=== PATIENT | female | born 1960 | race Caucasian/White ===

== ENCOUNTER 2017-11-11 07:07 | Day surgery (SDC) | payer BC, SELFPAY ==
[2017-11-08 14:10] VITALS: BMI 31.1
[2017-11-11] VITALS (15 sets, daily range): BP systolic 113–170; BP diastolic 63–88; PULSE 77–99; RESP 14–29; TEMP 36.3–36.5; O2SAT 93–99
--- NOTE | 2017-11-11 08:25 | P.PCN_ITS ---
- Procedure: Date: 11/11/17 Procedure Performed:: Colonoscopy with polypectomy Indications:: This is a 56-year-old female in need of screening colonoscopy. Performing Provider:: Surya Cobian MD Referring Provider:: Ro Hines APRN Sedation:: IV sedation with 13 milligrams of Versed and 200 mcg of fentanyl Procedure:: After informed consent was obtained, the patient was taken to the endoscopy suite. IV sedation ensued after she was transferred to the left lateral decubitus position. Digital rectal exam revealed no significant abnormality. The colonoscope was placed in position. The entire colon evaluated. Bowel preparation was poor with large volume irrigation and suctioning used to somewhat improve visualization. She also had fairly severe spasticity and tortuosity. Multiple polyps were excised (please see specimens below). The colonoscope was carefully removed and the patient was transferred to recovery. Findings:: Poor preparation Multiple polyps (see specimens) Fairly significant spasticity and lack of relaxation Moderate tortuosity Specimens:: Adjacent polyps at 75 cm 1.5 cm lobulated complex polyp at 70 cm (snared) 7 mm sessile polyp at 35 cm (snared) Polyp at 25 cm Lobulated polyp at 15 cm and 2 adjacent polyps (snare and biopsy) Recommendations:: Repeat colonoscopy with extended bowel patient in 6-12 months secondary to size/ nature/number of polyps and limited visualization. Complications:: No immediate with the exception of poor bowel preparation Estimated blood obtained (mL): 1
== END 2017-11-11 09:10 | disposition home or self-care (01) ==
LOC: OUTP 07:10
PROVIDERS: PCP Nurse Practitioner Family; Visit Provider Surgery
PROC: 0DJD8ZZ Inspection of Lower Intestinal Tract, Via Natural or Artificial Opening Endoscopic (ICD-10-PCS; CPT 45385; principal; 2017-11-11 07:30)
DX: Z12.11 Encounter for screening for malignant neoplasm of colon (principal); K63.5 Polyp of colon; D37.4 Neoplasm of uncertain behavior of colon
CPT/HCPCS: 45385; 45380; 99152; 99153

== ENCOUNTER → 2017-12-21 08:42 | Outpatient (POV) | payer BC, SELFPAY ==
[2017-12-21 11:07] LABS: Thyroid Stimulating Hormone 3.48 uIU/ml (0.358-3.740)
== END ==
PROVIDERS: PCP Nurse Practitioner Family; Visit Provider Internal Medicine
DX: Z12.2 Encounter for screening for malignant neoplasm of respiratory organs (principal); Z87.891 Personal history of nicotine dependence; R63.5 Abnormal weight gain
CPT/HCPCS: 36415; 84443

== ENCOUNTER → 2018-01-21 12:41 | Outpatient (CLI) | payer BC, SELFPAY ==
[2018-01-21 14:15] VITALS: BP 148/91; PULSE 98; RESP 16; O2SAT 95
[2018-01-21 14:30] VITALS: BP 133/92; PULSE 89; RESP 22; O2SAT 95
--- NOTE | 2018-01-21 14:31 | CT_ITS ---
CT lung screening Ordering Physician: Marlon Wilks MD Patient Age: 57 years: Female HISTORY: ITS.REASON: PERSONAL HX OF TOBACCO USE EXAM: CT LUNG LOW DOSE WO CONTRAST COMPARISON: None HISTORY: 30 pack-year history . One pack per day 30 years. Quit smoking 3 years ago FINDINGS: FINDINGS: No suspicious lung nodules or masses . The previously noted 2 noncalcified questionable areas of density/nodularity in the RUL centrally are less evident on today and appeared to be merely areas of minimal scarring. There is also some linear scarring anteriorly at the right upper lobe adjacent to mediastinum Prominent 8 mm Calcified granuloma lingula with associated fibrotic change. 8 mm Left apical dense calcified granuloma also noted and stable. It is a benign features Again No suspicious pulmonary nodules . LUNG PARENCHYMA Emphysema: Mild centrilobular emphysematous changes Airways disease: Subtle Minor bronchial thickening Fibrosis: Scattered mild pulmonary fibrotic change OTHER ANATOMIC REGIONS Lymph Nodes: Scattered calcified lymph nodes hilar regions bilaterally reflecting old granulomatous disease. Calcified nodes also seen towards left aspect mediastinum. No significant adenopathy Pleura: A few scattered areas of parenchymal scarring. Unimpressive. No pleural effusion or significant pleural findings. Cardiac: Coronary artery calcifications are present OTHER FINDINGS: Stable Mildly enlarged left adrenal gland likely due to modest benign adenoma. This is nicely seen on March 2017 CT abdomen as well . IMPRESSION:====== 1. No areas of significant concern. .. Follow-up in one year recommended. 2. Lung RADS Category: Category 1 Benign calcified granulomatous nodules.. (The previously small questioned RUL nodules last years study less evident today appear to be merely due to scarring on today's exam) 3..: Mild emphysematous change with old granulomatous disease and scattered minor areas of fibrosis. Stable appearing probable benign left adrenal nodule.. . RECOMMENDATIONS:: One year LDCT follow-up. TECHNIQUE: The exam was performed on a GE Light Speed [address] scanner using 3.0 mGy CTDI. A low dose helical CT CHEST was performed on a multi-detector scanner. All CT scans at this facility use one or more dose reduction techniques, viz.: automated exposure control; ma/kV adjustment per patient size (including targeted exams where dose is matched to indication; i.e. head) or iterative reconstruction technique. The LDCT was performed in a facility that meets the criteria for the screening program. Data regarding this exam was submitted to ACR which is an approved registry. The order for this exam indicates that it came as a result of a lung cancer screening counseling shard decision-making visit that included all the elements required of such a visit including smoking cessation. The radiologist interpreting this exam meets the CMS criteria for the LDCT lung cancer screening program. The exam is reported using the Lung-RADS classification scale and reported to the ACR registry. NOTE: This study was performed for the specific purposes of lung cancer screening and is not an alternative to diagnostic chest CT. RADIATION DOSE: CTDI vol(CT dose Index-volume) = 2.9mGy DLP (Dose Length Product) = 100.7 mGy-cm
== END ==
PROVIDERS: PCP Nurse Practitioner Family; Visit Provider Internal Medicine
DX: Z87.891 Personal history of nicotine dependence (principal); Z12.2 Encounter for screening for malignant neoplasm of respiratory organs; R06.02 Shortness of breath; J44.9 Chronic obstructive pulmonary disease, unspecified; R63.5 Abnormal weight gain
CPT/HCPCS: 94060; 94618; 94640; 94726; 94729

== ENCOUNTER → 2018-07-05 08:46 | Outpatient (POV) | payer BC, SELFPAY ==
--- NOTE | 2018-07-05 10:24 | XR_ITS ---
XR chest 2V HISTORY: ITS.REASON: Asthma-COPD OVERLAP SYMDROME, PAROXYSMAL NOCTURNAL DYSPNEA ORDERING PHYSICIAN: Tish Gracia PATIENT AGE: 57 years COMPARISON: None FINDINGS: Prominent pericardial fat pad noted on the right. Calcified granuloma is present in the left apex and lingula. No lobar consolidation or collapse. There is hyperinflation with attenuation of the peripheral pulmonary vessels consistent with COPD There is minimal blunting of the right CP angle suggesting trace effusion. No acute bony anomalies. IMPRESSION: Trace right-sided effusion. Mild hyperinflation consistent with COPD. Old granulomatous disease
[2018-07-05 11:09] LABS: Alanine Aminotransferase 58 U/L (12-78); Albumin Level 3.7 gm/dL (3.4-5.0); Albumin/Globulin Ratio 1.2 (1.1-1.8); Alkaline Phosphatase 111 U/L (46-116); Anion Gap 15.4 mEq/L (5-15); Aspartate Amino Transferase 28 U/L (15-37); Bilirubin,Total 0.4 mg/dL (0.2-1.0); Blood Urea Nitrogen 8 mg/dL (7-18); Calcium 8.9 mg/dL (8.5-10.1); Carbon Dioxide 26 mmol/L (21.0-32.0); Chloride 103 mmol/L (98-107); Creatine Kinase 43 U/L (26-192); Creatinine,Serum 0.54 mg/dL (0.55-1.02); Estimated Glomerular Filt Rate 116 ml/min (>60); GFR (African American) 140 ML/MIN (>60); Globulin 3.2 gm/dl (1.3-3.2); Glucose 129 mg/dL (74-106); Potassium 4.4 mmoL/L (3.5-5.1); Sodium 140 mmol/L (136-145); Total Protein,Serum 6.9 gm/dL (6.4-8.2)
[2018-07-05 11:15] LABS: Basophils % 0.4 % (0.1-2.0); Eosinophils # 0.2 K/mm3 (0.0-0.4); Eosinophils % 2.7 % (0.1-12.0); Hematocrit 44.2 % (37.0-47.0); Hemoglobin 14.7 g/dL (12.2-16.2); Lymphocytes # 1.8 K/mm3 (0.7-4.5); Lymphocytes % 23.3 K/mm3 (10-50); Mean Corpuscular HGB Conc 33.3 g/dL (31.8-35.4); Mean Corpuscular Hemoglobin 32.1 pg (27.0-31.2); Mean Corpuscular Volume 96.4 fl (81-99); Mean Platelet Volume 6.9 fl (7.4-10.4); Monocytes # 0.3 K/mm3 (0.1-1.0); Monocytes % 4.3 % (1.7-9.3); Neutrophils # 5.4 K/mm3 (1.8-7.8); Neutrophils % 69.2 % (37.0-80.0); Platelet Count 420 K/mm3 (142-424); Red Blood Count 4.58 M/mm3 (4.20-5.40); White Blood Count 7.8 K/mm3 (4.8-10.8)
[2018-07-05 11:56] LABS: D-Dimer < 100 ng/mL (0-400)
== END ==
LOC: SC 08:48 → RAD 10:04
PROVIDERS: PCP Nurse Practitioner Family; Visit Provider Nurse Practitioner Family
DX: R06.00 Dyspnea, unspecified (principal); J44.9 Chronic obstructive pulmonary disease, unspecified; M79.10 Myalgia, unspecified site
CPT/HCPCS: 36415; 71046; 80053; 82550; 85025; 85378; 93005

== ENCOUNTER → 2018-08-23 09:34 | Outpatient (POV) | payer BC, SELFPAY | PROVIDERS: Visit Provider Internal Medicine | DX: Z00.00 Encounter for general adult medical examination without abnormal findings (principal) ==

== ENCOUNTER → 2018-08-31 12:08 | Outpatient (CLI) | payer MEDICARE, SELFPAY ==
[2018-08-31 14:21] LABS: Alanine Aminotransferase 55 U/L (12-78); Albumin Level 3.8 gm/dL (3.4-5.0); Albumin/Globulin Ratio 1.1 (1.1-1.8); Alkaline Phosphatase 122 U/L (46-116); Anion Gap 18.4 mEq/L (5-15); Aspartate Amino Transferase 30 U/L (15-37); Bilirubin,Total 0.4 mg/dL (0.2-1.0); Blood Urea Nitrogen 8 mg/dL (7-18); Calcium 9.4 mg/dL (8.5-10.1); Carbon Dioxide 26 mmol/L (21.0-32.0); Chloride 100 mmol/L (98-107); Chol/HDL Ratio 2.2 (1-3.5); Cholesterol 249 mg/dL (140-200); Creatinine,Serum 0.52 mg/dL (0.55-1.02); Estimated Glomerular Filt Rate 121 ml/min (>60); GFR (African American) 147 ML/MIN (>60); Globulin 3.5 gm/dl (1.3-3.2); Glucose 117 mg/dL (74-106); HDL Cholesterol 113 mg/dL (29-89); LDL Cholesterol 114 mg/dL (0-130); Potassium 4.4 mmoL/L (3.5-5.1); Sodium 140 mmol/L (136-145); Total Protein,Serum 7.3 gm/dL (6.4-8.2); Triglycerides 108 mg/dL (30-200); VLDL Cholesterol 22 mg/dL (0-40)
== END ==
PROVIDERS: Visit Provider Nurse Practitioner Family
DX: Z00.00 Encounter for general adult medical examination without abnormal findings (principal); J44.9 Chronic obstructive pulmonary disease, unspecified; I10 Essential (primary) hypertension
CPT/HCPCS: 36415; 80053; 80061

== ENCOUNTER → 2018-09-13 10:52 | Outpatient (CLI) | payer MEDICARE, SELFPAY ==
--- NOTE | 2018-09-13 10:53 | MM_ITS ---
MM Dig screening mamm BI w/CAD ORDERING PHYSICIAN : Ro Hines PATIENT AGE: 57 years GENDER: Female COMPARISON: Previous mammogram from [facility] September 01, 2017. We previous called other prior [place] mammogram studies in but they have never arrived. INDICATION: ITS.REASON: SCREENING no hormones. No new complaints. Previous lumpectomy and radiation for breast malignancy right breast 2001 Family history. Maternal grandmother with breast cancer. TECHNIQUE: Standard CC and MLO images were obtained. R2 CAD reviewed. FINDINGS: With mild to moderate scattered fibroglandular elements bilaterally. Overall lower density breast. No dominant or suspicious mass ; nor suspicious calcifications either breast. RIGHT BREAST: No new findings.. Surprisingly minimal architectural changes from the previous lumpectomy right breast. Only noted with some mild architectural distortion towards upper-outer quadrant Architecture and appearance is shows no change on either the right breast. Stable Scattered benign calcifications again noted Only history sheet the technologist noted clinical scar at 9:00 right breast as well as towards right axilla LEFT BREAST: Large axillary lymph node left breast again observed. On . Stable benign calcifications upper-outer quadrant left breast. Scattered. Can be followed. IMPRESSION: ... Stable bilateral mammogram 2017. No significant new findings. Modest stable Postsurgical changes evident at right breast. No new areas of concern either breast. Bilateral follow-up one year recommended BI-RADS Category: 2 Benign Finding(s) RECOMMENDED FOLLOW-UP: 1YR 1 YEAR FOLLOW-UP (A letter has been sent to the patient regarding results of the study.)
== END ==
PROVIDERS: PCP Nurse Practitioner Family; Visit Provider Nurse Practitioner Family
DX: Z12.31 Encounter for screening mammogram for malignant neoplasm of breast (principal); Z85.3 Personal history of malignant neoplasm of breast
CPT/HCPCS: 77067

== ENCOUNTER → 2018-09-29 11:12 | Outpatient (CLI) | payer MEDICARE, SELFPAY ==
[2018-09-29 12:53] LABS: Anion Gap 16.8 mEq/L (5-15); Blood Urea Nitrogen 12 mg/dL (7-18); Calcium 9.4 mg/dL (8.5-10.1); Carbon Dioxide 26 mmol/L (21.0-32.0); Chloride 100 mmol/L (98-107); Creatinine,Serum 0.74 mg/dL (0.55-1.02); Estimated Glomerular Filt Rate 81 ml/min (>60); GFR (African American) 98 ML/MIN (>60); Glucose 106 mg/dL (74-106); Potassium 4.8 mmoL/L (3.5-5.1); Sodium 138 mmol/L (136-145)
== END ==
PROVIDERS: Visit Provider Nurse Practitioner Family
DX: I10 Essential (primary) hypertension (principal)
CPT/HCPCS: 36415; 80048

== ENCOUNTER → 2018-12-28 12:09 | Outpatient (CLI) | payer MEDICARE, SELFPAY ==
[2018-12-28 13:22] LABS: Basophils % 0.5 % (0.1-2.0); Eosinophils # 0.2 K/mm3 (0.0-0.4); Eosinophils % 2.5 % (0.1-12.0); Hematocrit 42.1 % (37.0-47.0); Hemoglobin 14.1 g/dL (12.2-16.2); Lymphocytes # 1.6 K/mm3 (0.7-4.5); Lymphocytes % 21.9 % (10-50); Mean Corpuscular HGB Conc 33.6 g/dL (31.8-35.4); Mean Corpuscular Hemoglobin 31.8 pg (27.0-31.2); Mean Corpuscular Volume 94.5 fl (81-99); Mean Platelet Volume 6.6 fl (7.4-10.4); Monocytes # 0.4 K/mm3 (0.1-1.0); Neutrophils # 5.2 K/mm3 (1.8-7.8); Neutrophils % 70.2 % (37.0-80.0); Platelet Count 428 K/mm3 (142-424); Red Blood Count 4.45 M/mm3 (4.20-5.40); White Blood Count 7.3 K/mm3 (4.8-10.8)
[2018-12-28 14:17] LABS: Alanine Aminotransferase 47 U/L (12-78); Blood Urea Nitrogen 7 mg/dL (7-18)
[2018-12-28 14:22] LABS: Albumin Level 3.6 gm/dL (3.4-5.0); Albumin/Globulin Ratio 0.9 (1.1-1.8); Alkaline Phosphatase 104 U/L (46-116); Anion Gap 16.8 mEq/L (5-15); Aspartate Amino Transferase 29 U/L (15-37); Bilirubin,Total 0.4 mg/dL (0.2-1.0); Carbon Dioxide 24 mmol/L (21.0-32.0); Chloride 103 mmol/L (98-107); Creatinine,Serum 0.61 mg/dL (0.55-1.02); Estimated Glomerular Filt Rate 100 ml/min (>60); GFR (African American) 121 ML/MIN (>60); Globulin 3.8 gm/dl (1.3-3.2); Glucose 107 mg/dL (74-106); Potassium 3.8 mmoL/L (3.5-5.1); Sodium 140 mmol/L (136-145); Thyroid Stimulating Hormone 2.79 uIU/ml (0.358-3.740); Total Protein,Serum 7.4 gm/dL (6.4-8.2)
== END ==
PROVIDERS: PCP Internal Medicine Adolescent Medicine; Visit Provider Nurse Practitioner Family
DX: R00.2 Palpitations (principal); R42 Dizziness and giddiness; R06.02 Shortness of breath
CPT/HCPCS: 36415; 80053; 84443; 85025; 93225; 93226

== ENCOUNTER → 2019-01-03 14:10 | Outpatient (CLI) | payer MEDICARE, SELFPAY ==
--- NOTE | 2019-01-03 | CA_ITS ---
PROCEDURE: 2-D M-mode and color Doppler study INDICATIONS FOR THE TEST: Chest pain COPD Heart Murmur Tobacco Smoking PalpitationsX Fatigue Syncope Edema Hypertension Diabetes Mellitus Rheumatic Fever SOB DOEXObesity Hyperlipidemia Family History HD Additional History DIZZINESS BUBBLE STUDY APPEARS NEGATIVE PATIENT INFORMATION HEIGHT: 62 WEIGHT:175 GENDER: Female B/P:110/70 2-D/M-MODE INTERPRETATION: 2-D MEASUREMENTS OBSERVED VALUES IN CMS Right Ventricular Dimension (RVDd) 2.0 Interventricular Septum (Thickness)(IVsd) 1.0 Left Ventricular Internal Dimensions(LVIDd) 4.9 Left Ventricular Posterior Wall (Thickness)(LVPWd) 1.0 Aortic Root 3.3 Aortic Cusp Separation 1.7 Left Atrial Dimensions (LAD) 3.0 2D 1. Left atrium is normal size, left ventricle is normal size, there is no concentric left ventricular hypertrophy, visually estimated ejection fraction 55% with no regional wall motion abnormality. 2. The right atrium and right ventricle are normal size and contractility. 3. The aortic valve is minimally thickened and fibrosed. 4. The mitral and tricuspid valvular grossly normal. 5. The pulmonic valve is poorly visualized. 6. No significant pericardial effusion noted. DOPPLER INTERROGATION: Doppler interrogation of the aortic, mitral and tricuspid valvular presence of mild mitral and tricuspid regurgitation, tricuspid regurgitation jet velocity is inadequate for calculation of the right ventricular systolic pressure, grade 1 diastolic dysfunction seen without tissue Doppler evidence of raised left atrial pressure, agitated saline contrast study fails to identify intracardiac shunt. CONCLUSION: 1. Normal left ventricular size, preserved left ventricular systolic function, visually estimated ejection fraction 55% with no regional wall motion abnormality, grade 1 diastolic dysfunction seen without tissue Doppler evidence of raised left atrial pressure. 2. Mild mitral and tricuspid regurgitation 3. Agitated saying contrast study fails to identify intracardiac shunt.
== END ==
PROVIDERS: PCP Nurse Practitioner Family; Visit Provider Nurse Practitioner Family
DX: R00.2 Palpitations (principal); R42 Dizziness and giddiness; R06.02 Shortness of breath
CPT/HCPCS: 93306

== ENCOUNTER → 2019-01-31 06:47 | Outpatient (CLI) | payer MEDICARE, SELFPAY ==
--- NOTE | 2019-01-31 06:52 | NM_ITS ---
SPECT MYOCARDIAL PERFUSION SCAN, REST AND STRESS: EXERCISE STRESS: [facility] REVIEW QGS EF AND WALL MOTION EVALUATION: QPS - PERFUSION EVALUATION: HISTORY: SOB, Palpitations, Syncope, HTN, Family history PROCEDURE: Rest imaging performed after administration of10.60 millicuries Tc MIBI. Dose administered at7:00 a.m., with imaging thereafter. Stress imaging was then performed following5 minutes 30 seconds of exercise stress. The patient achieved a heart [id number] with projected heart rate of137 . Resting BP126/82 with stress 158/85. At maximum exercise stress,30.7 millicuries Tc MIBI administered at8:20 a.m. with [id number] minutes thereafter. FINDINGS: Perfusion Evaluation: The single slice spect images as well as the [facility] bull's-eye data summary were reviewed. Wall Motion and Ejection Fraction Evaluation: Gated SPECT review and analysis used to evaluate these features. There is a 65 % left ventricular ejection fraction. There seems to be good wall motion Uniform myocardial activity at both stress and rest IMPRESSION: No scintigraphic evidence of stenosis is myocardial ischemia with normal ejection fraction normal wall motion
--- NOTE | 2019-01-31 07:34 | HMH.ITSHM ---
Current Home Medications as stated by this patient Kaykay Wakefield or personnel representative. []PROAIR CLARITAN RINITADINE MELATONIN BYSTOLIC LISINOPRIL MONTELUKAST NASAL SPRAY TRELEGY ELIPTA ALBUTEROL
== END ==
PROVIDERS: PCP Nurse Practitioner Family; Visit Provider Nurse Practitioner Family
DX: R06.09 Other forms of dyspnea (principal); R00.2 Palpitations; I49.3 Ventricular premature depolarization
CPT/HCPCS: 78452; 93017

== ENCOUNTER → 2019-02-09 12:40 | Outpatient (CLI) | payer MEDICARE, SELFPAY ==
--- NOTE | 2019-02-09 13:00 | CT_ITS ---
CT lung screening EXAM: CT LUNG LOW DOSE WO CONTRAST HISTORY: Greater than 35 pack year smoking history, asymptomatic for lung cancer ITS.REASON: HX TOBACCO USE ORDERING PHYSICIAN: Marlon Wilks MD PATIENT AGE: 58 years COMPARISON: 01/21/2018 TECHNIQUE: The exam was performed on a GE Light Speed [address] scanner using 2.90 mGy CTDI. A low dose helical CT CHEST was performed on a multi-detector scanner. All CT scans at the facility use one or more dose reduction, viz: automated exposure control, ma/kV adjustment per patient size (including targeted exams where dose is matched to indication, i.e. head), or iterative reconstruction technique. The LDCT was performed in a facility that meets the criteria for the screening program. Data regarding this exam was submitted to ACR which is an approved registry. The order for this exam indicates that it came as a result of a lung cancer screening counseling shard decision-making visit that included all the elements required of such a visit including smoking cessation. The radiologist interpreting this exam meets the CMS criteria for the LDCT lung cancer screening program. The exam is reported using the Lung-RADS classification scale and reported to the ACR registry. NOTE: This study was performed for the specific purposes of lung cancer screening and is not an alternative to diagnostic chest CT. RADIATION DOSE: CTDI vol(CT dose Index-volume) = 2.90mG DLP (Dose Length Product) = 96.38 mGcm FINDINGS: Centrilobular emphysema/COPD. Old granulomatous disease with scattered calcified granulomas and scattered areas of scarring. No suspicious pulmonary nodules identified. There are coronary artery calcifications. Overall no significant change IMPRESSION: 1. Lung RADS Category: 2, benign 2. Other findings: COPD/edema, or granulomatous disease, coronary artery disease RECOMMENDATIONS: 12 month LDCT follow-up
== END ==
PROVIDERS: PCP Nurse Practitioner Family; Visit Provider Internal Medicine
DX: Z12.2 Encounter for screening for malignant neoplasm of respiratory organs (principal); Z87.891 Personal history of nicotine dependence

== ENCOUNTER → 2019-02-28 10:05 | Outpatient (POV) | payer MEDICARE, SELFPAY | PROVIDERS: Visit Provider Internal Medicine | DX: Z00.00 Encounter for general adult medical examination without abnormal findings (principal) ==

== ENCOUNTER → 2019-07-25 11:13 | Outpatient (POV) | payer MEDICARE, SELFPAY | PROVIDERS: Visit Provider Internal Medicine | DX: Z00.00 Encounter for general adult medical examination without abnormal findings (principal) ==

== ENCOUNTER → 2019-08-18 12:59 | Outpatient (CLI) | payer MEDICARE, SELFPAY ==
[2019-08-18 13:31] LABS: Basophils % 0.6 % (0.1-2.0); Eosinophils # 0.1 K/mm3 (0.0-0.4); Eosinophils % 1.8 % (0.1-12.0); Hematocrit 43.6 % (37.0-47.0); Hemoglobin 14.2 g/dL (12.2-16.2); Lymphocytes # 1.6 K/mm3 (0.7-4.5); Lymphocytes % 21.1 % (10-50); Mean Corpuscular HGB Conc 32.5 g/dL (31.8-35.4); Mean Corpuscular Hemoglobin 30.7 pg (27.0-31.2); Mean Corpuscular Volume 94.4 fl (81-99); Mean Platelet Volume 7.5 fl (7.4-10.4); Monocytes # 0.4 K/mm3 (0.1-1.0); Monocytes % 5.4 % (1.7-9.3); Neutrophils # 5.4 K/mm3 (1.8-7.8); Neutrophils % 71.1 % (37.0-80.0); Platelet Count 422 K/mm3 (142-424); Red Blood Count 4.62 M/mm3 (4.20-5.40); White Blood Count 7.5 K/mm3 (4.8-10.8)
[2019-08-18 14:33] LABS: Alanine Aminotransferase 34 U/L (12-78); Albumin Level 3.7 gm/dL (3.4-5.0); Albumin/Globulin Ratio 1.2 (1.1-1.8); Alkaline Phosphatase 112 U/L (46-116); Anion Gap 13.1 mEq/L (5-15); Aspartate Amino Transferase 25 U/L (15-37); Bilirubin,Total 0.5 mg/dL (0.2-1.0); Blood Urea Nitrogen 10 mg/dL (7-18); Calcium 9.2 mg/dL (8.5-10.1); Carbon Dioxide 26 mmol/L (21.0-32.0); Chloride 100 mmol/L (98-107); Chol/HDL Ratio 2.7 (1-3.5); Cholesterol 225 mg/dL (140-200); Creatinine,Serum 0.53 mg/dL (0.55-1.02); Estimated Glomerular Filt Rate 118 ml/min (>60); GFR (African American) 143 ML/MIN (>60); Globulin 3.2 gm/dl (1.3-3.2); Glucose 105 mg/dL (74-106); HDL Cholesterol 84 mg/dL (29-89); LDL Cholesterol 120 mg/dL (0-130); Potassium 4.1 mmoL/L (3.5-5.1); Sodium 135 mmol/L (136-145); Total Protein,Serum 6.9 gm/dL (6.4-8.2); Triglycerides 104 mg/dL (30-200); VLDL Cholesterol 21 mg/dL (0-40)
== END ==
PROVIDERS: Visit Provider Nurse Practitioner Family
DX: I49.3 Ventricular premature depolarization (principal); I10 Essential (primary) hypertension; R59.1 Generalized enlarged lymph nodes
CPT/HCPCS: 36415; 80053; 80061; 85025

== ENCOUNTER → 2019-08-25 09:56 | Outpatient (CLI) | payer MEDICARE, SELFPAY ==
--- NOTE | 2019-08-25 10:11 | US_ITS ---
PROCEDURE: US EXTREMITY LT LIMITED CLINICAL INDICATION: LYMPHADENOPATHY,LT LUMP DISTAL TO antecubital fossa COMPARISON: No exams were available for comparison FINDINGS: There is normal appearing echogenicity of the subcutaneous tissue at the site of the palpable lump. More homogeneous echogenicity is seen secondary to normal appearing muscles of the proximal forearm. There is no abnormal cystic or solid mass identified. IMPRESSION: Unremarkable targeted ultrasound at the site of the patient's complaint Dictated by: Dr. Aj Barrios MD 08/25/2019 10:[address] Aj Barrios MD in [place] 08/25/2019 10:59
== END ==
PROVIDERS: Visit Provider Nurse Practitioner Family
DX: R59.1 Generalized enlarged lymph nodes (principal)
CPT/HCPCS: 76882

== ENCOUNTER 2019-11-30 08:00 | Outpatient (RCR) | payer MEDICARE, SELFPAY | END 2019-12-27 10:07 | disposition home or self-care (01) | LOC: PT.CARL 08:00 | PROVIDERS: Visit Provider Nurse Practitioner Family | DX: M75.102 Unspecified rotator cuff tear or rupture of left shoulder, not specified as traumatic (principal); M75.101 Unspecified rotator cuff tear or rupture of right shoulder, not specified as traumatic | CPT/HCPCS: 97014; 97033; 97035; 97110; 97140; 97163; G0283 ==

== ENCOUNTER → 2020-10-04 12:42 | Outpatient (CLI) | payer MEDICARE, SELFPAY ==
[2020-10-04 15:08] LABS: Anion Gap 14.5 mEq/L (5-15); Blood Urea Nitrogen 11 mg/dl (7-17); Calcium 10.1 mg/dl (8.4-10.2); Carbon Dioxide 28 mmol/L (22.0-30.0); Chloride 99 mmol/L (98-107); Estimated Glomerular Filt Rate 163 ml/min (>60); GFR (African American) 197 ML/MIN (>60); Glucose 111 mg/dl (74-100); Potassium 4.5 mmoL/L (3.5-5.1); Sodium 137 mmol/L (136-145)
== END ==
PROVIDERS: Visit Provider Nurse Practitioner Family
DX: E87.1 Hypo-osmolality and hyponatremia (principal)
CPT/HCPCS: 36415; 80048

== ENCOUNTER → 2021-01-08 09:31 | Outpatient (CLI) | payer MEDICARE, SELFPAY ==
[2021-01-08 14:00] LABS: Chloride 102 mmol/L (98-107)
[2021-01-08 14:01] LABS: Potassium 4.4 mmoL/L (3.5-5.1); Sodium 139 mmol/L (136-145)
[2021-01-08 14:03] LABS: Alanine Aminotransferase 24 U/L (12-78); Alkaline Phosphatase 110 U/L (38-126); Aspartate Amino Transferase 34 U/L (14-36); Bilirubin,Total 0.5 mg/dl (0.2-1.3); Blood Urea Nitrogen 10 mg/dl (7-17); Estimated Glomerular Filt Rate 162 ml/min (>60); GFR (African American) 196 ML/MIN (>60)
[2021-01-08 14:04] LABS: Albumin Level 4.2 g/dl (3.5-5.0); Albumin/Globulin Ratio 1.8 (1.1-1.8); Anion Gap 10.4 mEq/L (5-15); Calcium 9.5 mg/dl (8.4-10.2); Carbon Dioxide 31 mmol/L (22.0-30.0); Chol/HDL Ratio 2.3 (1-3.5); Cholesterol 189 mg/dl (140-200); Globulin 2.3 g/dL (1.3-3.2); Glucose 118 mg/dl (74-100); HDL Cholesterol 83 mg/dl (40-60); Total Protein,Serum 6.5 g/dl (6.3-8.2); Triglycerides 158 mg/dl (30-150); VLDL Cholesterol 32 mg/dL (0-40)
[2021-01-08 14:15] LABS: Direct LDL Cholesterol 77.83 mg/dL (100-129)
[2021-01-08 14:34] LABS: Hemoglobin A1C 5.9 % (4.0-6.0)
== END ==
PROVIDERS: Visit Provider Nurse Practitioner Family
DX: I49.3 Ventricular premature depolarization (principal); I10 Essential (primary) hypertension; R73.03 Prediabetes
CPT/HCPCS: 36415; 80053; 80061; 83036

== ENCOUNTER → 2021-02-12 10:18 | Outpatient (CLI) | payer MEDICARE, SELFPAY ==
--- NOTE | 2021-02-12 10:20 | MM_ITS ---
PROCEDURE INFORMATION: Exam: MG Screening 3D Mammography Exam date and time: 02/12/2021 10:20 AM Age: 60 years old Clinical indication: Encounter for screening mammogram for malignant neoplasm of breast TECHNIQUE: Imaging protocol: Screening tomosynthesis and 2D mammography including computer-aided detection (CAD) when performed. COMPARISON: 1. MG SCBI MM Dig screening mamm BI w/CAD 09/13/2018 11:00 AM 2. MG DMSB DIG MAMM-SCREEN CHRISTIE W/CAD 09/01/2017 8:28 AM FINDINGS: MAMMOGRAPHY: Breast composition: The breast tissue is composed of scattered areas of fibroglandular density. Mass: None. Architectural distortion: Stable post operative architectural distortion in the right upper outer quadrant due to prior lumpectomy for carcinoma. Calcifications: No suspicious calcifications. Asymmetric density: None. Skin thickening: None. Axillary adenopathy: None. IMPRESSION: No mammographic evidence of malignancy. Annual screening is recommended unless otherwise clinically indicated. ASSESSMENT: BI-RADS Category 2: Benign
== END ==
PROVIDERS: PCP Nurse Practitioner Family; Visit Provider Nurse Practitioner Family
DX: Z12.31 Encounter for screening mammogram for malignant neoplasm of breast (principal)
CPT/HCPCS: 77063; 77067

== ENCOUNTER → 2021-05-10 10:18 | Outpatient (CLI) | payer MEDICARE, SELFPAY ==
[2021-05-10 10:54] LABS: Basophils # 0.1 K/mm3 (0-0.2); Basophils % 0.8 % (0.1-2.0); Eosinophils # 0.2 K/mm3 (0.0-0.4); Eosinophils % 2.3 % (0.1-12.0); Hematocrit 45.2 % (37.0-47.0); Hemoglobin 14.6 g/dL (12.2-16.2); Lymphocytes # 1.9 K/mm3 (0.7-4.5); Lymphocytes % 24.6 % (10-50); Mean Corpuscular HGB Conc 32.4 g/dL (31.8-35.4); Mean Corpuscular Hemoglobin 30.7 pg (27.0-31.2); Mean Corpuscular Volume 94.7 fl (81-99); Monocytes # 0.5 K/mm3 (0.1-1.0); Monocytes % 6.3 % (1.7-9.3); Platelet Count 351 K/mm3 (142-424); Red Blood Count 4.77 M/mm3 (4.20-5.40); Red Cell Distribution Width 13.9 % (11.5-17.5); White Blood Count 7.6 K/mm3 (4.8-10.8)
[2021-05-10 11:36] LABS: Hemoglobin A1C 5.3 % (4.0-6.0)
[2021-05-10 11:39] LABS: Alanine Aminotransferase 26 U/L (12-78); Albumin Level 4.5 g/dl (3.5-5.0); Albumin/Globulin Ratio 1.9 (1.1-1.8); Alkaline Phosphatase 104 U/L (38-126); Anion Gap 15.7 mEq/L (5-15); Aspartate Amino Transferase 31 U/L (14-36); Bilirubin,Total 0.5 mg/dl (0.2-1.3); Blood Urea Nitrogen 13 mg/dl (7-17); Calcium 9.3 mg/dl (8.4-10.2); Carbon Dioxide 25 mmol/L (22.0-30.0); Chloride 103 mmol/L (98-107); Chol/HDL Ratio 2.9 (1-3.5); Cholesterol 189 mg/dl (140-200); Estimated Glomerular Filt Rate 162 ml/min (>60); GFR (African American) 196 ML/MIN (>60); Globulin 2.4 g/dL (1.3-3.2); Glucose 115 mg/dl (74-100); HDL Cholesterol 66 mg/dl (40-60); Potassium 4.7 mmoL/L (3.5-5.1); Sodium 139 mmol/L (136-145); Total Protein,Serum 6.9 g/dl (6.3-8.2); Triglycerides 174 mg/dl (30-150); VLDL Cholesterol 35 mg/dL (0-40)
[2021-05-10 11:51] LABS: Direct LDL Cholesterol 95.36 mg/dL (100-129)
== END ==
PROVIDERS: Visit Provider Nurse Practitioner Family
DX: Z00.00 Encounter for general adult medical examination without abnormal findings (principal); I10 Essential (primary) hypertension; E78.2 Mixed hyperlipidemia; R73.09 Other abnormal glucose; Z85.3 Personal history of malignant neoplasm of breast
CPT/HCPCS: 80053; 80061; 83036; 85025

== ENCOUNTER → 2021-07-04 18:15 | Outpatient (CLI) | payer MEDICARE, SELFPAY ==
[2021-07-04 19:19] LABS: 25-OH Vitamin D, Total 20.4 ng/mL (30-100)
[2021-07-04 21:01] LABS: Thyroid Stimulating Hormone 1.73 uIU/mL (0.465-4.68)
[2021-07-04 21:19] LABS: Vitamin B12 755 pg/mL (239-931)
== END ==
PROVIDERS: Visit Provider Nurse Practitioner Family
DX: R20.2 Paresthesia of skin (principal); E55.9 Vitamin D deficiency, unspecified
CPT/HCPCS: 82306; 82607; 84443

== ENCOUNTER → 2021-07-14 10:26 | Outpatient (POV) | payer MEDICARE, SELFPAY ==
[2021-07-14 10:55] VITALS: BP 134/95; PULSE 73; RESP 18; O2SAT 95; BMI 32.0
--- NOTE | 2021-07-14 11:52 | HMH.PMCON ---
Assessment and Plan (1) Degenerative disc disease, lumbar Status: Chronic Category: Medical Code(s): M51.36 - Other intervertebral disc degeneration, lumbar region (2) Lumbar radiculopathy Status: Chronic Category: Medical Code(s): M54.16 - Radiculopathy, lumbar region - Assessment and plan all Dx Assessment and Plan for all problems:: Patient is a 60-year-old white female for consultation for low back pain with radiation into bilateral hips, groin, and legs. The pain does stop around the knee area though she does report to have paresthesia into her bilateral feet and hands. The patient is having new onset incontinence fecal. She does have a history of urinary incontinence. She does have an MRI from June 21, 2021 from [facility] that does show the patient to have foraminal encroachment bilateral at the L3-L4 area with small disc bulge. We will schedule the patient for a lumbar epidural steroid injection at L3-L4 area. The patient is not on anticoagulation therapy. She will continue with anti-inflammatories. Patient was unable to afford physical therapy and was not able to go due to financial issues. She is not diabetic. Due to fecal incontinence new onset we will also refer the patient to neurosurgery. We will plan to see the patient back in the clinic after her injection and following her neurosurgical evaluation to discuss a further plan of care. Possible side effects of corticosteroids have been discussed with the patient. Risks and benefits of the procedure have been explained to the patient. Patient would like to proceed with the procedure. Patient has been instructed to contact the clinic with any concerns before the next appointment. Dr. Holguin has reviewed this note and agrees with this plan of care. This note was dictated using voice recognition software and make contain errors or omissions. HPI - Data of Consult Patient: new to practice Consult date: 07/14/21 Requesting Physician: Iraida Ruby APRN - Consult Narrative Reason for consult: Low back pain History of present illness: Ms. Wakefield is a 60 year old female who presents today for consultation for chronic low back pain. Patient says that she has low back pain with radiation into bilateral hips and groin as well as radiation into bilateral legs stopping at the knee. She says she has had this pain for approximately 3 to 4 years which is progressively worsened. 2 years ago, the patient says that she did have a fall down stairs on her front porch. She says that she was having back pain prior to the fall, however, she feels the pain is worsened. The pain is a deep type pain for which she is unable to describe any further. She says that standing and walking worsen the pain she is having pins and needle type sensation in her bilateral feet and hands. She reports to have recently had a rash on her bilateral palms with numbness and tingling. The patient's primary care provider did start her on vitamin D. Patient says that she is also having incontinence new onset of a bowel. She does have urinary incontinence which is not new. She says over the last few weeks fecal incontinence has worsened. Patient does have imaging from [facility] from June 21, 2021. Patient is unable to undergo physical therapy due to inability to pay for the service. Patient reports that she and her have been unemployed since before [facility]. She has tried anti-inflammatories with no relief. She has also used ice and heat therapies with no relief. Patient rates her pain a 7 or an 8 out of 10. CC: Iraida Ruby APRN [facility] History I have reviewed the patient's past medical history: Yes Medical History: Reports:: Asthma, Cancer, Chronic Obstructive Pulmonary Disease (COPD), Gastroesophageal Reflux Disease(GERD), Hypertension, Lung Disease Denies:: Diabetes Mellitus Type 1, Diabetes Mellitus Type 2, Internal Pacemaker, Seizures
== END ==
PROVIDERS: Visit Provider Clinical Nurse Specialist Family Health
DX: M51.16 Intervertebral disc disorders with radiculopathy, lumbar region (principal)
CPT/HCPCS: 99202; G0463

== ENCOUNTER 2021-07-18 12:46 | Day surgery (SDC) | payer MEDICARE, SELFPAY ==
[2021-07-18 12:58] VITALS: BP 136/82; PULSE 62; RESP 18; TEMP 36.6; O2SAT 95; BMI 32.0
[2021-07-18 13:03] VITALS: BP 132/66; PULSE 70; RESP 20; O2SAT 96
[2021-07-18 13:05] VITALS: BP 140/75; PULSE 72; RESP 20; O2SAT 95
--- NOTE | 2021-07-18 13:06 | HMH.PMPROC ---
- Procedure Date: 07/18/21 Time: 13:06 Anesthesiologist:: Sanford Holguin MD Complications:: None Pre-procedure Diagnosis:: Degenerative disc disease of lumbar spine with lumbar radiculopathy symptoms Post-procedure Diagnosis:: Degenerative disc disease of lumbar spine with lumbar radiculopathy symptoms Indications for Procedure:: This patient is a pleasant 60-year-old white female who we are treating for low back pain with lumbar radiculopathy symptoms. She has some increasing pain in her back rating down her legs. We will plan on lumbar epidural steroid injection under fluoroscopy today. Procedure Details:: Informed consent was obtained and the risk and benefits of the procedure was explained to the patient. The patient was taken to the procedure room. The patient was placed prone on the procedure table. The patient was prepped and draped in sterile fashion. C-arm fluoroscopy was used to view the lumbar spine. Skin and subcutaneous tissues were anesthetized using lidocaine. I placed an 18-gauge epidural needle and advanced into the L4-L5 interspace using fluoroscopic guidance and [id number] to air. After confirmation of needle placement in the epidural space with dye I injected 2 mL of lidocaine 1.5% with Depo-Medrol 80 mg. Patient tolerated the procedure well with no complications. Plan and Disposition:: We will follow-up with her in 2 weeks. Will reevaluate symptoms at that time.
[2021-07-18 13:20] VITALS: BP 147/87; PULSE 65; RESP 20; O2SAT 92
== END 2021-07-18 13:20 | disposition home or self-care (01) ==
LOC: SC.PAINP 12:47
PROVIDERS: PCP Nurse Practitioner Family; Visit Provider Anesthesiology
DX: M51.16 Intervertebral disc disorders with radiculopathy, lumbar region (principal); I10 Essential (primary) hypertension; J44.9 Chronic obstructive pulmonary disease, unspecified; K21.9 Gastro-esophageal reflux disease without esophagitis
CPT/HCPCS: 62323; Q9966

== ENCOUNTER → 2021-08-07 10:56 | Outpatient (POV) | payer MEDICARE, SELFPAY ==
[2021-08-07 11:03] VITALS: BP 149/80; PULSE 78; RESP 18; O2SAT 95; BMI 32.0
--- NOTE | 2021-08-07 11:18 | HMH.PAINSOAP ---
[facility] Pain Management SOAP Note Subjective:: Patient is a 60-year-old white female who presents today for follow-up after a lumbar epidural steroid injection at L4-L5 area. Patient is rating her pain a 7 out of 10 today. She says that she did get some relief following the injection. She feels she got up to 30% relief with the injection, but she is now having pain that is in bilateral low back area, bilateral buttock, and bilateral groin area. She says that she feels as though she has muscles pulling into the groin area with standing and walking. She does report walking upstairs makes her pain severe. She also says that sitting improves the pain. Patient is complaining of worsening diarrhea. At last visit there was concern that incontinence could be possibly related to nerve root impingement lumbar spine. As result the patient was referred to neurosurgery. Patient says that she has been worked up in the past for IBS with her primary care provider with minimal relief of symptoms. She does report recent weight loss without dieting. She did see gastroenterology in the past and does say that she was worked up for colonoscopy and was told that she did have polyps at that time. That was approximately 2 years ago. The patient says that the frequent incontinence did not subside following the injection. She does continue with home stretching. She also continues with oral medications [id number] as needed for pain. At last visit, the patient was given tramadol 50 mg as needed pain. This did give her some relief of pain. At about 20%. Review of Systems General: No recent weight changes, no fever, no sleep disturbances Respiratory: No cough, no shortness of air, no recurring pulmonary infections Cardiovascular/peripheral vascular: No chest pain, no palpitations, no edema, no shortness of breath Gastrointestinal: No new onset incontinence, normal bowel movements reported Genitourinary: No new onset incontinence Musculoskeletal: Low back pain bilaterally, bilateral buttock pain, bilateral groin pain made worse with standing walking and climbing stairs Psychiatric: [Normal mood/affect] Neurological: [Denies weakness in extremities], [denies balance issues] Objective:: Physical exam General: Alert and oriented x3, no acute distress, pleasant and cooperative Lungs: Respirations even and unlabored, symmetrical chest expansion Eyes: PERRL Musculoskeletal: Flexion and extension of lumbar [spine] somewhat guarded secondary to pain, [antalgic gait noted], positive Sharon's test bilaterally, positive compression test bilaterally, positive distraction test bilaterally, positive Tanner's test bilaterally Neurological: Speech clear, no gross sensory deficit Assessment:: Bilateral low back pain, bilateral buttock pain, bilateral sacroiliitis Plan:: We will schedule the patient for bilateral SI joint injections. She has been advised to contact her primary care provider regarding continued diarrhea. She may need a GI work-up. She reports she has not seen GI in approximately 2 years. Patient does have a positive Sharon's, compression, distraction test along with a positive Tanner's test bilaterally. We will plan for bilateral SI joint injections and see the patient back in the clinic after the injections for reevaluation of symptoms. Patient is not diabetic. She does report that she got approximately 30 to 40% relief with her lumbar epidural steroid injection. Possible side effects of corticosteroids have been discussed with the patient. Risks and benefits of the procedure have been explained to the patient. Patient would like to proceed with the procedure. Patient has been instructed to contact the clinic with any concerns before the next appointment. Dr. Holugin has reviewed this note and agrees with this plan of care. This note was dictated using voice recognition software and make contain errors or omissions. [facility] History I
== END ==
PROVIDERS: Visit Provider Clinical Nurse Specialist Family Health
DX: M54.59 Other low back pain (principal); M46.1 Sacroiliitis, not elsewhere classified; M79.659 Pain in unspecified thigh
CPT/HCPCS: 99212; G0463

== ENCOUNTER → 2021-08-18 13:50 | Outpatient (CLI) | payer MEDICARE, SELFPAY ==
[2021-08-18 14:11] LABS: Adenovirus F 40/41, stool Not Detected (NotDetected); Astrovirus Not Detected (NotDetected); Campylobacter Not Detected (NotDetected); Clostridium Difficile A/B, PCR Not Detected (NotDetected); Cryptosporidium Not Detected (NotDetected); Cyclospora Cayetanesis Not Detected (NotDetected); Entamoeba histolytica Not Detected (NotDetected); Enteroaggregative E coli Not Detected (NotDetected); Enteropathogenic E coli Not Detected (NotDetected); Enterotoxigenic E coli Not Detected (NotDetected); Giardia lamblia Not Detected (NotDetected); Norovirus Not Detected (NotDetected); Plesimonas Shigalloides, PCR Not Detected (NotDetected); Rotavirus A Not Detected (NotDetected); Salmonella, PCR Not Detected (NotDetected); Sapovirus Not Detected (NotDetected); Shiga-like toxin E coli Not Detected (NotDetected); Shigella Enterovasive E coli Not Detected (NotDetected); Vibrio Cholerae Not Detected (NotDetected); Vibrio, PCR Not Detected (NotDetected); Yersinia Entercolitica, PCR Not Detected (NotDetected)
== END ==
PROVIDERS: PCP Nurse Practitioner Family; Visit Provider Nurse Practitioner Family
DX: K52.9 Noninfective gastroenteritis and colitis, unspecified (principal)
CPT/HCPCS: 87506

== ENCOUNTER 2021-08-29 09:42 | Day surgery (SDC) | payer MEDICARE, SELFPAY ==
[2021-08-29 10:03] VITALS: BP 128/78; PULSE 77; RESP 18; TEMP 36.2; O2SAT 90; BMI 31.1
[2021-08-29 10:16] VITALS: BP 135/83; PULSE 77; RESP 18; O2SAT 95
[2021-08-29 10:25] VITALS: BP 138/89; PULSE 72; RESP 18; O2SAT 97
[2021-08-29 10:38] VITALS: BP 130/85; PULSE 70; RESP 20; O2SAT 97
--- NOTE | 2021-08-29 10:40 | HMH.PMPROC ---
- Procedure Date: 08/29/21 Time: 10:40 Anesthesiologist:: Sanford Holguin MD Complications:: None Pre-procedure Diagnosis:: Sacroiliitis Post-procedure Diagnosis:: Same Indications for Procedure:: Patient is a pleasant 60-year-old white female who we are treating for bilateral hip pain. She is tender over both SI joints. She does have a positive Sharon's test bilaterally. She is positive Carlene test bilaterally. She is positive SI joint compression test bilaterally. We will plan on bilateral SI joint injections under fluoroscopy today to help with her pain symptoms. She did get a lumbar epidural steroid injection which did help some however she still has some bilateral hip pain residual. Procedure Details:: B/L SI joint injection under fluoroscopy Informed consent was obtained and the risks and benefits of the procedure was explained to the patient. The patient was taken to the procedure room and placed prone on the procedure table. The patient was prepped using ChloraPrep. The skin and subcutaneous tissues overlying the SI joints were anesthetized using lidocaine. I placed a 22-gauge needle first in the left SI joint and second in the right SI joint. Needle placement was confirmed with dye. After this we injected 5 mL bupivacaine 0.25% and Depo-Medrol 40 mg into each SI joint. Patient tolerated the procedure well with no complication. Plan and Disposition:: We will follow-up with her in 2 weeks. Will reevaluate symptoms at that time.
== END 2021-08-29 10:38 | disposition home or self-care (01) ==
LOC: SC.PAINP 09:43
PROVIDERS: PCP Nurse Practitioner Family; Visit Provider Anesthesiology
DX: M46.1 Sacroiliitis, not elsewhere classified (principal); E78.5 Hyperlipidemia, unspecified; I10 Essential (primary) hypertension; J44.9 Chronic obstructive pulmonary disease, unspecified; K21.9 Gastro-esophageal reflux disease without esophagitis; Z85.3 Personal history of malignant neoplasm of breast; Z88.8 Allergy status to other drugs, medicaments and biological substances; Z79.899 Other long term (current) drug therapy
CPT/HCPCS: 27096; G0260; J1040; Q9966

== ENCOUNTER → 2021-09-08 14:23 | Outpatient (CLI) | payer MEDICARE, SELFPAY ==
[2021-09-10 14:16] LABS: Deamidated Gliadin Abs, IgA 3 units (0-19); Deamidated Gliadin Abs, IgG 2 units (0-19); Tissue Transglutaminase IgA Ab <2 U/mL (0-3); Tissue Transglutaminase IgG Ab <2 U/mL (0-5)
[2021-09-10 16:14] LABS: Endomysial IgA Antibody Negative (Negative)
[2021-09-11 07:15] LABS: Reticulin IgA Antibody Negative titer (Neg:<1:2.5)
[2021-09-11 12:18] LABS: Saccharomyces cerevisiae, IgA <20.0 Units (0.0-24.9); Saccharomyces cerevisiae, IgG <20.0 Units (0.0-24.9)
== END ==
PROVIDERS: Visit Provider Nurse Practitioner Family
DX: R19.7 Diarrhea, unspecified (principal); R14.0 Abdominal distension (gaseous); R15.2 Fecal urgency; R15.9 Full incontinence of feces
CPT/HCPCS: 36415; 83516; 86255; 86256; 86671

== ENCOUNTER → 2021-09-18 10:11 | Outpatient (POV) | payer MEDICARE, SELFPAY ==
[2021-09-18 10:26] VITALS: BP 133/91; PULSE 86; RESP 18; O2SAT 97; BMI 32.0
--- NOTE | 2021-09-18 10:43 | P.CONS_ITS ---
[facility] Pain Management SOAP Note Subjective:: Patient is a 60-year-old white female who presents today for follow-up after bilateral SI joint injections. The patient got significant relief rating her pain a 2 out of 10. We did refer the patient to neurosurgery in [facility]. She was informed that her spine is pristine . The physician did advise the patient to seek an orthopedic referral for possible hip pain. X-rays were obtained by that provider. She does not have results of these x-rays. Patient is with a fixed income and is concerned about going to the orthopedic appointment due to pain improvement. She would like to review her x-rays, however. Today, she rates her pain a 2 out of 10. She does continue with home stretching. Review of Systems General: No recent weight changes, no fever, no sleep disturbances Respiratory: No cough, no shortness of air, no recurring pulmonary infections Cardiovascular/peripheral vascular: No chest pain, no palpitations, no edema, no shortness of breath Gastrointestinal: No new onset incontinence, normal bowel movements reported Genitourinary: No new onset incontinence Musculoskeletal: Intermittent low back pain Psychiatric: [Normal mood/affect] Neurological: [Denies weakness in extremities], [denies balance issues] Objective:: Physical exam General: Alert and oriented x3, no acute distress, pleasant and cooperative Lungs: Respirations even and unlabored, symmetrical chest expansion Eyes: PERRL Musculoskeletal: Flexion and extension of lumbar [spine] somewhat guarded secondary to pain, [antalgic gait noted] Neurological: Speech clear, no gross sensory deficit Assessment:: Bilateral sacroiliitis Plan:: We will obtain the x-rays from [facility] of bilateral hips. We will review these x-rays and contact the clinic if there are or any concerns. The patient would like to contact us in the future if she does continue to have pain. At this time, her pain is well controlled at 10. The injections worked very well for her. Patient has been instructed to contact the clinic with any concerns before the next appointment. Dr. Holguin has reviewed this note and agrees with this plan of care. This note was dictated using voice recognition software and make contain errors or omissions. [facility] History I have reviewed the patient's past medical history: Yes Medical History: Reports:: Arrhythmia, Asthma, Cancer (BREAST), Chronic Obstructive Pulmonary Disease (COPD), Gastroesophageal Reflux Disease(GERD), Hyperlipidemia, Hypertension, Lung Disease Denies:: Diabetes Mellitus Type 1, Diabetes Mellitus Type 2, Internal Pacemaker, MRSA, Seizures *Have you ever received a pneumonia vaccine?: Yes *Have you received a flu vaccine this season?: Yes Other Medical History: Reports: Chemotherapy, Radiation Therapy. Denies: Blood Transfusion Reaction Laterality Cases: Right: Lumpectomy, Mastectomy Other Surgeries: Yes: Cancer Surgery, Cholecystectomy, Colonoscopy, , Other. No: Pacemaker Amputation: No Fractures: No - *Social History Smoking Status: Former smoker Alcohol Intake: never Alcohol Intake Frequency:: holidays/special occasions only Substance Use Type: denies use *Occupational Status:: unemployed Housing: house Household Members: spouse *Travel in the last 8 weeks: None Family Hx:: Hypertension, Heart Attack, Diabetes, Stroke
== END ==
PROVIDERS: Visit Provider Clinical Nurse Specialist Family Health
DX: M46.1 Sacroiliitis, not elsewhere classified (principal)
CPT/HCPCS: 99212; G0463

== ENCOUNTER → 2022-06-22 09:30 | Outpatient (POV) | payer MEDICARE, SELFPAY ==
--- NOTE | 2022-06-22 09:50 | EXP.PAIN.SOA ---
[facility] Pain Management SOAP Note Subjective:: Patient is a pleasant 61-year-old female who presents today for follow-up. We are currently treating the patient for bilateral sacroiliitis. Today the patient rates her pain a 10 out of 10. She states the pain is in her low back that radiates into her bilateral lower extremities. Patient describes this as a Rall, gnawing sensation that also has heaviness in her legs. She states this pain is worse with increased activity. Patient has had injections in the past for the same issues that provided significant improvement of her symptoms. Patient states her last injection gave upwards of 80% improvement and she has not had to have injections since. Patient states she has had the same issues going on for roughly 4 years. Patient denies any new trauma or injury. Patient states the pain she is experiencing today has been slowly worsening over the last several months. Patient does use [id number] Tylenol and ibuprofen with minimal improvement of her symptoms as well as heat/ice and topical creams that do not seem to really help at all. Patient is not currently on any scheduled medications. Patient states she does do home exercises including squats and strengthening techniques for her SI joints specifically. She states that she has had some improvement with doing these injections however her pain has been worse and she has not been able to tolerate them as well here lately. She is interested in a repeat injection at today's visit. Her Clarence is [phone]. It has been reviewed and appropriate. Review of Systems: General: No recent weight changes, no fever, no sleep disturbances Respiratory: No cough, no shortness of air, no recurring pulmonary infections Cardiovascular/peripheral vascular: No chest pain, no palpitations, no edema, no shortness of breath Gastrointestinal: No new onset incontinence, normal bowel movements reported Genitourinary: No new onset incontinence Musculoskeletal: Low back pain, bilateral leg pain Psychiatric: [Normal mood/affect] Neurological: [Denies weakness in extremities], [denies balance issues] Objective:: Physical Exam: General: Alert and oriented x3, no acute distress, pleasant and cooperative Lungs: Respirations even and unlabored, symmetrical chest expansion Eyes: PERRL Musculoskeletal: Flexion and extension of lumbar [spine] somewhat guarded secondary to pain, [antalgic gait noted] extreme point tenderness along bilateral SI and bilateral greater trochanteric bursa's and positive bilateral Sharon's, Tanner's, Gaenslen's, compression and distraction exam Neurological: Speech clear, no gross sensory deficit Assessment:: Bilateral sacroiliitis Plan:: Patient is experiencing significant pain in her low back along her bilateral SI's that radiates into bilateral legs. In the past the patient has gotten significant improvement of her symptoms following bilateral SI injections. I have discussed with the patient about repeating these injections. Risk and benefits were discussed with the patient. She would like to proceed forward with these injections. I have also discussed with her that in the future we may look at doing bilateral greater trochanteric bursa injections due to her tenderness with palpation at today's visit. We will schedule the patient for bilateral SI injections. Patient has been instructed to contact the clinic with any concerns before the next appointment. Dr. Holguin has reviewed this note and agrees with this plan of care. This note was dictated using voice recognition software and make contain errors or omissions. PFSH PFSH Social History Smoking Status: Former smoker alcohol intake: never counseling provided: provider counseling substance use type: denies use current occupational status: retired Travel in the last 8 weeks: None household members: spouse housing: house current occupational exposures/hazards: No caffeine: Yes
[2022-06-22 09:51] VITALS: BP 150/97; PULSE 76; RESP 18; TEMP 35.9; O2SAT 92; BMI 32.0
== END ==
PROVIDERS: PCP Nurse Practitioner Family; Visit Provider Nurse Practitioner Family
DX: M46.1 Sacroiliitis, not elsewhere classified (principal)
CPT/HCPCS: 99212; G0463

== ENCOUNTER 2022-07-07 10:12 | Day surgery (SDC) | payer MEDICARE, SELFPAY ==
[2022-07-07 10:17] VITALS: BP 148/96; PULSE 70; RESP 16; TEMP 36.3; O2SAT 97; BMI 32.0
[2022-07-07 10:41] VITALS: BP 184/100; PULSE 78; RESP 18; O2SAT 97
[2022-07-07 10:42] VITALS: BP 184/100; PULSE 78; RESP 18; O2SAT 97
[2022-07-07 10:49] VITALS: BP 142/91; PULSE 70; RESP 20; O2SAT 95
--- NOTE | 2022-07-14 13:01 | EXP.PAIN.PRO ---
Procedure Date: 07/07/22 Time: 12:00 Anesthesiologist:: Tom Mann CRNA Complications:: None Pre-procedure Diagnosis:: Bilateral sacroiliitis Post-procedure Diagnosis:: Same. Indications for Procedure:: Patient is a pleasant 61-year-old female that comes to our injection clinic today for bilateral sacroiliac joint injections. She has extreme point tenderness over the bilateral SI joints on examination. She rates her pain 7/10. Patient describes difficulty transitioning from sitting to standing position. Procedure Details:: Procedure: Bilateral sacroiliac joint injections under fluoroscopy Informed consent was obtained and the risks and benefits of the procedure were explained to the patient.~ The patient was taken to the procedure room and noninvasive monitors were placed including a noninvasive blood pressure cuff and pulse oximeter.~ The patient was placed prone on the procedure table. Both hips were cleansed using Betadine as a cleansing solution. C-arm fluoroscopy was used to view the right sacroiliac joint.~ The skin and subcutaneous tissues were anesthetized using lidocaine 1.5% and a 25-gauge needle.~ After this, a 22-gauge spinal needle was inserted under fluoroscopic guidance into the inferior aspect of the right sacroiliac joint.~ Omnipaque dye was injected and good spread was seen throughout the joint.~ After this, approximately 5 mL of bupivacaine, 0.25% and Depo-Medrol, 40 mg was incrementally injected into the right sacroiliac joint. We then moved to the left sacroiliac joint.~ The skin and subcutaneous tissues were anesthetized using lidocaine 1.5% and a 25-gauge needle.~ After this, a 22-gauge spinal needle was inserted under fluoroscopic guidance into the inferior aspect of the left sacroiliac joint.~ Omnipaque dye was injected and good spread was seen throughout the joint. After this, approximately 5 mL of bupivacaine, 0.25% and Depo-Medrol, 40 mg was incrementally injected into the left sacroiliac joint.~ The patient tolerated the procedure well with no complications. The patient was observed in the Pain Clinic and then was discharged home neurologically intact. Plan and Disposition:: Patient was discharged without incident.
== END 2022-07-07 10:50 | disposition home or self-care (01) ==
LOC: SC.PAINP 10:13
PROVIDERS: PCP Nurse Practitioner Family; Visit Provider Nurse Anesthetist, Certified Registered
DX: M46.1 Sacroiliitis, not elsewhere classified (principal)
CPT/HCPCS: 27096; G0260; J1030

== ENCOUNTER → 2022-07-21 13:49 | Outpatient (POV) | payer MEDICARE, SELFPAY ==
[2022-07-21 14:27] VITALS: BP 125/80; PULSE 85; RESP 18; TEMP 36.6; O2SAT 99; BMI 32.0
--- NOTE | 2022-07-21 15:35 | EXP.PAIN.SOA ---
[facility] Pain Management SOAP Note Subjective:: Patient is a pleasant 61-year-old female who presents today for follow-up of bilateral SI injections on 07/07/2022. We are currently treating the patient for bilateral sacroiliitis. Today the patient states that she did had 60 to 70% improvement of her pain symptoms following this injection lasting 1 week. Today she rates her pain a 8 out of 10. Patient states the pain is all in her low back that radiates into her bilateral lower extremities. Patient describes this as a gnawing sensation with heaviness in her legs. Patient does state that the pain does seem to be worse at night and frequently has to get up and move around due to the pain. Patient has had multiple injections in the past that have provided upwards of 80% improvement. Patient did state that this has been going on for roughly 4 years. Patient denies any new trauma or injury. Patient does use [id number] Tylenol and ibuprofen as needed for her symptoms along with heat and ice and topicals with minimal improvement of her symptoms. Patient is not on any scheduled medications. Her Clarence is [phone]. It has been reviewed and appropriate. Review of Systems: General: No recent weight changes, no fever, no sleep disturbances Respiratory: No cough, no shortness of air, no recurring pulmonary infections Cardiovascular/peripheral vascular: No chest pain, no palpitations, no edema, no shortness of breath Gastrointestinal: No new onset incontinence, normal bowel movements reported Genitourinary: No new onset incontinence Musculoskeletal: Low back pain, bilateral leg pain Psychiatric: [Normal mood/affect] Neurological: [Denies weakness in extremities], [denies balance issues] Objective:: Physical Exam: General: Alert and oriented x3, no acute distress, pleasant and cooperative Lungs: Respirations even and unlabored, symmetrical chest expansion Eyes: PERRL Musculoskeletal: Flexion and extension of lumbar [spine] somewhat guarded secondary to pain, [antalgic gait noted]. Extreme point tenderness along bilateral SI's and positive bilateral Sharon's, Tanner's, Gaenslen's, compression and distraction exam Neurological: Speech clear, no gross sensory deficit Assessment:: Bilateral sacroiliitis Plan:: Patient continues to have significant pain in her low back that radiates into her bilateral lower extremities. Patient did have limited range of motion of her lumbar spine during today's visit as well as extreme point tenderness along bilateral SI's and positive bilateral Sharon's, Tanner's, Gaenslen's, compression and distraction exam. I have discussed with the patient regarding repeat bilateral SI injections. Risk and benefits were discussed with the patient. She would like to proceed forward with this plan of care. I will also add ropinirole 0.25 mg at night to her medication regimen and provide a 14-day supply. We will schedule the patient for bilateral SI's at today's visit. Patient has been instructed to contact the clinic with any concerns before the next appointment. Dr. Holguin has reviewed this note and agrees with this plan of care. This note was dictated using voice recognition software and make contain errors or omissions. PFSH [facility] Medical History (Updated 07/07/22 @ 10:27 by Tamar Ortiz RN) Anxiety Asthma delivery delivered COPD (chronic obstructive pulmonary disease) Depression IBS (irritable bowel syndrome) Surgical History (Updated 07/07/22 @ 10:27 by Tamra Ortiz RN) H/O partial mastectomy History of colonoscopy Hx of cholecystectomy Family History (Updated 07/07/22 @ 10:28 by Tamar Ortiz RN) Mother Brain tumor Other Blood disorder Social History (Updated 07/07/22 @ 10:28 by Tamar Ortiz RN) Smoking Status: Former smoker alcohol intake: never counseling provided: provider counseling substance use type: denies use current occupational status: disabled Travel in the last 8
== END | disposition home or self-care (01) ==
PROVIDERS: PCP Nurse Practitioner Family; Visit Provider Nurse Practitioner Family
DX: M46.1 Sacroiliitis, not elsewhere classified (principal)
CPT/HCPCS: 99212; G0463

== ENCOUNTER 2022-08-04 08:38 | Day surgery (SDC) | payer MEDICARE, SELFPAY ==
[2022-08-04 09:02] VITALS: BP 133/78; PULSE 68; RESP 18; TEMP 36.3; O2SAT 95; BMI 32.0
[2022-08-04 09:39] VITALS: BP 150/101; PULSE 74; RESP 18; O2SAT 97
[2022-08-04 09:41] VITALS: BP 152/101; PULSE 69; RESP 18; O2SAT 97
[2022-08-04 09:50] VITALS: BP 136/79; PULSE 63; RESP 18; O2SAT 95
--- NOTE | 2022-08-04 09:51 | P.PCN_ITS ---
Procedure Date: 08/04/22 Time: 09:35 Anesthesiologist:: Tom Mann CRNA Complications:: None Pre-procedure Diagnosis:: Bilateral sacroiliitis Post-procedure Diagnosis:: Same Indications for Procedure:: Very pleasant 61-year-old female comes our clinic today for bilateral sacroiliac joint injections. Patient has had these injections in the past with some degree of success. She rates her pain 7/10. Procedure Details:: Procedure: Bilateral sacroiliac joint injections under fluoroscopy Informed consent was obtained and the risks and benefits of the procedure were explained to the patient.~ The patient was taken to the procedure room and noninvasive monitors were placed including a noninvasive blood pressure cuff and pulse oximeter.~ The patient was placed prone on the procedure table. Both hips were cleansed using Betadine as a cleansing solution. C-arm fluoroscopy was used to view the right sacroiliac joint.~ The skin and subcutaneous tissues were anesthetized using lidocaine 1.5% and a 25-gauge needle.~ After this, a 22-gauge spinal needle was inserted under fluoroscopic guidance into the inferior aspect of the right sacroiliac joint.~ Omnipaque dye was injected and good spread was seen throughout the joint.~ After this, approximately 5 mL of bupivacaine, 0.25% and Depo-Medrol, 40 mg was incrementally injected into the right sacroiliac joint. We then moved to the left sacroiliac joint.~ The skin and subcutaneous tissues were anesthetized using lidocaine 1.5% and a 25-gauge needle.~ After this, a 22- gauge spinal needle was inserted under fluoroscopic guidance into the inferior aspect of the left sacroiliac joint.~ Omnipaque dye was injected and good spread was seen throughout the joint. After this, approximately 5 mL of bupivacaine, 0.25% and Depo-Medrol, 40 mg was incrementally injected into the left sacroiliac joint.~ The patient tolerated the procedure well with no complications. The patient was observed in the Pain Clinic and then was discharged home neurologically intact. Plan and Disposition:: Patient was discharged without incident.
== END 2022-08-04 09:50 | disposition home or self-care (01) ==
PROVIDERS: PCP Nurse Practitioner Family; Visit Provider Nurse Anesthetist, Certified Registered
DX: M46.1 Sacroiliitis, not elsewhere classified (principal)
CPT/HCPCS: 27096; G0260; J1030

== ENCOUNTER → 2022-08-17 13:53 | Outpatient (POV) | payer MEDICARE, SELFPAY ==
[2022-08-17 14:12] VITALS: BP 142/95; PULSE 81; RESP 18; O2SAT 97; BMI 32.0
--- NOTE | 2022-08-17 14:13 | EXP.PAIN.SOA ---
[facility] Pain Management SOAP Note Subjective:: Patient is a pleasant 61-year-old female who presents today for follow-up of bilateral SI injection on 08/04/2022. We are currently treating the patient for bilateral sacroiliitis. Today the patient rates her pain a 0 out of 10. Patient states she has had at least 90% improvement following this injection. She also states that she feels like the new prescription of ropinirole 0.25 mg at night has significantly improved her pain symptoms. Patient denies any side effects from this medication she is requesting a refill at today's visit. Previously patient stated that this is been going on for approximately 4 years and had had multiple injections in the past that did provide significant improvement of upwards of 80% however they did not provide long-term relief. Patient stated that her pain prevented her from being able to walk around or do activities of daily living such as doing the dishes or laundry. Patient states following this injection and prescription she has been able to increase her activity and states she continues to do at home exercising and stretching techniques that provide additional relief. Patient is not on any scheduled medications. Her Clarence is [phone]. It has been reviewed and appropriate. Review of Systems: General: No recent weight changes, no fever, no sleep disturbances Respiratory: No cough, no shortness of air, no recurring pulmonary infections Cardiovascular/peripheral vascular: No chest pain, no palpitations, no edema, no shortness of breath Gastrointestinal: No new onset incontinence, normal bowel movements reported Genitourinary: No new onset incontinence Musculoskeletal: Low back pain Psychiatric: [Normal mood/affect] Neurological: [Denies weakness in extremities], [denies balance issues] Objective:: Physical Exam: General: Alert and oriented x3, no acute distress, pleasant and cooperative Lungs: Respirations even and unlabored, symmetrical chest expansion Eyes: PERRL Musculoskeletal: Flexion and extension of lumbar [spine] somewhat guarded secondary to pain, [antalgic gait noted] Neurological: Speech clear, no gross sensory deficit Assessment:: Bilateral sacroiliitis Plan:: Patient has had significant improvement of her low back pain following her bilateral SI injections and prescription of ropinirole. At this time the patient does not require any additional injective therapy. I will refill her ropinirole 0.25 mg at bedtime and provide a 3-month supply of this medication. Patient will return to clinic in 1 month for follow-up and reevaluation of symptoms. Patient has been instructed to contact the clinic with any concerns before the next appointment. Dr. Holguin has reviewed this note and agrees with this plan of care. This note was dictated using voice recognition software and make contain errors or omissions. [facility] Medical History Anxiety Asthma delivery delivered COPD (chronic obstructive pulmonary disease) Depression IBS (irritable bowel syndrome) Surgical History H/O partial mastectomy History of colonoscopy Hx of cholecystectomy Family History Mother Brain tumor Other Blood disorder Social History Smoking Status: Former smoker alcohol intake: never counseling provided: provider counseling substance use type: denies use current occupational status: disabled Travel in the last 8 weeks: None household members: spouse housing: house current occupational exposures/hazards: No caffeine: Yes
== END | disposition home or self-care (01) ==
PROVIDERS: PCP Nurse Practitioner Family; Visit Provider Nurse Practitioner Family
DX: M46.1 Sacroiliitis, not elsewhere classified (principal)
CPT/HCPCS: 99212; G0463

== ENCOUNTER → 2022-10-08 13:00 | Outpatient (POV) | payer MEDICARE, SELFPAY ==
--- NOTE | 2022-10-08 13:14 | A.OFFVIS_ITS ---
[facility] Pain Management SOAP Note Subjective:: Patient is a pleasant 61-year-old female who presents today for follow-up and medication refill. We are currently treating the patient for bilateral sacroiliitis. Today the patient continues to states she has had significant improvement of her pain symptoms from her bilateral SI injection back in July. She rates her pain a 0 out of 10 today. Patient denies any new trauma or injury. Patient denies any change location or type of pain she experiences. Patient states she has been able to increase her activity and range of motion with decreased pain. She states everything is much easier to do now that she has less pain. Patient is currently being managed with ropinirole 0.25 mg at night. Patient states this medication has significantly improved her symptoms as well. She is requesting a refill at today's visit. Patient is not on any scheduled medications. Her Clarence is [phone]. Its been reviewed and appropriate. Review of Systems: General: No recent weight changes, no fever, no sleep disturbances Respiratory: No cough, no shortness of air, no recurring pulmonary infections Cardiovascular/peripheral vascular: No chest pain, no palpitations, no edema, no shortness of breath Gastrointestinal: No new onset incontinence, normal bowel movements reported Genitourinary: No new onset incontinence Musculoskeletal: Low back pain, bilateral leg pain Psychiatric: [Normal mood/affect] Neurological: [Denies weakness in extremities], [denies balance issues] Objective:: Physical Exam: General: Alert and oriented x3, no acute distress, pleasant and cooperative Lungs: Respirations even and unlabored, symmetrical chest expansion Eyes: PERRL Musculoskeletal: Flexion and extension of lumbar [spine] somewhat guarded secondary to pain, [antalgic gait noted] Neurological: Speech clear, no gross sensory deficit ORT score updated with minimal risk Assessment:: Low back pain, bilateral sacroiliitis Plan:: Patient continues to experience significant improvement in her pain symptoms following her bilateral SI injections in July. I will refill the patient's ropinirole 0.25 mg and provide a 3-month supply of this medication. Patient will return to clinic in 3 months for reevaluation of symptoms, medication refill and follow-up. Patient has been instructed to contact the clinic with any concerns before the next appointment. Dr. Holguin has reviewed this note and agrees with this plan of care. This note was dictated using voice recognition software and make contain errors or omissions. [facility] Disclaimer: The information contained in this section may have been updated after the patient was seen, as this information can be updated by other users. Medical History Anxiety Asthma delivery delivered COPD (chronic obstructive pulmonary disease) Depression IBS (irritable bowel syndrome) Surgical History H/O partial mastectomy History of colonoscopy Hx of cholecystectomy Family History Mother Brain tumor Other Blood disorder Social History Smoking Status: Former smoker alcohol intake: never counseling provided: provider counseling substance use type: denies use current occupational status: disabled Travel in the last 8 weeks: None household members: spouse housing: house current occupational exposures/hazards: No caffeine:
[2022-10-08 13:20] VITALS: BP 128/90; PULSE 75; RESP 20; BMI 32.0
== END | disposition home or self-care (01) ==
PROVIDERS: PCP Nurse Practitioner Family; Visit Provider Nurse Practitioner Family
DX: M46.1 Sacroiliitis, not elsewhere classified (principal); M54.50 Low back pain, unspecified
CPT/HCPCS: 99212; G0463

== ENCOUNTER → 2023-01-07 13:37 | Outpatient (POV) | payer MEDICARE, SELFPAY ==
[2023-01-07 13:47] VITALS: BP 136/81; PULSE 71; RESP 18; O2SAT 98
--- NOTE | 2023-01-07 13:47 | EXP.PAIN.SOA ---
[facility] Pain Management SOAP Note Subjective:: Patient is a pleasant 61-year-old female who presents today for follow-up and medication refill.? We are currently treating the patient for restless leg syndrome, and bilateral sacroiliitis.? She rates her pain a 1 out of 10 today.? Patient denies any new trauma or injury.? Patient denies any change location or type of pain she experiences.? She states she has been able to increase her activity and range of motion with decreased pain following the addition of the ropinirole. She does state that she has actually been able to get outside and work in the yard which is something she has not been able to do for years due to her pain. She is currently being managed with ropinirole 0.25 mg at night.? She denies any side effects from this medication. Patient is not on any scheduled medications.? Her Clarence is [phone].? Its been reviewed and appropriate. Review of Systems: General: No recent weight changes, no fever, no sleep disturbances Respiratory: No cough, no shortness of air, no recurring pulmonary infections Cardiovascular/peripheral vascular: No chest pain, no palpitations,? no edema, no shortness of breath Gastrointestinal: No new onset incontinence, normal bowel movements reported Genitourinary: No new onset incontinence Musculoskeletal: Low back pain, bilateral leg pain Psychiatric: [Normal mood/affect] Neurological: [Denies weakness in extremities], [denies balance issues] Objective:: Physical Exam: General: Alert and oriented x3, no acute distress, pleasant and cooperative Lungs: Respirations even and unlabored, symmetrical chest expansion Eyes: PERRL Musculoskeletal: Flexion and extension of lumbar [spine] somewhat guarded secondary to pain, [antalgic gait noted] Neurological: Speech clear, no gross sensory deficit Assessment:: Bilateral sacroiliitis, restless leg syndrome Plan:: Patient is doing well with her current medication regimen. I will refill her ropinirole 0.25 mg at bedtime and provide a 6-month supply of this medication. Patient will return to clinic in 6 months for reevaluation of symptoms, medication refill and follow-up. Patient has been instructed to contact the clinic with any concerns before the next appointment. Dr. Holguin has reviewed this note and agrees with this plan of care. This note was dictated using voice recognition software and make contain errors or omissions. [facility] Disclaimer: The information contained in this section may have been updated after the patient was seen, as this information can be updated by other users. Medical History Anxiety Asthma delivery delivered COPD (chronic obstructive pulmonary disease) Depression IBS (irritable bowel syndrome) Surgical History H/O partial mastectomy History of colonoscopy Hx of cholecystectomy Family History Mother Brain tumor Other Blood disorder Social History Smoking Status: Former smoker alcohol intake: never counseling provided: provider counseling substance use type: denies use current occupational status: retired Travel in the last 8 weeks: None household members: spouse housing: house current occupational exposures/hazards: No caffeine: Yes
== END | disposition home or self-care (01) ==
PROVIDERS: PCP Nurse Practitioner; Visit Provider Nurse Practitioner Family
DX: M46.1 Sacroiliitis, not elsewhere classified (principal); G25.81 Restless legs syndrome
CPT/HCPCS: 99212; G0463

== ENCOUNTER → 2023-07-29 12:42 | Outpatient (POV) | payer MEDICARE, SELFPAY ==
--- OUTSIDE RECORDS SUMMARY | 2023-07-29 12:45 | XMS_ITS | Patient Health Record ---
Author Name Unknown Organization [facility] Address [address] [place] [address] Care Team Providers Care Bookmobile Librarian Name Role Phone Paul Mclaughlin Primary Care Provider McRo Cueto Unavailable [phone] Paul Mclaughlin Unavailable Unavailable ALLERGIES Allergen (clinical drug ingredient) Drug/Non Drug Allergy documented on EMR Reaction Allergy Type Onset Date Status metoprolol metoprolol dizziness Drug Allergy Activ e REASON FOR REFERRAL No Information MEDICATIONS Medication SIG (Take, Route, Frequency, Duration) Notes Start Date End Date Status busPIRone 5 mg 1 tab(s) orally 2 ti mes a day for 90 days Active FiberCon 625 mg 2 tabs orally daily Active multivitamin Multiple Vitamins 1 tab(s) orally once a day for 30 day(s) Active ProAir HFA 90 mcg/inh 2 puff(s) inhaled 4 times a day prn for 90 days Active Ibu 600 mg 1 tab(s) orally thre e times a day prn for 30 day(s) 10/13/2019 Active Oxygen 2 Liters As directed Daily at night Active Bisoprolol Fumarate 5MG 1 tab(s) orally once a day for 90 days Active loratadine 10 mg 1 tab(s) orally once a da
[2023-07-29 13:29] VITALS: BP 138/70; PULSE 72; RESP 18; O2SAT 93; BMI 32.9
--- NOTE | 2023-07-29 13:33 | EXP.PAIN.SOA ---
[facility] Pain Management SOAP Note Subjective:: Patient is a pleasant 62-year-old female who presents today for medication refill and 6-month follow-up. We are currently treating the patient for restless leg syndrome and bilateral sacroiliitis. Today she rates her pain a 2 out of 10. Patient denies any new trauma or injury. She states since our last visit she continues to do well on the restless leg medication. She does state that she went on a trip and forgot her pills and immediately regretted it. She did state that she notices significant relief when taking this medication and denies any side effects. Patient states she will occasionally have pain in her low back and hips however that she has been going to the chiropractor the last 3 months and it really did make a difference with her low back. She states she does still have some leg pain and that it typically is worse with certain movements or increased ambulation. She states she continues to do at home exercising and stretching to increase her ability to lift her legs up and down and that stairs have become a little bit more manageable. She is currently on ropinirole 0.25 mg at bedtime. Her Clarence has been reviewed and is appropriate. Review of Systems: General: No recent weight changes, no fever, no sleep disturbances Respiratory: No cough, no shortness of air, no recurring pulmonary infections Cardiovascular/peripheral vascular: No chest pain, no palpitations, no edema, no shortness of breath Gastrointestinal: No new onset incontinence, normal bowel movements reported Genitourinary: No new onset incontinence Musculoskeletal: Leg pain Psychiatric: [Normal mood/affect] Neurological: [Denies weakness in extremities], [denies balance issues] Objective:: Physical Exam: General: Alert and oriented x3, no acute distress, pleasant and cooperative Lungs: Respirations even and unlabored, symmetrical chest expansion Eyes: PERRL Musculoskeletal: Flexion and extension of lumbar [spine] somewhat guarded secondary to pain, [antalgic gait noted] Neurological: Speech clear, no gross sensory deficit Assessment:: Restless leg syndrome, bilateral sacroiliitis Plan:: I will refill the patient's ropinirole 0.25 mg at bedtime and provide a 6-month supply of this medication. I will also order the patient a compounded cream. Patient will return to clinic in 6 months for reevaluation of symptoms and medication refill. Patient has been instructed to contact the clinic with any concerns before the next appointment. Dr. Holguin has reviewed this note and agrees with this plan of care. This note was dictated using voice recognition software and make contain errors or omissions. [facility] Disclaimer: The information contained in this section may have been updated after the patient was seen, as this information can be updated by other users. Medical History Anxiety Asthma delivery delivered COPD (chronic obstructive pulmonary disease) Depression IBS (irritable bowel syndrome) Surgical History H/O partial mastectomy History of colonoscopy Hx of cholecystectomy Family History Mother Brain tumor Other Blood disorder Social History Smoking Status: Former smoker alcohol intake: never counseling provided: provider counseling substance use type: denies use current occupational status: retired Travel in the last 8 weeks: None household members: spouse housing: house current occupational exposures/hazards: No caffeine: Yes
== END | disposition home or self-care (01) ==
PROVIDERS: PCP Nurse Practitioner; Visit Provider Nurse Practitioner Family
DX: G25.81 Restless legs syndrome (principal); M46.1 Sacroiliitis, not elsewhere classified
CPT/HCPCS: 99212; G0463

== ENCOUNTER 2024-01-27 12:57 | Outpatient (POV) | payer MEDICARE, SELFPAY ==
--- NOTE | 2024-01-27 13:14 | EXP.PAIN.SOA ---
[facility] Pain Management SOAP Note Subjective:: Patient is a pleasant 63-year-old female who presents today for 6-month follow-up and medication refill. Today she rates her pain a 2 out of 10 patient denies any new trauma or injury. She states that she did recently start a stretching flex class about 4 weeks ago and she has felt more sensations into her legs almost as if something is crawling on her. Patient states she ended up getting some [id number] medicine called restful legs and it is helping. Patient is still taking her ropinirole 0.25 mg at bedtime and states that it is still helping she denies any side effects from this medication. Her Clarence has been reviewed and is appropriate. Review of Systems: General: No recent weight changes, no fever, no sleep disturbances Respiratory: No cough, no shortness of air, no recurring pulmonary infections Cardiovascular/peripheral vascular: No chest pain, no palpitations, no edema, no shortness of breath Gastrointestinal: No new onset incontinence, normal bowel movements reported Genitourinary: No new onset incontinence Musculoskeletal: Low back pain Psychiatric: [Normal mood/affect] Neurological: [Denies weakness in extremities], [denies balance issues] Objective:: Physical Exam: General: Alert and oriented x3, no acute distress, pleasant and cooperative Lungs: Respirations even and unlabored, symmetrical chest expansion Eyes: PERRL Musculoskeletal: Flexion and extension of lumbar [spine] within normal limits Neurological: Speech clear, no gross sensory deficit Assessment:: Restless leg syndrome, bilateral sacroiliitis Plan:: Patient is doing well with her current medication regimen. I will refill her ropinirole 0.25 mg at bedtime and provide a 6-month supply of this medication. Patient is not currently using her compounded cream because she is doing ketamine infusions to help with her depression. Patient will return to clinic in 6 months for reevaluation of symptoms and plan of care. Patient has been instructed to contact the clinic with any concerns before the next appointment. Dr. Holguin has reviewed this note and agrees with this plan of care. This note was dictated using voice recognition software and make contain errors or omissions. [facility] Disclaimer: The information contained in this section may have been updated after the patient was seen, as this information can be updated by other users. Medical History Asthma COPD (chronic obstructive pulmonary disease) Anxiety Depression IBS (irritable bowel syndrome) delivery delivered Surgical History History of colonoscopy Hx of cholecystectomy H/O partial mastectomy Family History Mother Brain tumor Other Blood disorder Social History Smoking Status: Former smoker alcohol intake: never counseling provided: provider counseling substance use type: denies use current occupational status: retired Travel in the last 8 weeks: None household members: spouse housing: house current occupational exposures/hazards: No caffeine: Yes
[2024-01-27 13:15] VITALS: BP 159/95; PULSE 75; RESP 16; O2SAT 96; BMI 32.0
== END 2024-01-27 23:59 | disposition home or self-care (01) ==
PROVIDERS: PCP Nurse Practitioner; Visit Provider Nurse Practitioner Family
DX: G25.81 Restless legs syndrome (principal); M46.1 Sacroiliitis, not elsewhere classified
CPT/HCPCS: 99212; G0463

== ENCOUNTER 2024-04-18 11:45 | Outpatient (CLI) | payer MEDICARE, SELFPAY | END 2024-04-18 23:59 | disposition home or self-care (01) | LOC: RT 11:46 | PROVIDERS: PCP Family Medicine; Visit Provider Physician Assistant | DX: R00.2 Palpitations (principal) | CPT/HCPCS: 93225; 93227 ==

== ENCOUNTER 2024-04-20 11:39 | Outpatient (CLI) | payer MEDICARE, SELFPAY | END 2024-04-20 23:59 | disposition home or self-care (01) | LOC: RT 11:43 | PROVIDERS: PCP Family Medicine; Visit Provider Physician Assistant | DX: R00.2 Palpitations (principal) | CPT/HCPCS: 93270 ==

== ENCOUNTER 2024-04-25 14:57 | Outpatient (CLI) | payer MEDICARE, SELFPAY ==
--- NOTE | 2024-04-25 14:57 | CA_ITS ---
APPROVED REPORT EXAM: Comprehensive 2D, Doppler, and color-flow Echocardiogram Legal Support Assistant: Cydney Sandra CRT Ht: 5 ft 2 in Wt: 82lbs BSA: 1.31 BP: 166/122 mmHg Indications: COPD, Palpitations, Hypertension/HDD, home o2 at night, hx TIA, ex smoker 2D Dimensions Left Atrium 3.55 cm LVEF (Martinez's) 50.50 % LVOT 1.75 cm (M/F) 1.5-2.5 LV Volume 67.10 mL LA Volume 19.30 mL LA Volume Index 14.70 mL/m2 (M/F) 16-34 EF AP4 39.60 % EF AP2 60.0 % EF BP 50.5 % GL Strain -10.0 % M-Mode Dimensions RVDd 2.34 cm (0.9-2.6) LVDd 4.56 cm (3.5-5.7) Ao Diam 3.57 cm (2.0-3.7) LVDs 2.77 cm (3.5-5.7) IVSd 1.83 cm (0.6-1.1) PWd 0.68 cm (0.6-1.1) EF (Teich) 69.80% FS 39.30% EDV (Teich) 95.40 mL TAPSE 1.79 (<1.7) ESV (Teich) 28.80 mL LV Diastology MED E' 8.9 (>= 7 cm/sec) MED A' 10.60 cm/s LAT E' 5.9 (>= 10 cm/sec) LAT A' 11.00 cm/s Aortic Valve AoV Peak Jamie. 132.0 (50-130 cm/s) AO Peak GR. 6.90 mmHg Tricuspid Valve TR P. Velocity 217.00 cm/s RAP Estimate 10.00 mmHg RVSP 28.80 mmHg Left Ventricle The left ventricle is normal size. The left ventricular systolic function is normal. The left ventricular ejection fraction is within the normal range. There is increased LV wall thickness. There is normal LV segmental wall motion. Diastolic function is indeterminate. LVEF is 55%. Right Ventricle The right ventricle is normal size. The right ventricular systolic function is normal. Atria The left atrium size is normal. The right atrium size is normal. There is no Doppler evidence of interatrial shunt. Aortic Valve The aortic valve is mildly thickened. There is no aortic valvular stenosis. Trace aortic regurgitation. Mitral Valve The mitral valve leaflets are mildly thickened. No evidence of mitral valve stenosis. Mild mitral regurgitation. Tricuspid Valve The tricuspid valve leaflets are thin and pliable. Trace tricuspid regurgitation. There is insufficient TR jet to estimate RVSP. Pulmonic Valve The pulmonary valve is normal in structure. Trace pulmonic regurgitation. Great Vessels The aortic root is normal in size. The ascending aorta is not well-visualized. IVC is normal in size and collapses >50% with inspiration. Pericardium There is no pericardial effusion. Other Information Study Quality: Technically Difficult Conclusion Technically difficult study due to poor acoustic windows. Normal biventricular systolic function. Mild MR. Electronically signed by : Alesha Johnson MD 04/26/2024 00:28:39
== END 2024-04-25 23:59 | disposition home or self-care (01) ==
LOC: RT 14:57
PROVIDERS: PCP Family Medicine; Visit Provider Physician Assistant
DX: R00.2 Palpitations (principal); I34.0 Nonrheumatic mitral (valve) insufficiency
CPT/HCPCS: 93306

== ENCOUNTER 2024-05-19 15:22 | Outpatient (CLI) | payer MEDICARE, SELFPAY ==
--- NOTE | 2024-05-19 15:40 | MR_ITS ---
FINAL REPORT CLINICAL HISTORY: TIA, left sided weakness, aphasia. episode of slurring words and double vision. dizziness and nausea. hx breast cancer COMPARISON: None FINDINGS: Multiplanar MR imaging of the brain was performed without and with contrast. There is minimal abnormal signal in the deep white matter bilaterally, nonspecific but in this age group possibly secondary to ischemic microvascular change. There is no evidence of intracranial hemorrhage or mass. No abnormal extra-axial fluid collection is seen. The ventricular size is within normal limits. There is no evidence of shift of the midline structures. The posterior fossa and brainstem have an unremarkable appearance. No area of abnormal restricted diffusion is identified. Post contrast-enhancement, there is diffuse nodular enhancement along the inner surface of the calvarium, that may represent dural or calvarial enhancement, or both. Normal major vessel vascular flow voids are noted. IMPRESSION: Diffuse nodular enhancement along the inner surface of the calvarium, that may represent dural or calvarial enhancement, or both. In a patient with a clinical history of breast cancer this is worrisome for metastatic disease. Small foci of increased signal on T2 weighted images in the deep white matter bilaterally, nonspecific but in this age group likely secondary to ischemic/gliotic microvascular change. Reviewed, Interpreted and Dictated by Adi Rainey MD Transcribed by Chrissy Najera Authenticated and [facility]
[2024-05-19 16:23] LABS: Blood Urea Nitrogen 12 mg/dl (7-17); Estimated Glomerular Filt Rate 124 ml/min (>60); GFR (African American) 150 ML/MIN (>60)
[2024-05-19] MEDS: SODIUM CHLORIDE 0.9% 10ML SYR (RAD ONLY) 10 ML IV (16:32)
[2024-05-19] MEDS: GADOTERIDOL INJ 20ML SYRINGE 16 ML IV (16:32)
== END 2024-05-19 23:59 | disposition home or self-care (01) ==
LOC: RAD 15:23
PROVIDERS: PCP Family Medicine; Visit Provider Physician Assistant
DX: R47.01 Aphasia (principal); R53.1 Weakness; Z86.73 Personal history of transient ischemic attack (TIA), and cerebral infarction without residual deficits
CPT/HCPCS: 36415; 70553; 82565; 84520; A9576

== ENCOUNTER 2024-08-03 12:58 | Outpatient (POV) | payer MEDICARE, SELFPAY ==
--- NOTE | 2024-08-03 13:13 | A.OFFVIS_ITS ---
[facility] Disclaimer: The information contained in this section may have been updated after the patient was seen, as this information can be updated by other users. Medical History Brain lesion Hx of breast cancer Palpitations TIA (transient ischemic attack) Left-sided weakness Aphasia Asthma COPD (chronic obstructive pulmonary disease) Anxiety Depression IBS (irritable bowel syndrome) delivery delivered X2 Surgical History History of colonoscopy Hx of cholecystectomy H/O partial mastectomy RIGHT Family History Mother Brain tumor Other Blood disorder Social History Smoking Status: Former smoker alcohol intake: never counseling provided: provider counseling substance use type: denies use current occupational status: other Travel in the last 8 weeks: None household members: spouse housing: house current occupational exposures/hazards: No caffeine: Yes PM Subjective & Objective Subjective Subjective:: Patient is a pleasant 63-year-old female who presents today for 6-month follow- up. Today she rates her pain a 10 out of 10. She denies any new trauma or injury. She does state that she has been having increased low back hip and upper thigh pain. She states it was severe enough during the summer she ended up coming into the ER. She states they were trying to see whether or not if there was something specific going on to cause her worsening pain. Patient is still taking her ropinirole 0.25 mg at bedtime and states that it is still helping she denies any side effects from this medication. Her Clarence has been reviewed and is appropriate. Review of Systems: General: No recent weight changes, no fever, no sleep disturbances Respiratory: No cough, no shortness of air, no recurring pulmonary infections Cardiovascular/peripheral vascular: No chest pain, no palpitations, no edema, no shortness of breath Gastrointestinal: No new onset incontinence, normal bowel movements reported Genitourinary: No new onset incontinence Musculoskeletal: Low back pain, hip pain, upper thigh pain Psychiatric: [Normal mood/affect] Neurological: [Denies weakness in extremities], [denies balance issues] Pain at rest (0-10 scale): 10 Objective Objective:: Physical Exam: General: Alert and oriented x3, no acute distress, pleasant and cooperative Lungs: Respirations even and unlabored, symmetrical chest expansion Eyes: PERRL Musculoskeletal: Flexion and extension of lumbar [spine] somewhat guarded secondary to pain, [antalgic gait noted] point tenderness along bilateral SIs with positive bilateral Sharon's, Tnaner's, Gaenslen's, compression and distraction exam Neurological: Speech clear, no gross sensory deficit Has patient had previous pain injection?: No Conservative treatment options previously tried: Home exercise plan Length of treatment: Longer than 12 weeks Meds Home Medications and Allergies Home Medications ?Medication ?Instructions ?Recorded ?Confirmed ?Type fluticasone fur. 100 mcg-umeclid 1 inh inhalation DAILY allergies 04/05/19 05/31/24 History 62.5 mcg-vilant 25 mcg inhalat.powder (Trelegy Ellipta) ropinirole 0.25 mg tablet 0.25 mg PO HS RLS #30 tabs 01/27/24 05/31/24 Rx aspirin 81 mg tablet,delayed 81 mg PO DAILY 04/18/24 05/31/24 History release (Adult Aspirin Regimen) azelastine 205.5 mcg (0.15 %) 205.5 mcg intranasal BID PRN 04/18/24 05/31/24 History nasal spray allergies bisoprolol fumarate 5 mg tablet 5 mg PO DAILY 04/18/24 05/31/24 History simvastatin 20 mg tablet 20 mg PO DAILY 04/18/24 05/31/24 History New Prescriptions to Start Prescriptions: Allergies Allergy/AdvReac Type Severity Reaction Status Date / Time metoprolol AdvReac Intermediate Dizziness Verified 05/31/24 13:10 Assessment and Plan *Assessment and plan (1) Degenerative disc disease, lumbar: Status: Chronic Category: Medical Code(s): M51.36 - Other intervertebral disc degeneration, lumbar region (2) Bilateral sacroiliitis: Status: Acute Category: Medical Code(s): M46.1 - Sacroiliitis, not elsewhere classified Plan Patient is experiencing worsening pain in her low back and bilateral hips with point tenderness along her bilateral SIs and a positive bilateral Sharon's, Tanner's, Gaenslen's, compression and distraction exam. I did discuss with the patient that she may benefit from repeat SI injections. Patient did have these in the past around July 2022. At that time they did provide 90% relief and have overall lasted really well along with the ropinirole medication. Patient did discuss if we could go up on her current dosage. We will send in a 6-month supply of ropinirole 0.5 mg at bedtime. Patient was counseled that I will give her 1 month follow-up to see if she is still having worsening pain that we can see about getting her in for evaluation for possible injections but that if the pain does improve with the increased dosage that she can call and cancel this. Patient acknowledges understanding agrees with plan of care. Patient has been instructed to contact the clinic with any concerns before the next appointment. Dr. Holguin has reviewed this note and agrees with this plan of care. This note was dictated using voice recognition software and make contain errors or omissions. All injections are used with Lidocaine or Bupivacaine and Depo Medrol.
[2024-08-03 13:43] VITALS: BP 162/93; PULSE 58; RESP 16; O2SAT 97; BMI 32.0
== END 2024-08-03 23:59 | disposition home or self-care (01) ==
PROVIDERS: PCP Family Medicine; Visit Provider Nurse Practitioner Family
DX: M46.1 Sacroiliitis, not elsewhere classified; M51.360 Other intervertebral disc degeneration, lumbar region with discogenic back pain only
CPT/HCPCS: 99212; G0463

== ENCOUNTER 2024-08-23 09:45 | Outpatient (CLI) | payer MEDICARE, SELFPAY ==
[2024-08-23 10:36] LABS: Creatine Kinase 64 U/L (30-135)
[2024-08-23 11:04] LABS: Erythrocyte Sedimentation Rate 11 mm/hr (0-30)
[2024-08-25 10:10] LABS: Anti-Centromere B Antibodies <0.2 AI (0.0-0.9); Anti-DNA (DS) Ab Qn <1 IU/mL (0-9); Anti-Jo-1 <0.2 AI (0.0-0.9); Anti-Smith Antibody <0.2 AI (0.0-0.9); Antichromatin Antibodies <0.2 AI (0.0-0.9); Antiscleroderma-70 Antibodies <0.2 AI (0.0-0.9); RNP Antibodies 1.8 AI (0.0-0.9); Sjogren's Anti-SS-A <0.2 AI (0.0-0.9); Sjogren's Anti-SS-B <0.2 AI (0.0-0.9)
[2024-08-25 16:11] LABS: Aldolase 7.1 U/L (3.3-10.3)
[2024-09-05 16:02] LABS: 1,25 Dihydroxy Vitamin D 42 pg/mL (.); 1,25-Dihydroxy, Vitamin D-2 <10 pg/mL (.); 1,25-Dihydroxy, Vitamin D-3 42 pg/mL (.)
== END 2024-08-23 23:59 | disposition home or self-care (01) ==
LOC: LAB 09:47
PROVIDERS: PCP Family Medicine; Visit Provider Specialist
DX: R41.0 Disorientation, unspecified (principal); R55 Syncope and collapse; D64.9 Anemia, unspecified
CPT/HCPCS: 36415; 82085; 82550; 82652; 84443; 85651; 86225; 86235

== ENCOUNTER 2024-12-07 15:10 | Outpatient (CLI) | payer MEDICARE, SELFPAY ==
--- NOTE | 2024-12-07 15:27 | MR_ITS ---
FINAL REPORT CLINICAL HISTORY: encephalopathy BLURRY , DOUBLE VISION PRESSUE IN HEAD UNABLE TO CONTROL BODY MOVEMENTS HX OF BREAST CANCER 2002 16 ML PROHANCE COMPARISON: 05/19/2024 FINDINGS: Multiplanar MR imaging of the brain was performed without and with contrast. T2 and FLAIR images demonstrate a few tiny, scattered foci of abnormal signal in the deep white matter. There are no foci of cortical signal abnormality. There is no evidence of intracranial hemorrhage or mass. The ventricular size is within normal limits. There is no evidence of shift of the midline structures. The posterior fossa and brainstem have an unremarkable appearance. No area of abnormal restricted diffusion is identified. Normal major vessel vascular flow voids are noted. Postcontrast imaging again demonstrates extensive nodular enhancement along the undersurface of the calvarium which appears similar to the prior exam. IMPRESSION: Persistent nodular enhancement along the undersurface of the calvarium which appears unchanged from the prior exam. This may represent dural and/or calvarial enhancement. In a patient with a clinical history of breast cancer, this is worrisome for metastatic disease. Reviewed, Interpreted and Dictated by Adi Rainey MD Transcribed by Cindy Salinas Authenticated and [facility]
[2024-12-07 16:01] LABS: Blood Urea Nitrogen 9 mg/dl (7-17); Estimated Glomerular Filt Rate 124 ml/min (>60); GFR (African American) 150 ML/MIN (>60)
[2024-12-07] MEDS: GADOTERIDOL INJ 20ML SYRINGE 16 ML IV (16:16)
[2024-12-07] MEDS: SODIUM CHLORIDE 0.9% 10ML SYR (RAD ONLY) 10 ML IV (16:16)
== END 2024-12-07 23:59 | disposition home or self-care (01) ==
PROVIDERS: PCP Family Medicine; Visit Provider Specialist
DX: G93.40 Encephalopathy, unspecified (principal); R90.89 Other abnormal findings on diagnostic imaging of central nervous system; M62.89 Other specified disorders of muscle; Z85.3 Personal history of malignant neoplasm of breast
CPT/HCPCS: 36415; 70553; 82565; 84520; A9576

== ENCOUNTER 2025-01-29 13:06 | Outpatient (POV) | payer MEDICARE, SELFPAY ==
[2025-01-29 13:26] VITALS: BP 140/83; PULSE 84; RESP 16; O2SAT 95; BMI 32.0
--- NOTE | 2025-01-29 13:41 | EXP.PAIN.SOA ---
[facility] Disclaimer: The information contained in this section may have been updated after the patient was seen, as this information can be updated by other users. Medical History Fibromyalgia Pre-syncope Confusion History of emphysema History of vertigo Restless leg syndrome Brain lesion Hx of breast cancer Palpitations TIA (transient ischemic attack) Left-sided weakness Aphasia Asthma COPD (chronic obstructive pulmonary disease) Anxiety Depression IBS (irritable bowel syndrome) delivery delivered X2 Surgical History History of section History of colonoscopy Hx of cholecystectomy H/O partial mastectomy RIGHT Family History Mother Brain tumor Other Blood disorder Cancer Coronary artery disease Heart attack Hypertension Social History Smoking Status: Former smoker alcohol intake: never counseling provided: provider counseling substance use type: denies use current occupational status: other Travel in the last 8 weeks?: None household members: spouse housing: house current occupational exposures/hazards: No caffeine: Yes PM Subjective & Objective Subjective Subjective:: Patient is a pleasant 64-year-old female who presents today for worsening low back pain and hip pain. She rates her pain today an 8 out of 10. Patient denies any new falls or injuries. Patient does state that she is just having worsening pain that is interfering with her ability perform activities of daily living such as cooking and cleaning. Patient does state it is worse with prolonged positioning or going from a seated to standing movement. Patient does state that she is continue to trial oral medications, heat and ice, topicals, at home stretching exercise for longer than 12 weeks. Patient does believe that her previous injections have worn off. Patient is currently managed with ropinirole 0.5 mg at bedtime. She denies any side effects but is requesting it to be sent to [facility] pharmacy. Patient does also make mention today that she is interested in the possibility of the spinal cord stimulator trial. Patient does have questions regarding this device. Her Clarence has been reviewed and is appropriate. Review of Systems: General: No recent weight changes, no fever, no sleep disturbances Respiratory: No cough, no shortness of air, no recurring pulmonary infections Cardiovascular/peripheral vascular: No chest pain, no palpitations, no edema, no shortness of breath Gastrointestinal: No new onset incontinence, normal bowel movements reported Genitourinary: No new onset incontinence Musculoskeletal: Low back pain, bilateral hip pain Psychiatric: [Normal mood/affect] Neurological: [Denies weakness in extremities], [denies balance issues] Pain at rest (0-10 scale): 8 Objective Objective:: Physical Exam: General: Alert and oriented x3, no acute distress, pleasant and cooperative Lungs: Respirations even and unlabored, symmetrical chest expansion Eyes: PERRL Musculoskeletal: Flexion and extension of lumbar [spine] somewhat guarded secondary to pain, [antalgic gait noted] point tenderness along bilateral SIs with positive bilateral Sharon's, Tanner's, Gaenslen's, compression and distraction exam, point tenderness along bilateral greater trochanteric bursa's Neurological: Speech clear, no gross sensory deficit Has patient had previous pain injection?: No Conservative treatment options previously tried: Home exercise plan Length of treatment: Longer than 12 weeks Meds Home Medications and Allergies Home Medications ?Medication ?Instructions ?Recorded ?Confirmed ?Type fluticasone fur. 100 mcg-umeclid 1 inh inhalation DAILY allergies 04/05/19 01/29/25 History 62.5 mcg-vilant 25 mcg inhalat.powder (Trelegy Ellipta) azelastine 205.5 mcg (0.15 %) 205.5 mcg intranasal BID PRN 04/18/24 01/29/25 History nasal spray allergies bisoprolol fumarate 5 mg tablet 5 mg PO DAILY 04/18/24 01/29/25 History simvastatin 20 mg tablet 20 mg PO DAILY 04/18/24 01/29/25 History albuterol sulfate 90 mcg/actuation 1 mcg inhalation DIRECTED PRN 08/09/24 01/29/25 History aerosol inhaler Asthma rivaroxaban 20 mg tablet (Xarelto) 20 mg PO DAILY #30 tabs 10/11/24 01/29/25 Rx duloxetine 60 mg capsule,delayed 60 mg PO ONCE 11/28/24 01/29/25 History release lisinopril 20 mg tablet 20 mg PO DAILY 11/28/24 01/29/25 History ropinirole 0.5 mg tablet 0.5 mg PO HS #90 tabs 01/29/25 Rx New Prescriptions to Start Prescriptions: ropiniStephanie Jaramillo Allergies Allergy/AdvReac Type Severity Reaction Status Date / Time metoprolol AdvReac Intermediate Dizziness Verified 11/28/24 13:45 Assessment and Plan *Assessment and plan (1) Bilateral sacroiliitis: Status: Acute Category: Medical Code(s): M46.1 - Sacroiliitis, not elsewhere classified (2) Greater trochanteric bursitis of both hips: Status: Acute Category: Medical Code(s): M70.61 - Trochanteric bursitis, right hip; M70.62 - Trochanteric bursitis, left hip Plan Patient is experiencing worsening pain along the low back and bilateral hips. They did have limited range of motion of the lumbar spine along with point tenderness along bilateral SI joints and a positive bilateral Sharon's, Tanner's, Gaenslen's, compression and distraction exam. I did discuss with the patient that I do believe they would benefit from bilateral SI injections. Risk and benefits were discussed with the patient and they would like to proceed forward with this option. Patient has tried and failed conservative therapy including continued at home stretching exercise for longer than 12 weeks. Patient does have a longstanding history of chronic sacroiliitis with her last injections in July 2022 that did provide 80% relief. Patient has not had any additional injections in this joint space since. Patient does state that she felt like it did decrease down the pain for at least 3 months in the past. This will be a therapeutic injection with less than 1 mL solution to be injected. Patient will be scheduled for bilateral SI injections under fluoroscopy. I did also review over her questions regarding the spinal cord stimulator trial. Risk and benefits and educational handouts were given. Patient would like to proceed forward with this plan of care. I will send her for a psychological evaluation and if she is deemed an appropriate candidate we will proceed forward with the trial at a later date. We will also go ahead and proceed forward with x-ray imaging of her lumbar spine and bilateral SI joints with the plan to go ahead and order an MRI without contrast of her lumbar spine as it has been years since she has had any updated imaging we will plan on sending her to neurosurgery for consult in the future. We will continue to follow-up regarding this information. Patient will be sent in a 90-day supply of the ropinirole with 1 refill to [facility]. Patient has been instructed to contact the clinic with any concerns before the next appointment. Dr. Holguin has reviewed this note and agrees with this plan of care. This note was dictated using voice recognition software and make contain errors or omissions. All injections are used with Lidocaine or Bupivacaine and dexamethasone.
--- NOTE | 2025-01-29 13:45 | XR_ITS ---
FINAL REPORT CLINICAL HISTORY: Low back pain COMPARISON: None FINDINGS: AP and lateral views of the lumbar spine were obtained. There is no prior exam for comparison. There is no acute fracture. Mild levoscoliosis is noted. Vertebral body height is preserved. Degenerative disc disease is present, most pronounced at the L2-3 level. No acute paraspinal abnormality. IMPRESSION: Degenerative change as described, with no acute osseous abnormality of the lumbar spine. Reviewed, Interpreted and Dictated by Sonali Armenta MD Transcribed by Chrissy Najera Authenticated and [facility]
--- NOTE | 2025-01-29 13:45 | XR_ITS ---
FINAL REPORT TECHNIQUE: Bilateral oblique and a single AP view of the sacroiliac joints CLINICAL HISTORY: History sacroiliitis COMPARISON: None FINDINGS: SACROILIAC JOINTS: AP and bilateral oblique views of the sacroiliac joints were obtained. There is no prior exam for comparison. There is no acute fracture or other acute osseous abnormality. The SI joints are symmetric bilaterally. No evidence of bony ankylosis or erosions is seen. No acute soft tissue abnormality is present. IMPRESSION: Unremarkable images of the sacroiliac joints. Reviewed, Interpreted and Dictated by Sonali Armenta MD Transcribed by Chrissy Najera Authenticated and [facility]
== END 2025-01-29 23:59 | disposition home or self-care (01) ==
PROVIDERS: PCP Family Medicine; Visit Provider Nurse Practitioner Family
DX: M46.1 Sacroiliitis, not elsewhere classified (principal); M70.61 Trochanteric bursitis, right hip; M70.62 Trochanteric bursitis, left hip; Z87.891 Personal history of nicotine dependence; Z73.89 Other problems related to life management difficulty; Z79.01 Long term (current) use of anticoagulants
CPT/HCPCS: 72100; 72202; 99212; G0463

== ENCOUNTER 2025-02-13 14:16 | Outpatient (CLI) | payer MEDICARE, SELFPAY ==
--- NOTE | 2025-02-13 14:19 | MR_ITS ---
FINAL REPORT TECHNIQUE: Multiplanar MR without contrast CLINICAL HISTORY: LBP with bilateral hip and leg pain nki FINDINGS: Sagittal images show normal vertebral height. There is mild levoscoliosis without subluxation. Marrow signal pattern is unremarkable. T12-L1: Unremarkable. L1-2: Mild annular disc bulge. L2-3: Mild annular disc bulge. L3-4: Minimal annular disc bulge. Mild facet arthropathy. L4-5: Unremarkable L5-S1: Mild annular disc bulge without canal stenosis IMPRESSION: Mild degenerative changes without canal stenosis or nerve root compression. Reviewed, Interpreted and Dictated by Ele Caballero MD Transcribed by Aby Brownlee Authenticated and [facility][1]
== END 2025-02-13 23:59 | disposition home or self-care (01) ==
LOC: RAD 14:17
PROVIDERS: PCP Family Medicine; Visit Provider Nurse Practitioner Family
DX: M47.896 Other spondylosis, lumbar region; M47.897 Other spondylosis, lumbosacral region
CPT/HCPCS: 72148

== ENCOUNTER 2025-02-20 11:49 | Day surgery (SDC) | payer MEDICARE, SELFPAY ==
[2025-02-20 11:51] VITALS: BP 148/94; PULSE 92; RESP 16; TEMP 36.6; O2SAT 95; BMI 32.0
[2025-02-20] MEDS: BUPIVACAINE 0.25% 10ML INJ 25 MG IJ (11:59)
[2025-02-20] MEDS: DEXAMETHASONE 10MG/ML 1ML VIAL 10 MG (11:59)
[2025-02-20 12:00] VITALS: BP 146/91; PULSE 114; RESP 18; O2SAT 98
[2025-02-20] MEDS: LIDOCAINE 1% 5ML PF VIAL 5 ML (12:00)
[2025-02-20 12:01] VITALS: BP 146/91; PULSE 114; RESP 18; O2SAT 98
[2025-02-20 12:04] VITALS: BP 141/94; PULSE 98; RESP 16; O2SAT 98
--- NOTE | 2025-02-20 12:06 | P.PCN_ITS ---
Procedure Date: 02/20/25 Time: 11:40 Anesthesiologist:: Tom Mann CRNA Complications:: None Pre-procedure Diagnosis:: Bilateral sacroiliitis Post-procedure Diagnosis:: Same Indications for Procedure:: Patient is a very pleasant 64-year-old female who comes our clinic today for bilateral sacroiliac joint injection cortisone local anesthetic. Patient describes low lumbar back pain off the midline bilaterally. Bilateral posterior hip pain. Difficulty transitioning from sitting to standing. Difficulty with ambulation. She rates her pain 7/10. Procedure Details:: Procedure: Bilateral sacroiliac joint injections under fluoroscopy Informed consent was obtained and the risks and benefits of the procedure were explained to the patient.~ The patient was taken to the procedure room and noninvasive monitors were placed including a noninvasive blood pressure cuff and pulse oximeter.~ The patient was placed prone on the procedure table. Both hips were cleansed using Betadine as a cleansing solution. C-arm fluoroscopy was used to view the right sacroiliac joint.~ The skin and subcutaneous tissues were anesthetized using lidocaine 1.5% and a 25-gauge needle.~ After this, a 22-gauge spinal needle was inserted under fluoroscopic guidance into the inferior aspect of the right sacroiliac joint.~ Omnipaque dye was injected and good spread was seen throughout the joint.~ After this, approximately 5 mL of bupivacaine, 0.25% and Depo-Medrol, 40 mg was incrementally injected into the right sacroiliac joint. We then moved to the left sacroiliac joint.~ The skin and subcutaneous tissues were anesthetized using lidocaine 1.5% and a 25-gauge needle.~ After this, a 22- gauge spinal needle was inserted under fluoroscopic guidance into the inferior aspect of the left sacroiliac joint.~ Omnipaque dye was injected and good spread was seen throughout the joint. After this, approximately 5 mL of bupivacaine, 0.25% and Depo-Medrol, 40 mg was incrementally injected into the left sacroiliac joint.~ The patient tolerated the procedure well with no complications. The patient was observed in the Pain Clinic and then was discharged home neurologically intact. Plan and Disposition:: Patient was discharged out incident.
== END 2025-02-20 12:04 | disposition home or self-care (01) ==
PROVIDERS: PCP Family Medicine; Visit Provider Nurse Anesthetist, Certified Registered
DX: M46.1 Sacroiliitis, not elsewhere classified (principal)
CPT/HCPCS: G0260; J1100

== ENCOUNTER 2025-03-12 13:17 | Outpatient (POV) | payer MEDICARE, SELFPAY ==
--- OUTSIDE RECORDS SUMMARY | 2024-12-30 17:30 | XMS_ITS ---
Author Organization [facility] Address [address] [place] [address] Care Team Providers Care Shot Grinder Operator Name Role Phone Paul Mclaughlin Primary Care Provider [phone], [place] Unavailable [phone] Paul Mclaughlin Unavailable Unavailable Migration, Provider Unavailable Unavailable Allergies Allergen (clinical drug ingredient) Drug/Non Drug Allergy documented on EMR Reaction Allergy Type Onset Date Status metoprolol Metoprolol dizziness Drug Allergy Activ e [facility] Conversion Encounter Medications Medication SIG (Take, Route, Frequency, Duration) Notes Start Date End Date Status Bisoprolol Fumarate 5 MG 1 tab(s) orally once a day for 90 days Active Singulair 10 MG 1 tab(s) orally once a day for 90 days Active busPIRone HCl 5 MG 1 tab(s) orally 2 times a day for 90 days Active Omeprazole 20 MG 1 cap(s) orally once a day for 90 days Active PROAIR HFA 90 MCG/INH 2 PUFF(S) INHALED 4 TIMES A DAY PRN for 90 DAYS *Please review for potential replacement for e-prescription and drug interaction check* Active Escitalopram Oxalate 10 MG 1 tab(s) orally once a day for 30 day(s) Active ASTELIN 2 SPRAY TWICE A DAY PRN *Please review for potential replacement for e-prescription and drug interaction check* Active Loratadine 10 MG 1 tab(s) orally once a day Active OXYGEN 2 LITERS DIRECTED DAILY at night *Plea se review for potential replacement for e-prescription and drug interaction check* Active IBU 600 MG 1 tab(s) orally three times a day prn for 30 day(s) 10/13/2019 Active Colestipol HCl 1 GM 1 tab(s) every monring and 2 tabs at bedtime orally 2 times a day Active Albuterol Sulfate (2.5 MG/3ML) 0.083% 3 mL by nebulizer every 6 hours prn Active Align 4 MG 1 CAP(S) ORALLY ONCE A DAY for 28 DAY(S) *Please review and pick correct strength-formulatio n from [employer] options. If intended option is not shown, discontinue and re-order from Quick Search* Active Simvastatin 20 MG 1 tab(s) orally once a day (at bedtime) for 90 days Active Lisinopril 20 MG 1 tab(s) orally once a day for 90 days 06/20/2021 Active FiberCon 625 MG 2 tabs orally daily Active Trelegy Ellipta 100 MCG-62.5 MCG-25 MCG/INH 1 PUFF(S) INHALED ONCE A DAY for 90 DAYS *Please review and pick correct strength-formulatio n from [employer] options. If intended option is not shown, discontinue and re-order from Quick Search* Active Multivitamin - 1 tab(s) orally once a day for 30 day(s) Active Encounters Encounter Location Date Provider Diagnosis [facility] [place] [address] [facility] [address] [place], [place] [address] 12/30/2024 Provider Migration Chronic obstructive pulmonary disease, unspecified COPD type J44.9 Assessments Encounter Date Diagnosis (ICD Code) Assessment Notes Treatment Notes Treatment Clinical Notes Section Notes 12/30/2024 Chronic obstructive pulmonary disease, unspecified COPD type (ICD-10 - J44.9) Plan Of Treatment Medication Medication Name Sig Start Date Stop Date Notes busPIRone HCl 5 MG 1 tab(s) orally 2 times a day for 90 days Escitalopram Oxalate 10 MG 1 tab(s) orally once a day for 30 day(s) Simvastatin 20 MG 1 tab(s) orally once a day (at bedtime) for 90 days Lisinopril 20 MG 1 tab(s) orally once a day for 90 days 06/20/2021 Trelegy Ellipta 100 MCG-62.5 MCG-25 MCG/INH 1 PUFF(S) INHALED ONCE A DAY for 90 DAYS *Please review and pick correct strength-formulation from [employer] options. If intended option is not shown, discontinue and re-order from Quick Search* Progress Notes * Kaykay WALTER ADOB:01/1961 (64 yo F)Acc No.[id number]:12/30/2024 Patient: Kaykay MEDINA Provider: Eben valdivia Migration :1960 A ge:64 Y S ex:Female Date:12/30/2024 Address:[facility] [address], [place] [facility], [id number] Pcp:Paul Mclaughlin Subjective: * Chief Complaints: * [facility] . [facility] * Medical History: * Medications: T aking Multivitamin - Tablet 1 tab(s) orally once a day , Taking FiberCon 625 MG Tablet 2 tabs orally daily , Taking Align 4 MG CAPSULE 1 CAP(S) ORALLY ONCE A DAY , Notes to Pharmacist: *Please review and pick correct strength-formulation from [employer] options. If intended option is not shown, discontinue and re-order from Quick Search*, Taking Colestipol HCl 1 GM Tablet 1 tab(s) every monring and 2 tabs at bedtime orally 2 times a day , Taking Albuterol Sulfate (2.5 MG/3ML) 0.083% Nebulization Solution 3 mL by nebulizer every 6 hours prn , Taking ASTELIN 2 SPRAY TWICE A DAY PRN , Notes to Pharmacist: *Please review for potential replacement for e-prescription and drug interaction check*, Taking Loratadine 10 MG Tablet 1 tab(s) orally once a day , Taking OXYGEN 2 LITERS NASAL CANNULA DIRECTED DAILY , Notes to Pharmacist: at night *Please review for potential replacement for e-prescription and drug interaction check*, Taking IBU 600 MG Tablet 1 tab(s) orally three times a day prn , Taking PROAIR HFA 90 MCG/INH AEROSOL 2 PUFF(S) INHALED 4 TIMES A DAY PRN , Notes to Pharmacist: *Please review for potential replacement for e-prescription and drug interaction check*, Taking Singulair 10 MG Tablet 1 tab(s) orally once a day , Taking Omeprazole 20 MG Capsule Delayed Release 1 cap(s) orally once a day , Taking Bisoprolol Fumarate 5 MG Tablet 1 tab(s) orally once a day * Allergies: M etoprolol: dizziness. Objective: * Vitals: Assessment: * Assessment: 1. C hronic obstructive pulmonary disease, unspecified COPD type - J44.9 Plan: * Treatment: 2. O thers Refill Simvastatin Tablet, 20 MG, 1 tab(s), orally, once a day (at bedtime), 90 days, 90, Refills 2; R efill Lisinopril Tablet, 20 MG, 1 tab(s), orally, once a day, 90 days, 90 Tablet, Refills 2; Start Escitalopram Oxalate Tablet, 10 MG, 1 tab(s), orally, once a day, 30 day(s), 30, Refills 6; S tart busPIRone HCl Tablet, 5 MG, 1 tab(s), orally, 2 times a day, 90 days, 180 Tablet, Refills 4. * * Electronic signature of Prov ider Migration on 03/12/2025 at 01:24 PM EDT Sign off status: Pending * Provider: Eben valdivia Migration Date: 0 12/30/2024 Generated for Jerzy gresham/Mango/Raf on: 0 03/12/2025 01:24 PM EDT
--- OUTSIDE RECORDS SUMMARY | 2025-03-12 13:24 | XMS_ITS | Clinical Summary ---
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 Name Role Phone JordyRita Primary Care Provider [phone] Allergies Active Allergy Reactions Criticality Noted Date Comments Metoprolol Unknown - Patient st ates they do not know rxn details,Dizziness,Other - please document in the comment field High 03/20/2024 Pt does not know Medications albuterol 108 (90 Base) MCG/ACT inhaler INHALE 1 TO 2 PUFFS BY MOUTH EVERY 4 TO 6 HOURS 7 Active albuterol (Proventil) (2.5 MG/3ML) 0.083% nebulizer solution 3 mL by nebulizer every 6 hours prn 7 Active azelastine (Astelin) 0.1 % nasal spray 4 Active bisoprolol (Zebeta) 5 MG tablet Take 1 tablet (5 mg) by mouth daily. Active fluticasone (Flonase) 50 MCG/ACT nasal spray Administer 1 spray into affected nostril(s) Daily. 9 Active Fluticasone-Ume clidin-Vilant (Trelegy Ellipta) 100-62.5-25 MCG/ACT aerosol powder 1 (one) time each day at the same time. 9 Active lisinopril 20 MG tablet Take 1 tablet (20 mg) by mouth daily. Active ondansetron (Zofran) 4 MG tablet Take 1 tablet (4 mg) by mouth every 8 hours. Active Probiotic Product (align) 4 MG capsule 1 (one) time each day at the same time. Active rOPINIRole (Requip) 0.5 MG tablet TAKE 1 TABLET BY MOUTH EVERY NIGHT 1 TO 3 HOURS BEFORE BEDTIME Active simvastatin (Zocor) 20 MG tablet Take 1 tablet (20 mg) by mouth every evening. 4 Active sulfamethoxazol e-trimethoprim (Bactrim DS) 800-160 MG tablet Take 1 tablet by mouth 2 (two) times a day. 30 tablet 1 4 Active Additional Information Patient not taking.Reported on 11/20/2024 predniSONE (Deltasone) 5 MG tablet Take 1 tablet (5 mg) by mouth 1 (one) time each day. Take 3 tabs (15mg) daily for 14 days, then take 2 tabs (10 mg) daily for 14 days, then take 1 tab (5mg) daily for 14 days 77 tablet Active Additional Information Patient not taking.Reported on 11/20/[address] capsule Take 1 capsule (30 mg) by mouth daily. Active Cymbalta [address] capsule Take 1 capsule (60 mg) by mouth daily. Active Xarelto 20 MG tablet Take 1 tablet (20 mg) by mouth 1 (one) time each day with dinner. Active Resolved Problems Problem Noted Date Diagnosed Date Resolved Date A-fib 10/28/2024 11/20/2024 Aphasia 10/09/2024 10/09/2024 Bilateral sacroiliitis 10/09/202410/09 Brain lesion 10/09/2024 10/09/2024 Confusion 10/09/2024 10/09/2024 Contusion of shoulder, left 10/09/2024 10/09/2024 Degeneration of intervertebr al disc of lumbar region 10/09/2024 10/09/2024 Depression with anxiety 10/09/202409/27 Episodic weakness 10/09/2024 10/09/2024 Essential hypertension 10/09/202410/09 History of emphysema 10/09/2024 025 Incontinence of feces 10/09/20242024 Irritable bowel syndrome with diarrhea 10/09/2024 10/09/2024 Overview (10/09/2024): 2020 Left-sided weakness 10/09/2024 10/09/19 25 Lumbago with sciatica, left side 10/09/2024 10/09/2024 Lumbar radiculopathy 10/09/2024 025 Other chronic pain 10/09/2024 Palpitations 10/09/2024 10/09/2024 Paresthesia 10/09/2024 10/09/2024 PVC's (premature ventricular contractions) 10/09/2024 10/09/2024 Restless legs syndrome (RLS) 10/09/2024 10/09/2024 Overview (10/09/2024): Unsure-same time I started ropinerole Rotator cuff syndrome of left shoulder 10/09/2024 10/09/2024 TIA (transient ischemic attack) 10/09/2024 10/09/2024 Vitamin D deficiency 10/09/2024 025 Epileptic seizure 03/20/2024 11/20/2024 Anxiety 10/29/2022 10/09/2024 Mixed hyperlipidemia 10/29/2022 025 Muscle pain 07/05/2018 10/09/2024 Allergic rhinitis 12/21/2017 10/09/2024 Weight gain 12/21/2017 10/09/2024 Acid reflux 04/19/2017 10/09/2024 Asthma-COPD overlap syndrome 04/19/2017 10/09/2024 Encounters Date Type Department Care Team Description 02/02/2025 [facility] [address] [place] [address] Mckayla Diaz MD Weakness generalized (Primary Dx); Myotonia 01/01/2025 2:15 PM EDT [facility] [address] [facility] [address] [place] [address] Encounter for nonprocreative genetic counseling 01/01/2025 Travel 12/29/2024 Travel 12/26/2024 12:00 PM EDT [facility] [address] [facility] [address] [place] [address] Kamila Riley Encounter for nonprocreative genetic counseling 12/19/2024 Travel from Last 3 Months Immunizations Immunization Administration Dates Next Due Influenza, Unspecified 08/23/2017 Influenza, injectable, MDCK, preservative free, quadrivalent 07/07/2022 Influenza, injectable, quadrivalent 08/31/2018,1 10/12/2016 Influenza, injectable, quadr ivalent, preservative free 07/15/2021,06/02/2020,08/18/2019 Influenza, seasonal, injectable 08/27/2016 [employer] COVID-19 Vaccine (Blue Cap) 18+ 01/01/20 21 Pneumococcal 20-familia Conj Vaccine 07/22/2022 Pneumococcal Conjugate PCV 7 08/27/2016 Rsv, Bivalent, Protein Subun it Rsvpref, Diluent Reconstituted, 0.5mL, PF 09/30/2023 Zoster, Recombinant 12/30/2023,10/28/2023 Family History Medical History Relation Name Comments Asthma Brother Harvey Obesity Brother Harvey Rheumatologic disease Brother Harvey Coronary artery disease Father Don Heart disease Father Don Autoimmune disease Father's Sister Yoly Diabetes Maternal Grandmother Richelle Asthma Mother Estelle Cancer Paternal Grandfather Glad COPD Sister Martha Depression Sister Martha Obesity Sister Martha Hepatitis, C Virus Son Teo Relation Name Status Comments Brother Harvey Father Don Father's Sister Yoly Maternal Grandmother Richelle Mother Estelle Paternal Grandfather Glad Sister Martha Son Teo Social History Tobacco Use Types Packs/Day Years Used Date Smoking Tobacco: Former Cigarettes 1.5 84 0 09/27/1974 - 09/27/2018 Smokeless Tobacco: Never Tobacco Cessation:Counseling Given: Not Answered Alcohol Use Standard Drinks/Week Comments Defer 0 (1 standard drink = 0.6 oz pur e alcohol) PHQ-2 Answer Date Recorded Patient Health Questionnaire-2 Score 0 11/20/2024 PHQ-9 Answer Date Recorded Patient Health Questionnaire-9 Score 0 09/11/2024 Comments Unknown Sex and Gender Information Value Date Recorded Sex Assigned at Female 03/20/2024 3:24 PM EDT Legal Sex Female 7:51 PM EDT Gender Identity Female 12/19/2024 4:01 PM EDT Sexual Orientation Not on file Last Filed Vital Signs Vital Sign Reading Time Taken Comments Blood Pressure 125/84 11/20/2024 1:34 PM EST Pulse 82 11/20/2024 1:34 PM EST Temperature 36.9 C (98.4 F) 11/20/2024 1:34 PM EST Respiratory Rate 16 09/11/2024 1:45 PM EST Oxygen Saturation 94% 11/20/2024 1:34 PM EST Inhaled Oxygen Concentration - - Weight 84.3 kg (185 lb 13.6 oz) 11/20/2024 1:34 PM EST Height 157.5 cm (5' 2 ) 11/20/2024 1:34 PM EST Body Mass Index 33.99 11/20/2024 1:34 PM EST Plan of Treatment Upcoming Encounters Date Type Department Care Team (Late st Contact Info) Description 06/25/2025 1:00 PM EDT Consult [facility] [address], [address] [place] [address] Darrel Cruz MD [address] [place] [address] 11/20/2025 2:00 PM EST Office Visit [facility] [address] [place] [address] Betty Arthur MD [address] [place] [address] Health Maintenance Due Date Last Done Comments [facility]-Bone Density Scan 1960 [facility]-Hepatitis C Screening 1960 [facility]-Medicare Annual Wellness (AWV) 1960 [facility]-Infant/Child/Adol SDOH Screenings 1960 [facility]- SDOH Screenings 11/29/1977 [facility]-Adult SDOH Screenings 11/29/1977 [facility]-DTaP,Tdap,and Td Vaccines (1 - Tdap) 11/29/1978 CT Colonography 11/29/2004 Colonoscopy 11/29/2004 FIT-DNA 11/29/2004 FIT 11/29/2004 FOBT 11/29/2004 Sigmoidoscopy 11/29/2004 [facility]-Colorectal Cancer Screening 11/29/2004 [facility]-Lung Cancer Screening 11/29/2009 [facility]-Pap Smear 04/05/2010 04/05/2007 [facility]-Cervical Cancer Screening 04/05/2012 [facility]-HPV/Cotest 04/05/2012 04/05/2007 [id number] Vaccine ( season) 2025 08/28/2024, 07/09/2023, 04/16/2022, Additional history exists [facility]-Influenza Vaccine (Season Ended) 2025 07/07/2022, 07/15/2021, 06/02/2020, Additional history exists [facility]-Depression Screening 11/20/2025 11/20/2024, 08/27 [facility]-Pneumococcal Vaccine: 50+ Years Completed 07/22/2022, 08/27/2016 [facility]-RSV Vaccine: 60+ Years or Completed 09/30/2023 [facility]-Zoster Vaccines Completed 12/30/2023, [facility]-Obesity Intervention Completed 025, 11/02/2024, 10/09/2024, Additional history exists HPV Vaccines Aged Out No longer eligi ble based on patient's age to complete this topic [facility]-HIB Vaccines Aged Out No longer e ligible based on patient's age to complete this topic [facility]-Hepatitis A Vaccines Aged Out No longer eligible based on patient's age to complete this topic [facility]-IPV Vaccines Aged Out No longer e ligible based on patient's age to complete this topic [facility]-Rotavirus Vaccines Aged Out No lo nger eligible based on patient's age to complete this topic Procedures Procedure Name Priority Date/Time Associated Diagnosis Comments CYTO DATA CONVERSION Routine 04/05/2007 12:00 AM EDT from Last 3 Months or Most Recently Relevant to Health Maintenance Results * Cytology (04/05/2007 12:00 AM EDT) Breast fine needle aspirate specimen (specimen) 04/05/2007 04/06/2007 7:48 AM EDT Narrative [facility] - 04/06/2007 10:27 AM EDT [facility] MR #: [id number] [facility] [place] [address] 1960 (Age: 46) FW Collect Date: 04/05/2007 00:00 Receipt Date: 04/06/2007 07:48 Page 1 DEPARTMENT OF PATHOLOGY AND LABORATORY MEDICINE CYTOPATHOLOGY REPORT Email: [email or web address] ATTENDING MD/Practitioner: Isis Mitchell MD Service: [facility] Location: [facility] OTHER MD(S): Nazario Pires MD Reported: 04/06/2007 10:27 Collected: 04/05/2007 00:00 DIAGNOSIS FNA, RIGHT BREAST, UPPER OUTER QUADRANT: PREDOMINANTLY BLAND FIBROFATTY STROMA WITH FOCAL DEGENERATIVE CHANGE. NO DUCTAL EPITHELIUM PRESENT. NO CARCINOMA IDENTIFIED (SEE COMMENT). COMMENT The aspirate material consists solely of stromal fragments, with some showing degenerative change with focal inflammation. While focal areas could represent focal fat necrosis, much of the fat is unremarkable. The cytologic findings may not explain a mass or mass like lesion. Stromal elements including fat may be seen in cases of non-proliferative fibrocystic change, lipomatous replacement, or when the lesion has not been sampled. Several studies in the literature have found a higher false negative rate when the aspirate smears do not contain epithelial groups or are hypocellular. Recommend clinical/mammographic correlation, as FNA is one part of the triple test. Electronically Signed Out Hallie Tuttle MD PROCEDURES/ADDENDA GROSS DESCRIPTION: Needle rinse fluid. CLINICAL INFORMATION: CLINICAL DIAGNOSIS Status post right partial mastectomy 02/2002 for breast cancer; now with 1 month history of vague tender firm area in right breast, upper outer quadrant. FNA performed by staff pathologist: Dr. Tuttle Patient identification and site of aspirate were verified. Patient tolerated 4 needle passes well without injected anesthesia or known complications. This service has been rendered in part by a resident. A pathologist has personally reviewed the slides/tissue and has rendered and is responsible for the diagnosis that appears on the report. SPECIMEN DESCRIPTION: A: FNA RIGHT BREAST UPPER OUTER QUADRANT DIFF-QUIK x 4, PAP STAIN x 4, THIN PREP PROCESS CELLULAR ENHANCEMENT ICD: 611.72 LUMP OR MASS IN BREAST V10.3 BREAST, PERSONAL HISTORY OF MALIGNANT NEOPLASM F: A; 17506 ASP INTER, [address] FNA PATHO SNOMED CODES: A; [id number] A resident has participated in this service. A pathologist has performed and is responsible for the reported pathologic evaluation. us Historical Provider MD LAB PATHOLOGY ORDERABLES Final Result [facility] from Last 3 Months or Most Recently Relevant to Health Maintenance Insurance [facility] MEDIC[facility] Care Teams Cellophane Casting Machine Repairer Relationship Specialty Start Date End Date Rita Spence DO [address] [place], [place] [id number] [place] [address] PCP - General 11/20/24
--- OUTSIDE RECORDS SUMMARY | 2025-03-12 13:24 | XMS_ITS | Encounter Summary ---
Author Organization Healthcare Address [address] [place] [address] Care Team Providers Care Airline Stewardess Name Role Phone Rita Spence Primary Care Provider [phone] Encounter Details Date Type Department Care Team (Late Contact Info) Description 12/01/2024 [facility] [address] [place] [address] Mckayla Diaz MD [address] [facility] [address] [place] [address] Social History Tobacco Use Types Packs/Day Years Used Date Smoking Tobacco: Former Cigarettes 1.5 84 0 09/27/1974 - 09/27/2018 Smokeless Tobacco: Never Alcohol Use Standard Drinks/Week Comments Defer 0 [...] PM EDT Sexual Orientation Not on file documented as of this encounter Plan of Treatment Upcoming Encounters Date Type Department Care Team (Late Contact Info) Description 06/25/2025 1:00 PM EDT [facility] [address] [facility], [address] [place] [address] Darrel Cruz MD [address] [facility] [address] [place] [address] 11/20/2025 2:00 PM EST Office Visit [place] [facility] [address] [place] [address] Betty Arthur MD [address] [place] [address] documented as of this encounter Visit Diagnoses Not on filedocumented in this encounter Additional Health Concerns Assessment Noted Time PHQ-9 Depression Total Score: 0 09/11/20 1:56 PM EST A fall risk assessment has been complete d for the patient 11/20/2024 1:38 PM EST A Body Mass Index follow-up plan has been documented for the patient 11/20/2024 2:08 PM EST documented as of this encounter Care Teams Airline Stewardess Relationship Specialty Start Date End Date Rita Spence DO [address] [place] [address] [place] [address] PCP - General 11/20/24 documented as of this encounter
--- OUTSIDE RECORDS SUMMARY | 2025-03-12 13:24 | XMS_ITS | Patient Health Record ---
Author Organization [facility] Address [address] [place] [address] Care Team Providers Care Fulling Mill Operator Name Role Phone Paul Mclaughlin Primary Care Provider [phone] [place], Ro Unavailable [phone] Paul Mclaughlin Unavailable Unavailable Migration, Provider Unavailable Unavailable Allergies Allergen (clinical drug ingredient) Drug/Non Drug Allergy documented on EMR Reaction Allergy Type Onset Date Status metoprolol Metoprolol dizziness Drug Allergy Activ e Reason For Referral No Information Medications Medication SIG (Take, Route, Frequency, Duration) Notes Start Date End Date Status Lisinopril 20 MG 1 tab(s) orally once a day for 90 days 06/20/2021 Active Colestipol HCl 1 GM 1 tab(s) every monring and 2 tabs at bedtime orally 2 times a day Active Escitalopram Oxalate 10 MG 1 tab(s) orally once a day for 30 day(s) Active Albuterol Sulfate (2.5 MG/3ML) 0.083% 3 mL by nebulizer every 6 hours prn Active FiberCon 625 MG 2 tabs orally daily Active Bisoprolol Fumarate 5 MG 1 tab(s) orally once a day for 90 days Active Align 4 MG 1 CAP(S) ORALLY ONCE A DAY for 28 DAY(S) *Please review and pick correct strength-formulatio n from Medispan options. If intended option is not shown, discontinue and re-order from Quick Search* Active Trelegy Ellipta 100 MCG-62.5 MCG-25 MCG/INH 1 PUFF(S) INHALED ONCE A DAY for 90 DAYS *Please review and pick correct strength-formulatio n from Medispan options. If intended option is not shown, discontinue and re-order from Quick Search* Active Simvastatin 20 MG 1 tab(s) orally once a day (at bedtime) for 90 days Active ASTELIN 2 SPRAY TWICE A DAY PRN *Please review for potential replacement for e-prescription and drug interaction check* Active Loratadine 10 MG 1 tab(s) orally once a day Active OXYGEN 2 LITERS DIRECTED DAILY at night *Plea se review for potential replacement for e-prescription and drug interaction check* Active Singulair 10 MG 1 tab(s) orally once a day for 90 days Active busPIRone HCl 5 MG 1 tab(s) orally 2 times a day for 90 days Active Multivitamin - 1 tab(s) orally once a day for 30 day(s) Active Omeprazole 20 MG 1 cap(s) orally once a day for 90 days Active IBU 600 MG 1 tab(s) orally three times a day prn for 30 day(s) 10/13/2019 Active PROAIR HFA 90 MCG/INH 2 PUFF(S) INHALED 4 TIMES A DAY PRN for 90 DAYS *Please review for potential replacement for e-prescription and drug interaction check* Active Immunizations Vaccine Route Administration Date Status Comme nts Influenza-Fluzone 3+years (NON-MEDICARE) IM Intramuscular 08/12/2017 Administered Influenza-Fluzone 3+years (NON-MEDICARE) IM Intramuscular 08/31/2018 Administered FLUZONE 6MO - OLDER IM Intramuscular 08/18/2019 Administer ed Covid Antonio IM Intramuscular 12/31/2020 Administered Social History Tobacco Use: Social History Observation Description Date Details (start date - stop date) Former Smoker NA - NA Smoking: Question Answer Notes Are you a: former smoker How long has it been since you last smoked? 1-5 years Problems Problem Type SNOMED Code ICD Code Onset Dates Problem Status W/U Status Risk Notes Problem 893972842 Mixed hyperlipidemia (E78.2) Active confirmed Problem 562884350 Irritable bowel syndrome with diarrhea (K58.0) Active confirmed Problem 563969106451529 Lumbago with sciatica, right side (M54.41) Active confirmed Problem 779850296 Lumbago with sciatica, left side (M54.42) Active confirmed Problem 437380262 Depression with anxiety (F41.8) Active confirmed Problem 60752605 Paresthesia (R20.2) Active confirmed Problem 95575018 Vitamin D deficiency (E55.9) Active confirmed Problem 17794559 Essential hypertension (I10) Active confirmed Problem 988785271969614 Rotator cuff syndrome of right shoulder (M75.101) Active confirmed Problem 919421337 BMI 33.0-33.9,adult (Z68.33) Active confirmed Problem 93479778 Other chronic pa in (G89.29) Active confirmed Problem 372969281 BMI 32.0-32.9,adult (Z68.32) Active confirmed Problem 04675461 Chronic obstructive pulmonary disease, unspecified COPD type (J44.9) Active confirmed Problem 230328325 History of breas t cancer (Z85.3) Active confirmed Problem 10718232 Lumbar degenerative disc disease (M51.36) Active confirmed Problem 694936223189884 Rotator cuff syndrome of left shoulder (M75.102) Active confirmed Problem 224484432 Urinary incontinence, unspecified type (R32) Active confirmed Problem 59297978 Incontinence of feces, unspecified fecal incontinence type (R15.9) Active confirmed Problem 39210015 PVC's (premature ventricular contractions) (I49.3) Active confirmed Encounters Encounter Location Date Provider Diagnosis [facility] [address] [facility] [address] [place] [address] 12/30/2024 Provider Migration Chronic obstructive pulmonary disease, unspecified COPD type J44.9 Assessments Encounter Date Diagnosis (ICD Code) Assessment Notes Treatment Notes Treatment Clinical Notes Section Notes 12/30/2024 Chronic obstructive pulmonary disease, unspecified COPD type (ICD-10 - J44.9) Plan Of Treatment Pending Test Test Name Order Date CT Scan : Chest, Without Contrast 2016 Physical Therapy 11/01/2019 Mammogram : Bilateral 04/30/2022 Mammogram : Bilateral 08/18/2019 Holter Monitor, 48 hour 12/28/2018 H-CMP 08/12/2017 H-LIPID PANEL 08/12/2017 Echocardiogram - Bubble Study 12/28/2018 M-Comprehensive Metabolic Panel 12/28/19 21 M-Hemoglobin A1C 12/27/2020 M-Lipid Panel 12/27/2020 M-Diarrhea Panel, PCR 08/15/2021 M-Vitamin B12 07/04/2021 M-Vitamin D 25 Hydroxy 07/04/2021 Insurance Providers Payer Name Payer Address Payer Phone Subscriber Number Group Number Insured Name Patient Relationship to Insured Coverage Start Date Coverage End Date [employer] MED[employer]ARE [address] [address] [place] [address] [id number] Kaykay Valencia Self - patient is the insured Medications Administered Medication Instructions Date of Administration Dosage Notes Triamcinolone Acetonide 40mg Injection 10/13/2019 1 mL Medical (General) History Medical History History ICD Code COPD Asthma Right breast cacner with partial mastect nancy colonoscopy August2021 repeat [place] py 5 years PVC Frozen left shoulder IBS Surgical History Surgery Date(Month/Year) c-sections x2 Right partial mastectomy- removed lymph nodes 2001 Cholecystectomy 02/2017 Hospitalization History Reason Date(Month/Year) Surgeries as above
--- OUTSIDE RECORDS SUMMARY | 2025-03-12 13:24 | XMS_ITS | Encounter Summary ---
Author Organization [facility] Address [address] [place] [address] Care Team Providers Care Vice President Business & Corporate Development Name Role Phone Rita Spence DO Primary Care Provider [phone] Reason for Referral * Consultation (Routine) - Authorized Specialty Diagnoses / Procedures Referred By Contac t Referred To Contact Neurology Diagnoses Weakness generalized Myotonia Mckayla Diaz MD [address] [facility] [address] [place] [address] Phone: tel: fax: Referral ID Status Reason Start Date Expiration Date Visits Requested Visits Authorized [id number] Authorized Specialty Services Required 02/02/2025 08/04/2026 1 1 Encounter Details Date Type Department Care Team (Late st Contact Info) Description 02/02/2025 [facility] [address] [place] [address] Mckayla Diaz MD [address] [facility] [address] [place] [address] Weakness generalized (Primary Dx); Myotonia Social History Tobacco Use Types Packs/Day Years [...] Info) Description 06/25/2025 1:00 PM EDT Consult [facility] [address] [facility], [address] [place] [address] Darrel Cruz MD [address] [place] [address] 11/20/2025 2:00 PM EST Office Visit [facility] [address] [place] [address] Betty Arthur MD [address] [place] [address] Scheduled Referrals Name Type Priority Associated Diagnoses Order Schedule Ambulatory referral to Neurology Outpatient Referral Routine Weakness generalized Myotonia Expected: 02/02/2025 (Approximate), Expires: 08/05/2026 documented as of this encounter Visit Diagnoses Diagnosis Weakness generalized- Primary Other malaise and fatigue Myotonia Spasm of muscle documented in this encounter Additional Health Concerns Assessment Noted Time PHQ-9 Depression Total Score: 0 09/11/20 1:56 PM EST A fall risk assessment has been complete d for the patient 11/20/2024 1:38 PM EST A Body Mass Index follow-up plan has been documented for the patient 11/20/2024 2:08 PM EST documented as of this encounter Care Teams Vice President Business & Corporate Development Relationship Specialty Start Date End Date Rita Spence DO [address] [place], [place] [address] [address] PCP - General 11/20/24 documented as of this encounter
--- OUTSIDE RECORDS SUMMARY | 2025-03-12 13:25 | XMS_ITS | Data Portability ---
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 Refilled as below. Discussed plan with patient, who expressed understanding . Follow up as noted below. [email or web address] Not available 11/08/2023 13:45:14 Plan of Treatment Reminders Order Date Submit Date Provider Last Modified By Organization Details Last Modified Time Details Appointments None recorded. Lab vitamin D, 25-hydroxy, total, serum 2023 024 [facility], [address], [place], [address], 4 06:45:59 lipid panel, serum 2023 024 [facility], [address], [place], [address], 4 06:45:57 CBC w/ auto diff 2023 024 [facility], [address], [place], [address], 4 06:45:58 CMP, serum or plasma 2023 024 [facility], [address], [place], [address], 4 06:45:58 TSH, serum or plasma 2023 024 [facility], [address], [place], [address], 4 06:45:59 lipid panel, serum 2022 023 [facility], [address], [place], [address], 3 04:35:10 TSH, serum or plasma 2022 023 [facility], [address], [place], [address], 3 04:35:13 vitamin B12, serum 2022 023 [facility], [address], [place], [address], 3 04:35:12 vitamin D, 25-hydroxy, total, serum 2022 023 [facility], [address], [place], [address], 3 04:35:13 CMP, serum or plasma 2022 023 [facility], [address], [place], [address], 3 04:35:11 CBC w/ auto diff 2022 023 [facility], [address], [place], [address], 3 04:35:[address] referral - first available appt please 2022 023 [facility], [address], [place], [address], 3 11:48:31 Procedures None recorded. Surgeries None recorded. Imaging CT, abdomen + pelvis, w/o contrast 2023 024 [facility] Central[facility] Scheduling, [address] , [place], [address], 4 16:59:42 Medication Orders azelastine 137 mcg (0.1 %) nasal spray 2022 023 [facility], [address], [place], [address], 3 13:58:26 Flonase Allergy Relief 50 mcg/actuati on nasal spray,suspe nsion 2022 023 [facility], [address], [place], [address], 3 13:58:22 albuterol sulfate HFA 90 mcg/actuati on aerosol inhaler 2022 023 [facility], [address], [place], [address], 3 13:58:24 simvastatin 20 mg tablet 2022 023 [facility], [address], [place], [address], 3 13:58:22 omeprazole 20 mg capsule,del ayed release 2022 023 [email or web address] 1 [facility], [address], [place], [address], 4 13:07:42 bisoprolol fumarate 5 mg tablet 2022 023 [facility], [address], [place], [address], 3 13:58:26 lisinopril 20 mg tablet 2022 023 [facility], [address], [place], [address], 3 13:58:25 albuterol sulfate 1.25 mg/3 mL solution for nebulizatio n 2022 023 [facility], [address] [facility], [place], [address], 3 13:58:25 Flonase Allergy Relief 50 mcg/actuati on nasal spray,suspe nsion 2022 023 [facility], [address], [place], [address], 3 13:40:25 azelastine 137 mcg (0.1 %) nasal spray 2022 023 [facility], [address], [place], [address], 3 13:40:28 omeprazole 20 mg capsule,del ayed release 2022 023 [email or web address] 1 [facility], [address], [place], [address], 4 13:07:42 bisoprolol fumarate 5 mg tablet 2022 023 [facility], [address] , [place], [address], 3 13:40:26 albuterol sulfate 1.25 mg/3 mL solution for nebulizatio n 2022 023 [facility], [address], [place], [address], 3 13:40:25 Patient TargetsNo targets recorded. Patient InstructionsNo instructions recorded. 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 first available appt please Referring Physician: Iraida Zavala, Family Medicine, Encounter Date: 01/25/2023 Results Created Date Observation Date Name Description Value Unit Range Abnormal Flag Note LastModifiedBy Organization Detail LastModifiedTime 08/05/2008/06/2023 LIPID PANEL , STAND SHARON cholesterol, total 194 mg/dL <200 normal Not Available [facility] [address], [place], [address], 08/06/2023 07:59:33 08/05/2008/06/2023 LIPID PANEL , STAND SHARON HDL cholesterol 89 mg/dL > or = 50 normal Not Available [facility] [address], [place], [address], 08/06/2023 07:59:33 08/05/2008/06/2023 LIPID PANEL , STAND SHARON triglyceride s 119 mg/dL <150 normal Not Available [facility] [place] [facility] [address], [place], [address], 08/06/2023 07:59:33 08/05/2008/06/2023 LIPID PANEL , STAND SHARON LDL-choleste rol 83 mg/dL _(autumn c) normal Refer ence range : <100 Keny able range <100 mg/dL for prima ry preve ntion ; <70 mg/dL for patie nts with CHD or diabe tic patie nts with > or = 2 CHD risk facto rs. LDL-C is now calcu lated using the Pari n-Hop kins helenu herber n, which is a valid ated novel shayna hart than the Fried aydee equat ion in the estim ation of LDL-C . Pari jarrell SS et al. NICOLE. 2013; 310(1 9): 2061- 2068 (http ://ed bettieati on.Qu estDi Anytime DDs. com/f aq/FA Q164) Not Available [facility] [place] [facility] [address] [facility] [place], [address], 08/06/2023 07:59:33 08/05/2008/06/2023 LIPID PANEL , STAND SHARON chol/HDLC ratio 2.2 (calc ) <5.0 normal Not Available [facility] [place] [facility] [address] [place], [address], 08/06/2023 07:59:33 08/05/20 23 08/06/2023 LIPID PANEL , STAND SHARON non HDL cholesterol 105 mg/dL _(autumn c) <130 normal For patie nts with diabe tl plus 1 major ASCVD risk facto r, treat ing to a non-H DL-C goal of <100 mg/dL (LDL- C of <70 mg/dL ) is consi dered a thera peuti c optio n. Not Available [facility] [address] [facility] [place], [address], 08/06/2023 07:59:33 08/05/2008/06/2023 COMPR EHENS ELIF METAB OLIC PANEL glucose 99 mg/dL 65-99 normal Fasti ng refer ence inter familia Not Available [facility] [address] [facility] [place], [address], 08/06/2023 07:59:33 08/05/20 23 08/06/2023 COMPR EHENS ELIF METAB OLIC PANEL urea nitrogen (BUN) 14 mg/dL 7-25 normal Not Available [facility] [address] [place], [address], 08/06/2023 07:59:33 08/05/20 23 08/06/2023 COMPR EHENS ELIF METAB OLIC PANEL creatinine 0.48 mg/dL 0.50-1 .05 low Not Available [facility] [address] [facility] [place], [address], 08/06/2023 07:59:33 08/05/20 23 08/06/2023 COMPR EHENS ELIF METAB OLIC PANEL eGFR 106 mL/mi n/1.7 3m2 > or = 60 normal Not Available [facility] [address] [place], [address], 08/06/2023 07:59:33 08/05/20 23 08/06/2023 COMPR EHENS ELIF METAB OLIC PANEL BUN/creatini ne ratio 29 (calc ) 6-22 high Not Available [facility] [address] [place], [address], 08/06/2023 07:59:33 08/05/20 23 08/06/2023 COMPR EHENS ELIF METAB OLIC PANEL sodium 139 mmol/ L 135-14 6 normal Not Available [facility] [address] [place], [address], 08/06/2023 07:59:33 08/05/20 23 08/06/2023 COMPR EHENS ELIF METAB OLIC PANEL potassium 4.6 mmol/ L 3.5-5. 3 normal Not Available [facility] [address] [place], [address], 08/06/2023 07:59:33 08/05/20 23 08/06/2023 COMPR EHENS ELIF METAB OLIC PANEL chloride 104 mmol/ L 98-110 normal Not Available [facility] [address] [place], [address], 08/06/2023 07:59:33 08/05/20 23 08/06/2023 COMPR EHENS ELIF METAB OLIC PANEL carbon dioxide 27 mmol/ L 20-32 normal Not Available [facility] [address] [place], [address], 08/06/2023 07:59:33 08/05/20 23 08/06/2023 COMPR EHENS ELIF METAB OLIC PANEL calcium 9.6 mg/dL 8.6-10 .4 normal Not Available [facility] [place] [facility] [address] [facility] [place], [address], 08/06/2023 07:59:33 08/05/20 23 08/06/2023 COMPR EHENS ELIF METAB OLIC PANEL protein, total 6.8 g/dL 6.1-8. 1 normal Not Available [facility] [address] [facility] [place], [address], 08/06/2023 07:59:33 08/05/2008/06/2023 COMPR EHENS ELIF METAB OLIC PANEL albumin 4.4 g/dL 3.6-5. 1 normal Not Available [facility] [address] [place], [address], 08/06/2023 07:59:33 08/05/20 23 08/06/2023 COMPR EHENS ELIF METAB OLIC PANEL globulin 2.4 g/dL_ (calc ) 1.9-3. 7 normal Not Available [facility] [address] [facility] [place], [address], 08/06/2023 07:59:33 08/05/20 23 08/06/2023 COMPR EHENS ELIF METAB OLIC PANEL albumin/glob ulin ratio 1.8 (calc ) 1.0-2. 5 normal Not Available [facility] [address] [facility] [place], [address], 08/06/2023 07:59:33 08/05/20 23 08/06/2023 COMPR EHENS ELIF METAB OLIC PANEL bilirubin, total 0.4 mg/dL 0.2-1. 2 normal Not Available [facility] [address] [place], [address], 08/06/2023 07:59:33 08/05/20 23 08/06/2023 COMPR EHENS ELIF METAB OLIC PANEL alkaline phosphatase 100 U/L 37-153 normal Not Available [facility] [address] [place], [address], 08/06/2023 07:59:33 08/05/20 23 08/06/2023 COMPR EHENS ELIF METAB OLIC PANEL AST 23 U/L 10-35 normal Not Available [facility] [address] [place], [address], 08/06/2023 07:59:33 08/05/2008/06/2023 COMPR EHENS ELIF METAB OLIC PANEL ALT 25 U/L 6-29 normal Not Available [facility] [address] [place], [address], 08/06/2023 07:59:33 08/05/20 23 08/06/2023 CBC (INCL UDES DIFF/ PLT) white blood cell count 7.2 thous and/u L 3.8-10 .8 normal Not Available [facility] [facility] [place], [address], 08/06/2023 04:35:12 08/05/20 23 08/06/2023 CBC (INCL UDES DIFF/ PLT) red blood cell count 4.58 jimmy on/uL 3.80-5 .10 normal Not Available [facility] [address] [place], [address], 08/06/2023 04:35:12 08/05/20 23 08/06/2023 CBC (INCL UDES DIFF/ PLT) hemoglobin 14.0 g/dL 11.7-1 5.5 normal Not Available [facility] [address] [place], [address], 08/06/2023 04:35:12 08/05/20 23 08/06/2023 CBC (INCL UDES DIFF/ PLT) hematocrit 41.7 % 35.0-4 5.0 normal Not Available [facility] [address] [facility] [place], [address], 08/06/2023 04:35:12 08/05/2008/06/2023 CBC (INCL UDES DIFF/ PLT) MCV 91.0 fL 80.0-1 00.0 normal Not Available [facility] [address] [facility] [place], [address], 08/06/2023 04:35:12 08/05/2008/06/2023 CBC (INCL UDES DIFF/ PLT) MCH 30.6 pg 27.0-3 3.0 normal Not Available [facility] [address] [facility] [place], [address], 08/06/2023 04:35:12 08/05/2008/06/2023 CBC (INCL UDES DIFF/ PLT) MCHC 33.6 g/dL 32.0-3 6.0 normal Not Available [facility] [address] [facility] [place], [address], 08/06/2023 04:35:12 08/05/2008/06/2023 CBC (INCL UDES DIFF/ PLT) RDW 13.2 % 11.0-1 5.0 normal Not Available [facility] [address] [facility] [place], [address], 08/06/2023 04:35:12 08/05/20 23 08/06/2023 CBC (INCL UDES DIFF/ PLT) platelet count 323 thous and/u L 140-40 0 normal Not Available [facility] [address] [facility] [place], [address], 08/06/2023 04:35:12 08/05/20 23 08/06/2023 CBC (INCL UDES DIFF/ PLT) MPV 8.7 fL 7.5-12 .5 normal Not Available [facility] [place] [facility] [address], [place], [address], 08/06/2023 04:35:12 08/05/2008/06/2023 CBC (INCL UDES DIFF/ PLT) absolute neutrophils 4680 cells /uL 1500-7 800 normal Not Available [facility] [place] [facility] [address], [place], [address], 08/06/2023 04:35:12 08/05/2008/06/2023 CBC (INCL UDES DIFF/ PLT) absolute lymphocytes 1778 cells /uL 850-39 00 normal Not Available [facility] [place] [facility] [address], [place], [address], 08/06/2023 04:35:12 08/05/2008/06/2023 CBC (INCL UDES DIFF/ PLT) absolute monocytes 576 cells /uL 200-95 0 normal Not Available [facility] [place] [facility] [address], [place], [address], 08/06/2023 04:35:12 08/05/2008/06/2023 CBC (INCL UDES DIFF/ PLT) absolute eosinophils 122 cells /uL 15-500 normal Not Available [facility] [place] [facility] [address], [place], [address], 08/06/2023 04:35:12 08/05/20 23 08/06/2023 CBC (INCL UDES DIFF/ PLT) absolute basophils 43 cells /uL 0-200 normal Not Available [facility] [place] [facility] [address], [place], [address], 08/06/2023 04:35:12 08/05/2008/06/2023 CBC (INCL UDES DIFF/ PLT) neutrophils 65 % normal Not Available [facility] [place] [facility] [address], [place], [address], 08/06/2023 04:35:12 08/05/20 23 08/06/2023 CBC (INCL UDES DIFF/ PLT) lymphocytes 24.7 % normal Not Available [facility] [address] [place], [address], 08/06/2023 04:35:12 08/05/20 23 08/06/2023 CBC (INCL UDES DIFF/ PLT) monocytes 8.0 % normal Not Available [facility] [address] [place], [address], 08/06/2023 04:35:12 08/05/20 23 08/06/2023 CBC (INCL UDES DIFF/ PLT) eosinophils 1.7 % normal Not Available [facility] [address] [place], [address], 08/06/2023 04:35:12 08/05/20 23 08/06/2023 CBC (INCL UDES DIFF/ PLT) basophils 0.6 % normal Not Available [facility] [place], [address], 08/06/2023 04:35:12 08/05/20 23 08/06/2023 VITAM IN B12 vitamin B12 413 pg/mL 200-11 00 normal Not Available [facility] [place], [address], 08/06/2023 07:21:41 08/05/2008/06/2023 TSH W/REF KELSY TO FT4 TSH w/reflex to FT4 1.27 mIU/L 0.40-4 .50 normal Not Available [facility] [address] [place], [address], 08/06/2023 07:21:42 08/05/20 23 08/06/2023 VITAM IN D,25- OH,TO MJ,I A vitamin D,25-oh,tota l,ia 26 NG/mL 30-100 low Vitam in D Statu s 25-OH Vitam in D: Defic iency : <20 ng/mL Insuf ficie ncy: 20 - 29 ng/mL Optim al: > or = 30 ng/mL For 25-OH Vitam in D testi ng on patie nts on D2-maguire pplem entat ion and patie nts for whom quant itati on of D2 and D3 fract ions is requi red, the [facility] eD(TM ) 25-OH VIT D, (D2,D 3), LC/MS /MS is recom heather d: order code 29067 (tyron ents >2yrs ). See Note 1 Note 1 For addit ional infor atilio naranjo refer to http: //[facility] kiera Esparza gnost ics.c om/fa q/FAQ 199 (This link is being provi ded for infor bonnie mayers/ braden ba purpo ses only. ) Not Available [facility] [place] [facility] [address] [facility], [place], [address], 08/06/2023 07:21:42 10/28/19 24 10/29/2023 VITAM IN D,25- OH,TO MJ,I A vitamin D,25-oh,tota l,ia 80 NG/mL 30-100 normal Vitam in D Statu s 25-OH Vitam in D: Defic iency : <20 ng/mL Insuf ficie ncy: 20 - 29 ng/mL Optim al: > or = 30 ng/mL For 25-OH Vitam in D testi ng on patie nts on D2-maguire pplem entat ion and patie nts for whom quant itati on of D2 and D3 fract ions is requi red, the [facility] Ass[facility] eD(TM ) 25-OH VIT D, (D2,D 3), LC/MS /MS is recom heather d: order code 91994 (tyron ents >2yrs ). See Note 1 Note 1 For addit ional infor atilio naranjo refer to http: //malou Serra stDia gnost ics.c om/fa q/FAQ 199 (This link is being provi ded for infor bonnie nal/ educa lorena l purpo ses only. ) Not Available [facility] [place] [facility] [address] [facility] [place], [address], 10/29/2023 09:52:54 02/03/20 24 02/04/2024 LIPID PANEL , STAND SHARON cholesterol, total 156 mg/dL <200 normal Not Available [facility] [place] [facility] [address] [facility], [place], [address], 02/04/2024 10:14:33 02/03/20 24 02/04/2024 LIPID PANEL , STAND SHARON HDL cholesterol 74 mg/dL > or = 50 normal Not Available [facility] [place] [facility] [address] [facility] [place], [address], 02/04/2024 10:14:33 02/03/20 24 02/04/2024 LIPID PANEL , STAND SHARON triglyceride s 148 mg/dL <150 normal Not Available [facility] [place] [facility] [address] [facility] [place], [address], 02/04/2024 10:14:33 02/03/20 24 02/04/2024 LIPID PANEL , STAND SHARON LDL-choleste rol 59 mg/dL _(autumn c) normal Refer ence range : <100 Keny able range <100 mg/dL for prima ry preve ntion ; <70 mg/dL for patie nts with CHD or diabe tic patie nts with > or = 2 CHD risk facto rs. LDL-C is now calcu lated using the Pari n-Hop kins calcu herber n, which is a valid ated novel shayna hart than the Fried aydee equat ion in the estim ation of LDL-C . Pari jarrell SS et al. NICOLE. 2013; 310(1 9): 2061- 2068 (http ://ed ucati on.Qu estDi maria isabelIDRI ([facility])s. com/f aq/FA Q164) Not Available [facility] [place] [facility] [address] [facility] [place], [address], 02/04/2024 10:14:33 02/03/20 24 02/04/2024 LIPID PANEL , STAND SHARON chol/HDLC ratio 2.1 (calc ) <5.0 normal Not Available [facility] [place] [facility] [address] [place], [address], 02/04/2024 10:14:33 02/03/20 24 02/04/2024 LIPID PANEL , STAND SHARON non HDL cholesterol 82 mg/dL _(autumn c) <130 normal For patie nts with diabe tl plus 1 major ASCVD risk facto r, treat ing to a non-H DL-C goal of <100 mg/dL (LDL- C of <70 mg/dL ) is consi dered a thera peuti c optio n. Not Available [facility] [address] [place], [address], 02/04/2024 10:14:33 02/03/20 24 02/04/2024 COMPR EHENS ELIF METAB OLIC PANEL glucose 105 mg/dL 65-99 high Fasti ng refer ence inter familia For someo ne witho ut known diabe tl, a gluco se value betwe en 100 and 125 mg/dL is consi stent with predi abete s and shoul d be confi rmed with a follo w-up test. Not Available [facility] [address] [place], [address], 02/04/2024 10:14:34 02/03/20 24 02/04/2024 COMPR EHENS ELIF METAB OLIC PANEL urea nitrogen (BUN) 14 mg/dL 7-25 normal Not Available [facility] [place] [facility] [address] [place], [address], 02/04/2024 10:14:34 02/03/20 24 02/04/2024 COMPR EHENS ELIF METAB OLIC PANEL creatinine 0.56 mg/dL 0.50-1 .05 normal Not Available [facility] [place] [facility] [address] [place], [address], 02/04/2024 10:14:34 02/03/20 24 02/04/2024 COMPR EHENS ELIF METAB OLIC PANEL eGFR 102 mL/mi n/1.7 3m2 > or = 60 normal Not Available [facility] [place] [facility] [address] [place], [address], 02/04/2024 10:14:34 02/03/20 24 02/04/2024 COMPR EHENS ELIF METAB OLIC PANEL BUN/creatini ne ratio SEE NOTE: (calc ) 6-22 Not Repor jenni: BUN and Creat inine are withi n refer ence range . Not Available [facility] [place] [facility] [address] [place], [address], 02/04/2024 10:14:34 02/03/20 24 02/04/2024 COMPR EHENS ELIF METAB OLIC PANEL sodium 132 mmol/ L 135-14 6 low Not Available [facility] [address] [place], [address], 02/04/2024 10:14:34 02/03/20 24 02/04/2024 COMPR EHENS ELIF METAB OLIC PANEL potassium 4.4 mmol/ L 3.5-5. 3 normal Not Available [facility] [place] [facility] [address] [place], [address], 02/04/2024 10:14:34 02/03/20 24 02/04/2024 COMPR EHENS ELIF METAB OLIC PANEL chloride 96 mmol/ L 98-110 low Not Available [facility] [address] [place], [address], 02/04/2024 10:14:34 02/03/20 24 02/04/2024 COMPR EHENS ELIF METAB OLIC PANEL carbon dioxide 26 mmol/ L 20-32 normal Not Available [facility] [address] [facility] [place], [address], 02/04/2024 10:14:34 02/03/20 24 02/04/2024 COMPR EHENS ELIF METAB OLIC PANEL calcium 9.8 mg/dL 8.6-10 .4 normal Not Available [facility][1[facility] [address] [facility] [place], [address], 02/04/2024 10:14:34 02/03/20 24 02/04/2024 COMPR EHENS ELIF METAB OLIC PANEL protein, total 6.8 g/dL 6.1-8. 1 normal Not Available [facility] [address] [facility] [place], [address], 02/04/2024 10:14:34 02/03/20 24 02/04/2024 COMPR EHENS ELIF METAB OLIC PANEL albumin 4.5 g/dL 3.6-5. 1 normal Not Available [facility][1[facility] [address] [facility] [place], [address], 02/04/2024 10:14:34 02/03/20 24 02/04/2024 COMPR EHENS ELIF METAB OLIC PANEL globulin 2.3 g/dL_ (calc ) 1.9-3. 7 normal Not Available [facility] [address] [facility] [place], [address], 02/04/2024 10:14:34 02/03/20 24 02/04/2024 COMPR EHENS ELIF METAB OLIC PANEL albumin/glob ulin ratio 2.0 (calc ) 1.0-2. 5 normal Not Available [facility] [address] [facility] [place], [address], 02/04/2024 10:14:34 02/03/20 24 02/04/2024 COMPR EHENS ELIF METAB OLIC PANEL bilirubin, total 0.3 mg/dL 0.2-1. 2 normal Not Available [facility] [address] [place], [address], 02/04/2024 10:14:34 02/03/20 24 02/04/2024 COMPR EHENS ELIF METAB OLIC PANEL alkaline phosphatase 92 U/L 37-153 normal Not Available [facility] [address] [place], [address], 02/04/2024 10:14:34 02/03/20 24 02/04/2024 COMPR EHENS ELIF METAB OLIC PANEL AST 17 U/L 10-35 normal Not Available [facility] [address] [place], [address], 02/04/2024 10:14:34 02/03/20 24 02/04/2024 COMPR EHENS ELIF METAB OLIC PANEL ALT 15 U/L 6-29 normal Not Available [facility] [address] [place], [address], 02/04/2024 10:14:34 02/03/20 24 02/04/2024 CBC (INCL UDES DIFF/ PLT) white blood cell count 7.7 thous and/u L 3.8-10 .8 normal Not Available [facility] [address] [place], [address], 02/04/2024 06:45:58 02/03/20 24 02/04/2024 CBC (INCL UDES DIFF/ PLT) red blood cell count 4.40 jimmy on/uL 3.80-5 .10 normal Not Available [facility] [facility] [address] [place], [address], 02/04/2024 06:45:58 02/03/20 24 02/04/2024 CBC (INCL UDES DIFF/ PLT) hemoglobin 13.5 g/dL 11.7-1 5.5 normal Not Available [facility] [address] [facility] [place], [address], 02/04/2024 06:45:58 02/03/2002/04/2024 CBC (INCL UDES DIFF/ PLT) hematocrit 40.9 % 35.0-4 5.0 normal Not Available [facility] [address] [facility] [place], [address], 02/04/2024 06:45:58 02/03/20 24 02/04/2024 CBC (INCL UDES DIFF/ PLT) MCV 93.0 fL 80.0-1 00.0 normal Not Available [facility] [address] [facility] [place], [address], 02/04/2024 06:45:58 02/03/20 24 02/04/2024 CBC (INCL UDES DIFF/ PLT) MCH 30.7 pg 27.0-3 3.0 normal Not Available [facility] [address] [facility] [place], [address], 02/04/2024 06:45:58 02/03/2002/04/2024 CBC (INCL UDES DIFF/ PLT) MCHC 33.0 g/dL 32.0-3 6.0 normal Not Available [facility] [address] [facility] [place], [address], 02/04/2024 06:45:58 02/03/2002/04/2024 CBC (INCL UDES DIFF/ PLT) RDW 13.1 % 11.0-1 5.0 normal Not Available [facility] [address] [facility] [place], [address], 02/04/2024 06:45:58 02/03/20 24 02/04/2024 CBC (INCL UDES DIFF/ PLT) platelet count 325 thous and/u L 140-40 0 normal Not Available [facility] [address], [place], [address], 02/04/2024 06:45:58 02/03/2002/04/2024 CBC (INCL UDES DIFF/ PLT) MPV 8.2 fL 7.5-12 .5 normal Not Available [facility] [place] [facility] [address], [place], [address], 02/04/2024 06:45:58 02/03/20 24 02/04/2024 CBC (INCL UDES DIFF/ PLT) absolute neutrophils 5059 cells /uL 1500-7 800 normal Not Available [facility] [place] [facility] [address], [place], [address], 02/04/2024 06:45:58 02/03/20 24 02/04/2024 CBC (INCL UDES DIFF/ PLT) absolute lymphocytes 1879 cells /uL 850-39 00 normal Not Available [facility] [place] [facility] [address], [place], [address], 02/04/2024 06:45:58 02/03/2002/04/2024 CBC (INCL UDES DIFF/ PLT) absolute monocytes 593 cells /uL 200-95 0 normal Not Available [facility] [place] [facility] [address], [place], [address], 02/04/2024 06:45:58 02/03/20 24 02/04/2024 CBC (INCL UDES DIFF/ PLT) absolute eosinophils 139 cells /uL 15-500 normal Not Available [facility] [place] [facility] [address], [place], [address], 02/04/2024 06:45:58 02/03/2002/04/2024 CBC (INCL UDES DIFF/ PLT) absolute basophils 31 cells /uL 0-200 normal Not Available [facility] [place] [facility] [address] [place], [address], 02/04/2024 06:45:58 02/03/20 24 02/04/2024 CBC (INCL UDES DIFF/ PLT) neutrophils 65.7 % normal Not Available [facility] [place] [facility] [address] [facility] [place], [address], 02/04/2024 06:45:58 02/03/20 24 02/04/2024 CBC (INCL UDES DIFF/ PLT) lymphocytes 24.4 % normal Not Available [facility] [place] [facility] [address] [place], [address], 02/04/2024 06:45:58 02/03/2002/04/2024 CBC (INCL UDES DIFF/ PLT) monocytes 7.7 % normal Not Available [facility] [address] [place], [address], 02/04/2024 06:45:58 02/03/2002/04/2024 CBC (INCL UDES DIFF/ PLT) eosinophils 1.8 % normal Not Available [facility] [place] [facility] [address] [place], [address], 02/04/2024 06:45:58 02/03/2002/04/2024 CBC (INCL UDES DIFF/ PLT) basophils 0.4 % normal Not Available [facility] [address] [place], [address], 02/04/2024 06:45:58 02/03/2002/04/2024 TSH W/REF KELSY TO FT4 TSH w/reflex to FT4 1.98 mIU/L 0.40-4 .50 normal Not Available [facility] [place] [facility] [address] [facility] [place], [address], 02/04/2024 07:45:11 02/03/20 24 02/04/2024 VITAM IN D,25- OH,TO MJ,I A vitamin D,25-oh,tota l,ia 50 NG/mL 30-100 normal Vitam in D Statu s 25-OH Vitam in D: Defic iency : <20 ng/mL Insuf ficie ncy: 20 - 29 ng/mL Optim al: > or = 30 ng/mL For 25-OH Vitam in D testi ng on patie nts on D2-maguire pplem entat ion and patie nts for whom quant itati on of D2 and D3 fract ions is requi red, the [facility] eD(TM ) 25-OH VIT D, (D2,D 3), LC/MS /MS is recom heather d: order code 10920 (tyron ents >2yrs ). See Note 1 Note 1 For addit ional infor atilio naranjo refer to http: //[facility] kiera Serra stDia gnost ics.c om/fa q/FAQ 199 (This link is being provi ded for infor bonnie mayers/ braden ba purpo ses only. ) Not Available [facility] [place] [facility] [address] [facility], [place], [address], 02/04/2024 07:45:12 11/17/19 24 11/17/2023 CT, abdom en + pelvi s, w/o contr ast No observ ation record ed. [email or web address] [facility] (Radiology) [address] [place], [address], 11/23/2023 17:50:58 11/17/19 24 11/17/2023 CT ABD/p michelle oral contr only [facility] [address] [facility] [place] [address] Phone: Fax: Name: CHARLES CANO Exam Date: 024 : [birth year] Age 62 years Gender : F Access ion: [id number] Physic zoey: SONG ZAVALA Facili ty: [facility] Facili ty HSV: Outpat ient Exam: CT ABD/PE LVIS ORAL CONTR ONLY EXAM: CT ABDOME N AND PELVIS WITHOU T IV CONTRA ST INDICA TION: Right lower quadra nt Abdomi nal pain TECHNI QUE: The patien t was not inject ed with IV contra st. Oral contra st was not admini stered . Axial images were obtain ed from the lung bases to the pubic symphy sis by comput ed tomogr aphy. This study was perfor med with techni ques to keep radiat ion doses as low as reason ably achiev able, (ALARA ). Indivi dualiz ed dose reduct ion techni ques using automa jenni exposu re contro l or adjust ment of mA and/or kV accord ing to the patien t size were employ ed. COMPAR SAPPHIRE: None FINDIN GS: LUNG BASES: Clear. LIVER: Grossl y unrema rkable GALLBL ADDER/ BILIAR Y TREE: Cholec ystect nancy. SPLEEN : No spleno megaly . ADRENA L GLANDS : Unrema rkable . PANCRE : Grossl y unrema rkable KIDNEY S: No stones . No Hydron ephros is. BOWEL: No small bowel dilata tion. No coloni c dilati on. Modera te coloni c stool in redund ant coloni c loops. Coloni c divert iculos is withou t acute divert iculit is. No eviden ce of acute append icitis . PERITO NEUM/R ETROPE RITONE UM: No free fluid. No free air. LYMPH NODES: No retrop eriton eal adenop athy. No mesent jose adenop athy. BLADDE R: Unrema rkable REPROD UCTIVE ORGANS : Small calcif ied uterin e fibroi d. Bilate ral tubal clips. Uterus and adnexa struct ures are otherw ise unrema rkable . VASCUL AR: No aortic aneury sm. No iliac aneury sm. BONES: No suspic ious osseou s lesion . SOFT TISSUE S: Tiny fat-co ntaini ng umbili autumn hernia . IMPRES SHILOH: No acute pathol ogy Dictat ed By: FRANK RODRIGUEZ Transc ribed By: FRANK RODRIGUEZ Transc ribed On: 024 3:31 PM Legall y authen ticate d by JENNIFER Gutiérrez MD 11-17 15:31: 16 Electr onical ly signed by: FRANK RODRIGUEZ 024 Thank you for referr CHARLES Pena A to [facility]. Legall y authen ticate d by JENNIFER Gutiérrez MD 11-17 15:31: 16 CC'ed Logic: Orderi ng Provid er: ULISES RICE CC Provid er: ULISES RICE Attend ing Provid er: ULISES RICE Referr ing Provid er: ULISES SONG RICE Admitt ing Provid er: ULISES GOMEZOSORIO RICE [email or web address] [facility] (Radiology) [address] , [place], [address], 11/25/2023 15:18:03 Result Notes None recorded. Problems Name Problem SNOMED Code Status Onset Date Resolution Date Notes Provider Name and Address Organization Details Recorded Time Anxiety 00433228 Active 2022 [employer] 3 09:12:14 Depressive disorder 85008935 Active 2022 [employer] 3 09:12:20 Hyperlipidemia 30742064 Active 2022 [employer] 3 09:12:28 Problem Notes None recorded. Procedures Surgical History Date Name Laterality Status Provider Name and Address Organization Details Recorded Time 3 Most Recent Mammogram completed Danna Lopez [employer] 01/25/2023 12:53:33 0 Date of Last Pap Smear completed [employer] 10/29/2022 09:34:18 Breast Biopsy completed [employer] 10/29/2022 09:09:56 Caesarean Section completed [employer] 10/29/2022 09:09:56 Mastectomy completed [employer] 10/29/2022 09:09:56 Tubal Ligation completed [employer] 10/29/2022 09:09:56 Gallbladder Surgery completed CLARY NABIL [employer]. 10/29/2022 09:09:56 Imaging Results None recorded. Procedure Notes None recorded. Medical Equipment None Reported. Allergies Allergen ID Allergen Name Allergen Category Reaction Reaction Severity Criticality Documentation Date Start Date Code Code System Note Provider Name and Address Organization Details Recorded Time 49252 metoprolo l Not available Not available Not available Not available 01/25/2023 6918 RxNorm Tamar carrera [employer] 13:07:10 Medications Name Sig Start Date Stop Date Status Note LastModified by Organization Details LastModified Time amoxicilli n 500 mg capsule TAKE 1 CAPSULE BY MOUTH THREE TIMES DAILY UNTIL GONE active Not Available Not Available No t Available buspirone 5 mg tablet 4 times a day if needed 11/03 completed Not Available Not Available Not Available albuterol sulfate 1.25 mg/3 mL solution for nebulizati on Inhale 3 mL 3 times a day by inhalatio n route. 2022 active Not Available Not Available Not Avai lable hydrocodon e 5 mg-acetami nophen 325 mg tablet TAKE 1 TABLET BY MOUTH EVERY 4 TO 6 HOURS NEEDED FOR PAIN active Not Available Not Available No t Available lisinopril 20 mg tablet TAKE 1 TABLET EVERY DAY active Not Available Not Available No t Available ondansetro n HCl 4 mg tablet TAKE 1 TABLET BY MOUTH EVERY 8 HOURS active Not Available Not Available No t Available bisoprolol fumarate 5 mg tablet TAKE 1 TABLET BY MOUTH DAILY active Not Available Not Available No t Available ropinirole 0.25 mg tablet TAKE 1 TO 3 TABLETS BY MOUTH EVERY NIGHT AT BEDTIME FOR RESTLESS LEG SYNDROME. active Not Available Not Available No t Available simvastati n 20 mg tablet TAKE 1 TABLET BY MOUTH EVERY EVENING active Not Available Not Available No t Available hyoscyamin e 0.125 mg sublingual tablet DISSOLVE 1 TABLET IN MOUTH EVERY 6 HOURS NEEDED 10/29 completed Not Available Not Available Not Available omeprazole 20 mg capsule,de layed release TAKE 1 CAPSULE EVERY DAY 02/02 completed Not Available Not Available Not Available montelukas t 10 mg tablet 10/29 completed Not Available Not Available Not Available ergocalcif jt (vitamin D2) 1,250 mcg (50,000 unit) capsule Take 1 capsule every week by oral route for 90 days. active Not Available Not Available No t Available azelastine 137 mcg (0.1 %) nasal spray Randolph 2 sprays twice a day by intranasa l route. active Not Available Not Available No t Available albuterol sulfate HFA 90 mcg/actuat ion aerosol inhaler INHALE 1 TO 2 PUFFS BY MOUTH EVERY 4 TO 6 HOURS active Not Available Not Available No t Available fluticason e propionate 50 mcg/actuat ion nasal spray,susp ension Randolph 1 spray every day by intranasa l route. active Not Available Not Available No t Available colestipol 1 gram tablet TAKE 2 TABLETS BY MOUTH TWICE DAILY 11/08 completed GI Not Available Not Available Not Available escitalopr am 10 mg tablet Take 1 tablet every day by oral route. 04/27 completed 01/25/23 pt to take 1/2 tab x1 month, then 1/2 tab every other day x2 weeks then d/c Not Available Not Available Not Available Tylenol PM Extra Strength 25 mg-500 mg tablet TAKE 2 TABLETS BY ORAL ROUTE ONCE DAILY AT BEDTIME 01/25 completed Not Available Not Available Not Available melatonin 10mg as needed active Not Available Not Available No t Available fiber (herbal) 11/08 completed Not Available Not Available Not Available Probiotic active Not Available Not Monique ilable Not Available oxygen as needed active Not Available Not Monique ilable Not Available Trelegy Ellipta 100 mcg-62.5 mcg-25 mcg powder for inhalation Inhale 1 puff every day by inhalatio n route. active Not Available Not Available No t Available cannabidio l (CBD) extract 11/08 completed Not Available Not Available Not Available Vitals Date Recorded Body height Body mass index (BMI) Body weight Heart rate Oxygen saturation Oxygen saturation in Arterial blood by Pulse oximetry Systolic blood pressure Diastolic blood pressure Provider Name and Address Organization Details Last Updated DateTime 4 157.48 cm 34.6 kg/m2 03814.9 6 g 75 /min 97 % 97 % 134 mm[Hg] 80 mm[Hg] Danna Lopez [facility] [employer] [facility]. 4 13:18:01 Date Recorded Body height Body mass index (BMI) Body weight Body temperature Heart rate Oxygen saturation Oxygen saturation in Arterial blood by Pulse oximetry Systolic blood pressure Diastolic blood pressure Systolic blood pressure Diastolic blood pressure Provider Name and Address Organization Details Last Updated DateTime 3 157.48 cm 33.6 kg/m2 31254.2 8 g 98.2 [degF] 68 /min 95 % 95 % 159 mm[Hg] 108 mm[Hg] 140 mm[Hg] 82 mm[Hg] Tamar Machado [employer]. 3 13:05:29 Date Recorded Body height Body mass index (BMI) Body weight Heart rate Oxygen saturation Oxygen saturation in Arterial blood by Pulse oximetry Systolic blood pressure Diastolic blood pressure Provider Name and Address Organization Details Last Updated DateTime 4 157.48 cm 33.5 kg/m2 90225.8 g 75 /min 97 % 97 % 120 mm[Hg] 83 mm[Hg] Danna [facility] [employer] 4 13:09:17 Date Recorded Body height Body mass index (BMI) Body weight Heart rate Oxygen saturation Oxygen saturation in Arterial blood by Pulse oximetry Systolic blood pressure Diastolic blood pressure Provider Name and Address Organization Details Last Updated DateTime 3 157.48 cm 33.7 kg/m2 70813.1 g 66 /min 98 % 98 % 136 mm[Hg] 88 mm[Hg] Danna Lirally [employer]. 3 13:08:38 Date Recorded Body height Body mass index (BMI) Body weight Heart rate Oxygen saturation Oxygen saturation in Arterial blood by Pulse oximetry Systolic blood pressure Diastolic blood pressure Provider Name and Address Organization Details Last Updated DateTime 3 157.48 cm 33.7 kg/m2 14680.4 3 g 64 /min 97 % 97 % 130 mm[Hg] 88 mm[Hg] Danna [facility] 3 13:27:40 Social History Question Answer Notes LastModified by Organizat ion Details LastModified Time Tobacco Smoking Status Former Smoker CLARY carrera [employer] 10/29/2022 09:09:56 Do You Have An Advance Directive? No [email or web address] Information not available 10/29/2022 Is Your Home Air Conditioned? Yes [email or web address] Information not available 10/29/2022 How Many Years Have You Consumed Alcohol? 25 [email or web address] Information not available 10/29/2022 Do You Wear A Helmet When Biking? No [email or web address] Information not available 10/29/2022 Are You Blind Or Do You Have Difficulty Seeing? No [email or web address] Information not available 10/29/2022 What Is Your Level Of Caffeine Consumption? Occasional [email or web address] Information not available 10/29/2022 In The 14 Days Before Symptom Onset, Have You Had Close Contact With A Laboratory-confir med COVID-19 While That Case Was Ill? No [email or web address] Information not available 10/29/2022 In The 14 Days Before Symptom Onset, Have You Had Close Contact With A Person Who Is Under Investigation For COVID-19 While That Person Was Ill? No Information not available 10/29/2022 Have You Been To An Area Known To Be High Risk For COVID-19? No [email or web address] Information not available 10/29/2022 Are You Deaf Or Do You Have Serious Difficulty Hearing? No Information not available 10/29/2022 What Type Of Diet Are You Following? SPECIFIC [email or web address] Information not available 10/29/2022 How Many Days Of Moderate To Strenuous Exercise, Like A Brisk Walk, Did You Do In The Last 7 Days? 5 [email or web address] Information not available 10/29/2022 Have There Been Any Changes To Your Family Or Social Situation? Yes [email or web address] Information no t available 10/29/2022 When Did You Quit Smoking? 6-10yearssince lastcigarette Information not available 10/29/2022 Are There Any Guns Present In Your Home? Yes Information not available 10/29/2022 Which Of Your Hands Is Dominant? Right [email or web address] Information not available 10/29/2022 What Is Your Home Situation? Other [email or web address] Information not available 10/29/2022 Do You Have A Medical Power Of Hog Handler? Yes [email or web address] Information not available 10/29/2022 What Was The Date Of Your Most Recent Tobacco Screening? 02/03/2024 [email or web address] Information not available 02/03/2024 Do You Have Any Pets? No [email or web address] Information not available 10/29/2022 What Is Your Relationship Status? [email or web address] Information not available 10/29/2022 Have You Repeated Any Grades? No Information not available 10/29/2022 Do You Use Your Seat Belt Or Car Seat Routinely? No [email or web address] Information not available 10/29/2022 Are You Sexually Active? No Information not available 10/29/2022 Do You Have Any Siblings? Yes [email or web address] Information not available 10/29/2022 Do You Have Smoke And Carbon Monoxide Detectors In Your Home? Yes [email or web address] Information not available 10/29/2022 At What Age Did You Start Smoking Tobacco? 16 [email or web address] Information not available 10/29/2022 Are You Passively Exposed To Smoke? Yes [email or web address] Information no t available 10/29/2022 Are There Any Smokers In Your House? No Information not available 10/29/2022 How Much Tobacco Do You Smoke? 2 PPD [email or web address] Information not available 10/29/2022 Do You Use Sunscreen Routinely? No [email or web address] Information not available 10/29/2022 How Many Years Have You Smoked Tobacco? 35 [email or web address] Information not available 10/29/2022 Have You Recently Traveled Abroad? No [email or web address] Information not available 10/29/2022 Do You Have Difficulty Walking Or Climbing Stairs? Yes Information not available 10/29/2022 Are You Currently In School? No [email or web address] Information not available 10/29/2022 Sex: Female Functional Status Question Answer Note LastModified by Organizat ion Details LastModified Time Do you use any illicit or recreational drugs? No [email or web address] Information not available 10/29/2022 What is your level of alcohol consumption? Moderate [email or web address] Information not available 10/29/2022 Are you currently employed? No [email or web address] Information not available 10/29/2022 Do you have transportation difficulties? No [email or web address] Information not available 10/29/2022 Are you able to walk? YESASSIST [email or web address] Information not available 10/29/2022 Do you have difficulty doing errands alone? No [email or web address] Information not available 10/29/2022 Are you able to care for yourself? Yes [email or web address] Information not available 10/29/2022 Do you have difficulty dressing or bathing? No [email or web address] Information not available 10/29/2022 What is your exercise level? Moderate [email or web address] Information not available 10/29/2022 Mental Status Question Answer Note LastModified by Organizat ion Details LastModified Time Do you feel stressed (tense, restless, nervous, or anxious, or unable to sleep at night)? [id number] [email or web address] Information not available 10/29/2022 Do you have difficulty concentrating, remembering or making decisions? No [email or web address] Information no t available 10/29/2022 Are you or have you been involved with bullying? No [email or web address] Information not available 10/29/2022 Family History Relationship Description Onset Age of this Age Resolved Age Notes LastModified by Organization Details LastModified Time Mother Hypercholest erolemia [email or web address] Not available 10/29 09:09:54 Mother Asthma [email or web address] Not available 10/29/2022 09:09:54 Mother Anxiety disorder Not available 10/29 09:09:54 Mother Hypertensive disorder Not available 10/29 09:09:54 Mother Seizure [email or web address] Not availabl e 10/29/2022 09:09:54 Father Hypercholest erolemia Not available 10/29 09:09:54 Father Anxiety disorder [email or web address] Not available 10/29 09:09:54 Father Depressive disorder [email or web address] Not available 10/29 09:09:54 Father Hypertensive disorder [email or web address] Not available 10/29 09:09:54 Brother Asthma [email or web address] Not availabl e 10/29/2022 09:09:54 Brother Anxiety disorder [email or web address] Not available 10/29 09:09:54 Brother Depressive disorder [email or web address] Not available 10/29 09:09:54 Sister Hypercholest erolemia [email or web address] Not available 10/29 09:09:54 Sister Asthma [email or web address] Not available 10/29/2022 09:09:54 Sister Anxiety disorder [email or web address] Not available 10/29 09:09:54 Sister Depressive disorder [email or web address] Not available 10/29 09:09:54 Sister Hypertensive disorder [email or web address] Not available 10/29 09:09:54 Medical History Condition Response Anxiety Disorder Y Obesity Y Vision or Eye Problems Y Breast Cancer Y Acid Reflux (GERD) Y GI Problems Y Lung Disease Y Asthma Y Depression Y High Cholesterol Y Hypertension Y Gynecological History Statement/Question Response Menses Monthly N HPV Vaccine N Date of Last Pap Smear 09/27/2009 Most Recent Mammogram 11/19/2022 Age at First Child 18 Obstetrics History GPAL:G 0 P 0 0 0 0 Immunizations Vaccine Type Date Status Note Provider Nam e and Address Organization Details Recorded Time Influenza, split virus, quadrivalent, preservative 7 completed CLARYMOISÉS FERRER [employer], [employer]. 10/29/2022 09:11:56 Influenza, split virus, quadrivalent, preservative 8 completed CLARY NABIL [employer], [employer]. 10/29/2022 09:11:56 Influenza, MDCK, quadrivalent, PF 2 completed CLARY NABIL [employer], [employer]. 10/29/2022 09:11:56 COVID-19, mRNA, LNP-S, PF, 100 mcg/0.5mL dose or 50 mcg/0.25mL dose 2 completed CLARY NABIL [employer]. 10/29/2022 09:11:56 COVID-19 vaccine, vector-nr, rS-Ad26, PF, 0.5 mL 1 completed CLARY NABIL [employer]. 10/29/2022 09:11:56 Pneumococcal conjugate PCV20, polysaccharide [id number] conjugate, adjuvant, PF 2 completed CLARY carrera, [employer] 10/29/2022 09:11:56 influenza, unspecified formulation 7 completed CLARY FERRER null, [employer] 10/29/2022 09:11:56 Influenza, split virus, quadrivalent, PF 0 completed CLARYMOISÉS FERRER null, [employer] 10/29/2022 09:11:56 Influenza, split virus, quadrivalent, PF 1 completed CLARYMOISÉS FERRER null, [employer] 10/29/2022 09:11:56 Influenza, split virus, quadrivalent, PF 9 completed CLARY NABIL null, [employer] 10/29/2022 09:11:56 COVID-19, mRNA, LNP-S, PF, 50 mcg/0.5 mL 3 completed Danna carrera, [employer] 02/03/2024 13:07:16 Past Encounters Encounter ID Performer Location Encounter Start Date Encounter Closed Date Diagnosis/Indication Diagnosis SNOMED-CT Code Diagnosis ICD10 Code Diagnosis Note [id number] [id number] 10/29/2022 09:06:02 10/29/2022 10:03:41 Hyperlipidemia 38111031 E78.5 Screening mammography of bilateral breasts 4664635131 54645 Z12.31 Essential hypertension 13580206 I10 Fatigue 74442467 R53.83 Body mass index 30+ - obesity 446958790 Z68.33 [id number] Iraida Zavala [address] 0 01/25/2023 12:44:39 01/25/2023 13:32:49 Skin nodule 12572767 R22.9 Hyperlipidemia 06429546 E78.5 Essential hypertension 54018226 I10 Body mass index 30+ - obesity 580818433 Z68.33 [id number] Iraida Zavala [address] [place] [address] 04/27/2023 12:46:06 04/27/2023 13:40:42 Essential hypertension 10728600 I10 Gastroesop hageal reflux disease without esophagitis 689965223 K21.9 Allergic rhinitis 809573 04 J30.9 Mild inter mittent asthma 042253199 J45.20 Body mass index 30+ - obesity 848098451 Z68.33 [id number] [place] [address] 0 08/05/2023 13:14:19 08/05/2023 13:48:59 Hyperlipidemia 78918539 E78.5 Essential hypertension 15464660 I10 Fatigue 83430127 R53.83 Vitamin B deficiency 479 67795 E53.9 Vitamin D deficiency 347 04555 E55.9 Mild inter mittent asthma 772762791 J45.20 Chronic ob structive pulmonary disease 58411409 J44.9 Allergic rhinitis 766122 04 J30.9 Gastroesop hageal reflux disease without esophagitis 681405701 K21.9 Body mass index 30+ - obesity 644411810 Z68.33 [id number] [place] [address] 0 11/08/2023 12:51:16 11/08/2023 16:26:24 Abdominal pain 64316834 R10.9 Low back pain 894922620 M54.50 Body mass index 30+ - obesity 191663154 Z68.33 [id number] [place] [address] 0 02/03/2024 12:48:55 02/03/2024 13:31:56 Hyperlipidemia 68433452 E78.5 Fatigue 85167571 R53.83 Vitamin D deficiency 347 24909 E55.9 Essential hypertension 46108816 I10 Body mass index 30+ - obesity 944940648 Z68.33 Health Concerns Section Related Observation LastModified by Organization Detai ls LastModified Time None Recorded Concern Status LastModified by Organization Details LastModified Time None Recorded Advance Directives Directive N: Payers Insurance Date Sequence Insurance Name Policy Number Policy Martell Covered Member ID Martell Member ID Guarantor Name 08/01/2024 [place] RUPALI wooju [facility] Kaykay Wakefield [id number] Kaykay Wakefield 10/29/2022 1 *SELF PAY* Th lion Wakefield 07/31/2024 1 [employer] (MEDICARE REPLACEMENT/A DVANTAGE - PPO) Kaykay Wakefield [id number] Kaykay Wakefield Notes Date Note Type Note Provider Name and Address Organization Details Recorded Time 01/25/2023 text/html pt here today fo r 3 month f/u. pt states that she does not need any refills. pt states that she is doing well on current medication regime. pt states that she would like to come off of some of her medications. pt states that she would like to stop the escitalopram. pt states that she doesnt think that it is helping anyway and she is not having alot of anxiety symptoms. i told pt that is probably due to the medication. pt has taken it for around 2 years. pt does want to try and wean off. pt to take 1/2 tab q day x1 month, then 1/2 tab every other day x2 weeks, then d/c. pt voiced understanding. if pt starts to develop symptoms then to call back for further instructions or come in. pt also c/o a bump on her right hand 4th digit for the past few months that is getting bigger. denies pain. on exam, pt has a flesh colored, raised nodule, around the size of a BB to right palm of hand 4th digit. i will refer to derm for further evaluation. Iraida Zavala, HUDSON [address] [facility], [place], [address], [place] [facility] [employer] 01/25/2023 14:27:08 04/27/2023 text/html pt here for medication refills. pt states shes doing well on current medication regime. pt states that she feels like her nose is swollen and she cant breathe out of it at times and it is mostly where her eye glasses sit. on exam, pt nose does appear to be slightly swollen in the area where her eye glasses sit. pt states that she goes tomorrow to the eye doctor. i advised pt to ask the eye doctor tomorrow and see if it could be the eye glasses and if stock supervisor framed glasses would help if not i will refer to ENT. pt voiced understanding. Iraida ZavalaHUDSON [address] [place], [address], [employer] 04/27/2023 13:54:40 08/05/2023 text/html pt here today fo r medication refills. pt states shes doing well on current medication regime and has no new complaints today. ordered routine labwork. pt states that she had her mammogram earlier this year, states she has a colonoscopy yearly and declines a pap. Iraida ZavalaHUDSON [address] [place], [address], [employer], [employer] 08/05/2023 14:00:45 11/08/2023 text/html pt here today wi th c/o abd pain and low to mid back pain that has been going on for around a year but has been getting worse over the past couple of months. pt states that she has abd pain that is severe that starts at umbilicus and goes to right and it is severe and debilitating . pt states that the pain is random and not related to eating. pt has had her gallbladder removed. pt states that she has a regular BM daily and denies blood in stool. pt states that her back pain comes along with it sometimes. pt denies any cp, soa, epigastric pain, pain between shoulder blades. on exam, pt has + BS in all 4 quads, and severe tenderness to anywhere i touch on abd. and pt had to sit up shortly after laying down stating that it was causing the back pain. pt has some tenderness to bilateral lower back and mid back. denies dysuria or hematuria. abd is distended and not soft. i am going to order abd ct to r/o hernia, tumor other abd issues. pt also states that she is seeing a therapist via telehealth and she has started ketamine for her depression and she has taken 2 tablets so far and it seems to be helping. she hasnt taken buspar in 5 days. Iraida HUDSON Zavala [address] [facility], [place], [address], [employer] 11/08/2023 16:41:59 02/03/2024 text/html pt here today fo r a 3 month f/u. pt states shes doing well on current medication regime and has no new complaints today. pt asks if she could come q 6 months instead of 3 months. states that she is doing well and her bp is doing well. that is okay as long as her bp is WNL. pt voiced understanding. Iraida Zavala APRN [address] [facility], [place], [address], [facility] [employer] 02/03/2024 13:29:00 OBGyn Episode No OBEpisode recorded.
--- OUTSIDE RECORDS SUMMARY | 2025-03-12 13:25 | XMS_ITS | Encounter Summary ---
Author Organization [facility] Address [address] [place] [address] Care Team Providers Care Cable Technician Name Role Phone Ro Hines HUDSON Primary Care Provider Rita Spence DO Primary Care Provider [phone] Reason for Referral * Consultation (Routine) - Closed Specialty Diagnoses / Procedures Referred By Contac t Referred To Contact Rheumatology Diagnoses Weakness Mckayla Diaz MD [address] [facility] [address] [place] [address] Phone: tel: fax: Referral ID Status Reason Start Date Expiration Date V isits Requested Visits Authorized [id number] Closed Specialty Services Required 08/30/2024 03/01/2026 1 1 Encounter Details Date Type Department Care Team (Late st Contact Info) Description 08/30/2024 [facility] [address] [place] [address] Mckayla Diaz MD [address] [facility] [address] [place] [address] Weakness (Primary Dx) Social History Tobacco Use Types Packs/Day Years Used Date Smoking Tobacco: Never Assessed Alcohol Use Standard Drinks/Week Comments Yes 0 (1 standard drink = 0.6 oz pur e alcohol) Comments Unknown Sex and Gender Information Value Date Recorded Sex Assigned at Female 03/20/2024 3:24 PM EDT Legal Sex Female 7:51 PM EDT Gender Identity Female 12/19/2024 4:01 PM EDT Sexual Orientation Not on file documented as of this encounter Plan of Treatment Upcoming Encounters Date Type Department Care Team (Late st Contact Info) Description 06/25/2025 1:00 PM EDT Consult [facility] [address], [address] [place] [address] Darrel Cruz MD [address] [facility] [address] [place] [address] 11/20/2025 2:00 PM EST Office Visit [facility] [address] [place] [address] Betty Arthur MD [address] [facility] [address] [place] [address] Scheduled Referrals Name Type Priority Associated Diagnoses Order Schedule Ambulatory referral to Rheumatology Outpatient Referral Routine Weakness Expected: 08/30/2024 (Approximate), Expires: 02/28/2026 documented as of this encounter Visit Diagnoses Diagnosis Weakness- Primary Other malaise and fatigue documented in this encounter Care Teams Cable Technician Relationship Specialty Start Date End Date Ro Hines APRN [address] [facility] [address] [place] [address] PCP - General 02/07/21 11/19/24 Rita Spence DO [address] [place] [address] [place] [address] PCP - General 11/20/24 documented as of this encounter
--- NOTE | 2025-03-12 13:47 | EXP.PAIN.SOA ---
[facility] Disclaimer: The information contained in this section may have been updated after the patient was seen, as this information can be updated by other users. Medical History (Updated 03/08/25 @ 09:32 by Omar Cole RN) Preop examination Fibromyalgia Pre-syncope Confusion History of emphysema History of vertigo Restless leg syndrome Brain lesion Hx of breast cancer Palpitations TIA (transient ischemic attack) Left-sided weakness Aphasia Asthma COPD (chronic obstructive pulmonary disease) Anxiety Depression IBS (irritable bowel syndrome) delivery delivered Surgical History History of section History of colonoscopy Hx of cholecystectomy H/O partial mastectomy Family History Mother Brain tumor Other Blood disorder Cancer Coronary artery disease Heart attack Hypertension Social History Smoking Status: Former smoker (quit 8 years ago) alcohol intake: current alcohol intake frequency: holidays/special occasions only (very rarely) counseling provided: provider counseling substance use type: denies use current occupational status: disabled (disabled since 2018) Travel in the last 8 weeks?: None household members: spouse housing: house number of children: 2 (46 and 44 years old) current occupational exposures/hazards: No caffeine: Yes PM Subjective & Objective Subjective Subjective:: Patient is a pleasant 64-year-old female who presents today for follow-up of bilateral SI injections on 02/20/2025. Today she rates her pain a 2 out of 10. Patient does state that this injection did seem to take nearly 2 weeks to really kick in. Patient states she has just noticed more relief the last 5 days and every day does seem to get better. Patient is rating at least 70% currently and is hopeful that it will continue to provide additional relief in the next few days to come. Patient denies any new falls or injuries. Patient does state that she has had her psychological evaluation and that she has seen in the computer and it did state that she was an appropriate candidate. Patient had been previously discussed the possibility of a spinal cord stimulator trial. Patient does state that she still would like to proceed forward with this option. Patient is managed with ropinirole 0.5 mg at bedtime from our office. Patient did just get a 90-day supply at her last visit and does not need refills. Her Clarence has been reviewed and is appropriate. Review of Systems: General: No recent weight changes, no fever, no sleep disturbances Respiratory: No cough, no shortness of air, no recurring pulmonary infections Cardiovascular/peripheral vascular: No chest pain, no palpitations, no edema, no shortness of breath Gastrointestinal: No new onset incontinence, normal bowel movements reported Genitourinary: No new onset incontinence Musculoskeletal: Low back pain, leg pain Psychiatric: [Normal mood/affect] Neurological: [Denies weakness in extremities], [denies balance issues] Pain at rest (0-10 scale): 2 Objective Objective:: Physical Exam: General: Alert and oriented x3, no acute distress, pleasant and cooperative Lungs: Respirations even and unlabored, symmetrical chest expansion Eyes: PERRL Musculoskeletal: Flexion and extension of lumbar [spine] somewhat guarded secondary to pain, [antalgic gait noted] Neurological: Speech clear, no gross sensory deficit Has patient had previous pain injection?: Yes Percent improvement in pain since last injection: 70% at least Conservative treatment options previously tried: Home exercise plan Length of treatment: Longer than 12 weeks Meds Home Medications and Allergies Home Medications ?Medication ?Instructions ?Recorded ?Confirmed ?Type fluticasone fur. 100 mcg-umeclid 1 inh inhalation DAILY allergies 04/05/19 03/08/25 History 62.5 mcg-vilant 25 mcg inhalat.powder (Trelegy Ellipta) azelastine 205.5 mcg (0.15 %) 205.5 mcg intranasal BID PRN 04/18/24 03/08/25 History nasal spray allergies bisoprolol fumarate 5 mg tablet 5 mg PO DAILY 04/18/24 03/08/25 History simvastatin 20 mg tablet 20 mg PO DAILY 04/18/24 03/08/25 History albuterol sulfate 90 mcg/actuation 1 mcg inhalation DIRECTED PRN 08/09/24 03/08/25 History aerosol inhaler Asthma duloxetine 60 mg capsule,delayed 60 mg PO ONCE 11/28/24 03/08/25 History release lisinopril 20 mg tablet 20 mg PO DAILY 11/28/24 03/08/25 History ropinirole 0.5 mg tablet 0.5 mg PO HS #90 tabs 01/29/25 03/08/25 Rx rivaroxaban 20 mg tablet (Xarelto) 20 mg PO DAILY #30 tabs 03/08/25 Rx New Prescriptions to Start Prescriptions: Allergies Allergy/AdvReac Type Severity Reaction Status Date / Time metoprolol AdvReac Intermediate Dizziness Verified 03/08/25 09:18 Assessment and Plan *Assessment and plan (1) Greater trochanteric bursitis of both hips: Status: Acute Category: Medical Code(s): M70.61 - Trochanteric bursitis, right hip; M70.62 - Trochanteric bursitis, left hip (2) Degenerative disc disease, lumbar: Status: Chronic Category: Medical Code(s): M51.369 - Other intervertebral disc degeneration, lumbar region without mention of lumbar back pain or lower extremity pain (3) Lumbar radiculopathy: Status: Chronic Category: Medical Code(s): M54.16 - Radiculopathy, lumbar region Plan I did review over her psychological evaluation and she was deemed an appropriate candidate for the spinal cord stimulator trial. Patient has had significant improvement following her SI injections and does not require any additional injection therapy at this time. Patient was counseled that we will send her for evaluation with neurosurgery with Dr. Pedro Luis nowak. Patient will be sent the referral and we will follow-up with her in 1 month. Patient was reviewed over the risk and benefits of the spinal cord stimulator trial and we will most likely proceed forward with this option coming up. Patient agrees with this plan of care. Patient has been instructed to contact the clinic with any concerns before the next appointment. Dr. Holguin has reviewed this note and agrees with this plan of care. This note was dictated using voice recognition software and make contain errors or omissions. All injections are used with Lidocaine, Bupivacaine and dexamethasone. Occasionally urine drug screen is needed to verify patient's compliance with our office pain contract. This is ordered based off specific treatments related to chronic pain with the potential to abuse certain medications.
[2025-03-12 13:59] VITALS: BP 137/80; PULSE 86; RESP 14; O2SAT 96; BMI 32.0
== END 2025-03-12 23:59 | disposition home or self-care (01) ==
PROVIDERS: PCP Family Medicine; Visit Provider Nurse Practitioner Family
DX: M51.16 Intervertebral disc disorders with radiculopathy, lumbar region (principal); M70.61 Trochanteric bursitis, right hip; M70.62 Trochanteric bursitis, left hip; Z98.890 Other specified postprocedural states
CPT/HCPCS: 99212; G0463

== ENCOUNTER 2025-04-11 13:39 | Outpatient (POV) | payer MEDICARE, SELFPAY ==
--- OUTSIDE RECORDS SUMMARY | 2024-12-30 17:30 | XMS_ITS ---
Author Organization [facility] Address [address] [place] [address] Care Team Providers Care Equipment Monitor Phototypesetting Name Role Phone Paul Mclaughlin Primary Care Provider [phone], [place] Unavailable [phone] Paul Mclaughlin Unavailable Unavailable Migration, Provider Unavailable Unavailable Allergies Allergen (clinical drug ingredient) Drug/Non Drug Allergy documented on EMR Reaction Allergy Type Onset Date Status metoprolol Metoprolol dizziness Drug Allergy Activ [facility] Conversion Encounter Medications Medication SIG (Take, Route, [...] review and pick correct strength-formulatio n from [employer] options. If intended option is not shown, [...] review and pick correct strength-formulatio n from [employer] options. If intended option is not shown, discontinue and re-order from Quick Search* Active Multivitamin - 1 tab(s) orally once a day; Duration: 30 day(s) Active Encounters Encounter Location Date Provider Diagnosis [facility] [place] [address] [facility] [address] [place] [address] 12/30/2024 Provider Migration Chronic obstructive pulmonary disease, [...] * Kaykay WALTER ADOB:01/1961 (64 yo F)Acc No.[id number]:12/30/2024 Patient: Kaykay MEDINA A Provider: Eben Zhao :1960 A ge:64 Y S ex:Female Date:12/30/2024 Address:[address] [place] [address], [facility], [id number] Pcp:Paul Mclaughlin Subjective: * Chief Complaints: * [...] Electronic signature of Prov ider Migration on 04/11/2025 at 01:51 PM EDT Sign off status: Pending * Provider: Eben valdivia Migration Date: 0 12/30/2024 Generated for Jerzy gresham/Mango/Raf on: 0 04/11/2025 01:51 PM EDT
--- OUTSIDE RECORDS SUMMARY | 2025-04-11 13:51 | XMS_ITS | Encounter Summary ---
Author Organization [facility] Address [address] [place] [address] Care Team Providers Care Pharmacy Grad Intern Name Role Phone Rita Spence DO Primary Care Provider [phone] Reason for Referral * Consultation (Routine) - Authorized Specialty Diagnoses / Procedures Referred By Contac t Referred To Contact Neurology Diagnoses Weakness generalized Myotonia Mckayla Diaz MD [address] [facility] [address] [place] [address] Phone: tel: fax: Referral ID Status Reason Start Date Expiration Date Visits Requested Visits Authorized [id number] Authorized Specialty Services Required 02/02/2025 08/04/2026 1 1 Encounter Details Date Type Department Care Team (Late st Contact Info) Description 02/02/2025 [facility] [address] [place] [address] Mckayla Diaz MD [address] [facility] [address] [place] [address] Weakness generalized (Primary [...] Care Team (Late st Contact Info) Description 06/27/2025 1:00 PM EDT Consult [facility] [address] [facility], [address] [place] [address] Darrel Cruz MD [address] [place] [address] Scheduled Referrals Name Type Priority [...] documented as of this encounter Care Teams Pharmacy Grad Intern Relationship Specialty Start Date End Date Rita Spence DO [address] [place] [address] PCP - General 11/20/24 documented as of this encounter
--- OUTSIDE RECORDS SUMMARY | 2025-04-11 13:51 | XMS_ITS | Clinical Summary ---
Author Organization [facility] Address [address] [place] [address] Care Team Providers Care Cissp Name Role Phone JordyRita Primary Care Provider [phone] Allergies Active Allergy Reactions Criticality Noted Date [...] Team Description 02/02/2025 [facility] [address] [place] [address] Mckayla Diaz MD Weakness generalized (Primary Dx); Myotonia from Last 3 Months Immunizations Immunization Administration Dates Next Due Influenza, Unspecified 08/23/2017 Influenza, injectable, MDCK, preservative free, quadrivalent 07/07/2022 Influenza, injectable, quadrivalent 08/31/2018,1 10/12/2016 Influenza, injectable, quadr ivalent, preservative free 07/15/2021,06/02/2020,08/18/2019 Influenza, seasonal, injectable 08/27/2016 [place] COVID-19 Vaccine (Blue Cap) 18+ 01/01/20 21 [...] Info) Description 06/27/2025 1:00 PM EDT Consult [facility] [address] [facility], [address] [place] [address] Darrel Cruz MD [address] [place] [address] Health Maintenance Due Date Last Done Comments [facility]-Bone Density Scan 1960 [facility]-Hepatitis C Screening 1960 [facility]-Medicare Annual Wellness (AWV) 1960 [facility]-/Child/Adol SDOH Screenings 1960 [facility]- SDOH Screenings 11/29/1977 [facility]-Adult SDOH Screenings 11/29/1977 [facility]-DTaP,Tdap,and Td Vaccines (1 - Tdap) 11/29/1978 CT Colonography 11/29/2004 Colonoscopy 11/29/2004 FIT-DNA 11/29/2004 FIT 11/29/2004 FOBT 11/29/2004 Sigmoidoscopy 11/29/2004 [facility]-Colorectal Cancer Screening 11/29/2004 [facility]-Lung Cancer Screening 11/29/2009 [facility]-Pap Smear 04/05/2010 04/05/2007 [facility]-Cervical Cancer Screening 04/05/2012 [facility]-HPV/Cotest 04/05/2012 04/05/2007 [id number] Vaccine ( season) 2025 08/28/2024, 07/09/2023, 04/16/2022, Additional history exists [facility]-Influenza Vaccine (#1) 05/28/202507/07, 07/15/2021, 06/02/2020, Additional history exists [facility]-Depression Screening [...] Narrative SUNQUEST - 04/06/2007 10:27 AM EDT [facility] MR #: [id number] [place] [id number] (Age: 46) FW Collect Date: 04/05/2007 00:00 Receipt Date: 04/06/2007 07:48 Page 1 DEPARTMENT OF PATHOLOGY AND LABORATORY MEDICINE CYTOPATHOLOGY REPORT Email: [email or web address] [phone] ATTENDING MD/Practitioner: Isis Mitchell MD Service: [facility] Location: [facility] OTHER MD(S): Nazario Pires MD Reported: 04/06/2007 [...] PERSONAL HISTORY OF MALIGNANT NEOPLASM F: A; 60950 ASP INTER, 96219 FNA PATHO SNOMED CODES: A; D26436 [id number] [id number] P1149 A resident has participated in this service. A pathologist has performed and is responsible for the reported pathologic evaluation. us Historical Provider LAB PATHOLOGY ORDERABLES Final Result SUNQUEST from Last 3 Months or Most Recently Relevant to Health Maintenance Insurance [facility] MEDICARE Care Teams Cissp Relationship Specialty Start Date End Date Rita Spence DO [address] [place] [address] [place] [address] PCP - General 11/20/24
--- OUTSIDE RECORDS SUMMARY | 2025-04-11 13:51 | XMS_ITS | Patient Health Record ---
Author Organization [facility] Address [address] [place] [address] [place] [address] Care Team Providers Care Wood Boring Machine Operator Name Role Phone Paul Mclaughlin Primary Care Provider McNees, Ro Unavailable [phone] Paul Mclaughlin Unavailable Unavailable Migration, Provider Unavailable [...] a day; Duration: 90 days 06/20/2021 Active Colestipol HCl 1 GM 1 tab(s) every monring and 2 tabs at bedtime orally 2 times a day Active Escitalopram Oxalate 10 MG 1 tab(s) orally once a day; Duration: 30 day(s) Active Albuterol Sulfate (2.5 MG/3ML) 0.083% 3 mL by nebulizer every 6 hours prn Active FiberCon 625 MG 2 tabs orally daily Active Bisoprolol Fumarate 5 MG 1 tab(s) orally once a day; Duration: 90 days Active Align 4 MG 1 [...] day (at bedtime); Duration: 90 days Active ASTELIN 2 SPRAY TWICE [...] times a day; Duration: 90 days Active Multivitamin - 1 tab(s) orally once a day; Duration: 30 day(s) Active Omeprazole 20 MG 1 cap(s) orally once a day; Duration: 90 days Active IBU 600 MG 1 tab(s) orally three times a day prn; Duration: 30 day(s) 10/13/2019 Active PROAIR HFA 90 [...] Problem Status W/U Status Risk Notes Problem Mixed hyperlipidemia (293085941) Mixed hyperlipidemia (E78.2) Active confirmed Problem Irritable bowel syndrome with diarrhea (510058245) Irritable bowel syndrome with diarrhea (K58.0) Active confirmed Problem Sciatica (94059942) Lumbago with sciatica, right side (M54.41) Active confirmed Problem Sciatica (71072788) Lumbago with sciatica, left side (M54.42) Active confirmed Problem Mixed anxiety and depressive disorder (514986447) Depression with anxiety (F41.8) Active confirmed Problem Paresthesia (50099669) Paresthesia (R20.2) Active confirmed Problem Vitamin D deficiency (16506300) Vitamin D deficiency (E55.9) Active confirmed Problem Essential hypertension (07186319) Essential hypertension (I10) Active confirmed Problem Rupture of right rotator cuff (4581826639583833 3) Rotator cuff syndrome of right shoulder (M75.101) Active confirmed Problem Obese class I (498212814427789) BMI 33.0-33.9,adult (Z68.33) Active confirmed Problem Chronic pain (02232532) Other chronic pain (G89.29) Active confirmed Problem BMI 30+ - obesity (204783912) BMI 32.0-32.9,adult (Z68.32) Active confirmed Problem COPD - Chronic obstructive pulmonary disease (03835359) Chronic obstructive pulmonary disease, unspecified COPD type (J44.9) Active confirmed Problem Personal history of primary malignant neoplasm of breast (376464161) History of breast cancer (Z85.3) Active confirmed Problem Degeneration of lumbar intervertebral disc (79802513) Lumbar degenerative disc disease (M51.36) Active confirmed Problem Left rotator cuff syndrome (403572476462744) Rotator cuff syndrome of left shoulder (M75.102) Active confirmed Problem Urinary incontinence (414953096) Urinary incontinence, unspecified type (R32) Active confirmed Problem Incontinence of feces (24070762) Incontinence of feces, unspecified fecal incontinence type (R15.9) Active confirmed Problem Multiple premature ventricular complexes (disorder) (798803360) PVC's (premature ventricular contractions) (I49.3) Active confirmed Encounters Encounter Location Date Provider Diagnosis [facility] [address] [place] [address] [facility] [address] [place] [address] 12/30/2024 Provider Migration Chronic obstructive pulmonary disease, unspecified COPD type J44.9 Assessments Encounter Date Diagnosis (ICD Code) Assessment Notes Treatment Notes Treatment Clinical Notes Section Notes 12/30/2024 Chronic obstructive pulmonary disease, unspecified COPD type (ICD-10 - J44.9) Plan Of Treatment Pending Test Test Name Order Date CT Scan : Chest, Without Contrast 2016 Physical Therapy 11/01/2019 Mammogram : Bilateral 08/18/2019 Mammogram : Bilateral 04/30/2022 Holter Monitor, 48 hour 12/28/2018 H-CMP 08/12/2017 H-LIPID PANEL 08/12/2017 Echocardiogram - Bubble Study 12/28/2018 M-Comprehensive Metabolic Panel 12/28/19 M-Hemoglobin A1C 12/27/2020 M-Lipid Panel 12/27/2020 M-Diarrhea Panel, PCR 08/15/2021 M-Vitamin B12 07/04/2021 M-Vitamin D 25 Hydroxy 07/04/2021 Insurance Providers Payer Name Payer Address Payer Phone Subscriber Number Group Number Insured Name Patient Relationship to Insured Coverage Start Date Coverage End Date [employer] MEDICARE [address] [address] [place] [address] [id number] Kaykay Valencia Self - patient is the [...]
--- OUTSIDE RECORDS SUMMARY | 2025-04-11 13:51 | XMS_ITS | Referral Summary ---
Author Organization [employer] ([place], [place], [place], [place]) Address [address] [place] [address] Care Team Providers Care Stacker Attendant Name Role Phone JordyRita Amber TERAN Primary Care Provider [phone] Allergies Active Allergy Reactions Criticality Noted Date Comments Metoprolol Anxiety,Other (See Comments),Palpitations,Photo sensitivity,Shortness Of Breath High 11/14/2017 Pt does not know Medications bisoprolol (ZEBETA) 5 MG tablet Take 1 tablet (5 mg total) by mouth daily. Active Cymbalta 60 mg capsule Take 1 capsule (60 mg total) by mouth daily. 10/13/2024 Active Trelegy Ellipta 100-62.5-25 mcg dsdv Inhale 1 puff by mouth daily. Active lisinopriL (ZESTRIL) 20 MG tablet Take 1 tablet (20 mg total) by mouth daily. Active Xarelto 20 mg tablet Take 1 tablet (20 mg total) by mouth nightly. 11/03/2024 Active simvastatin (ZOCOR) 20 MG tablet Take 1 tablet (20 mg total) by mouth nightly. Active rOPINIRole (REQUIP) 0.5 MG tablet Take 1 tablet (0.5 mg total) by mouth nightly. Active Active Problems Problem Noted Date Diagnosed Date Abnormal electroencephalogram (EEG) 11/23/2024 Nonepileptic episode 11/21/2024 Social History Tobacco Use Types Packs/Day Years Used Date Smoking Tobacco: Former Cigarettes 2 40.6 0 11/25/1976 - 07/07/2017 Smokeless Tobacco: Never Tobacco Cessation:Counseling Given: Not Answered Alcohol Use Standard Drinks/Week Comments Not Currently 0 (1 standard drink = 0.6 oz pur e alcohol) Utilities Answer Date Recorded In the past 12 months, has t he electric, gas, oil, or water company threatened to shut off services in your home? No 11/21/2024 Interpersonal Safety Answer Date Record ed How often does anyone, margaux bueno family and friends, physically hurt you? Never 11/21/2024 How often does anyone, margaux bueno family and friends, insult or talk down to you? Never 11/21/2024 How often does anyone, margaux bueno family and friends, threaten you with harm? Never 11/21/2024 How often does anyone, margaux bueno family and friends, scream or curse at you? Never 11/21/2024 Housing Stability Answer Date Recorded What is your living situation today? I have a [facility] place to live 11/21/[address] you li ve. Do you have problems with any of the following? None of the above 11/21/2024 Food Insecurity Answer Date Recorded Within the past 12 months, y ou worried that your food would run out before you got money to buy more. Never true 11/21/2024 Within the past 12 months, t he food you bought just didn't last and you didn't have money to get more. Never true 11/21/2024 Transportation Needs Answer Date Record ed In the past 12 months, has l ack of reliable transportation kept you from medical appointments, meetings, work or from getting things needed for daily living? No 11/21/2024 Financial Resource Strain Answer Date R ecorded How hard is it for you to pa y for the very basics like food, housing, medical care, and heating? Would you say it is: Not hard at all 11/21/2024 Employment Answer Date Recorded Do you want help finding or keeping work or a job? I do not need or want help 11/21/2024 Family and Community Support Answer Valdo e Recorded If for any reason you need h elp with day-to-day activities such as bathing, preparing meals, shopping, managing finances, etc., do you get the help you need? I don't need any help 11/21/2024 Feeling Lonely or Isolated 0 11/21 Educational Attainment Answer Date Daniel rded Do you speak a language other than Greek at [facility]? No 11/21/2024 Do you want help with school or training? For example, starting or completing job training or getting a high school diploma, GED or equivalent. No 11/21/2024 Physical Activity Answer Date Recorded Number of minutes of exercise per week 90 11/21/2024 Self Management Answer Date Recorded Because of a physical, menta l, or emotional condition, do you have serious difficulty concentrating, remembering, or making decisions? (5 years or older) No 11/21/2024 Because of a physical, menta l, or emotional condition, do you have difficulty doing errands alone such as visiting a doctor's office or shopping? (15 years or older) No 11/21/2024 Substance Use Answer Date Recorded How many times in the past y ear have you used prescription drugs for non-medical reasons? Never 11/21/2024 How many times in the past year have you used il legal drugs? 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 2ND SHIFT Gender Identity Not on file Sexual Orientation Not on file Last Filed Vital Signs Vital Sign Reading Time Taken Comments Blood Pressure 122/79 11/23/2024 5:55 AM EST Pulse 83 11/23/2024 5:55 AM EST Temperature 36.3 C (97.3 F) 11/23/2024 5:55 AM EST Respiratory Rate 18 11/23/2024 5:55 AM EST Oxygen Saturation 96% 11/23/2024 5:55 AM EST Inhaled Oxygen Concentration - - Weight 82.7 kg (182 lb 4.8 oz) 11/21/2024 10:05 AM EST Height 157.5 cm (5' 2 ) 11/21/2024 10:05 AM EST Body Mass Index 33.34 11/21/2024 10:05 AM EST Plan of Treatment Not on file Insurance [facility] MEDIC[facility] PPO Advance Directives For more information, please contact: [phone] * Full Code (Latest Code Status on File) Date Activated Date Inactivated Comments 11/21/2024 9:28 AM 11/23/2024 4:12 PM Care Teams Stacker Attendant Relationship Specialty Start Date End Date Rita Spence, DO [address] [facility] [address] [place] [address] PCP - General Family Medicine 11/21/24
--- OUTSIDE RECORDS SUMMARY | 2025-04-11 13:51 | XMS_ITS | Clinical Summary ---
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 Name Role Phone Rita Spence DO Primary Care Provider [phone] Allergies Active Allergy Reactions Criticality Noted Date [...] Abnormal electroencephalogram (EEG) 11/23/2024 Nonepileptic episode 11/21/2024 Family History Medical History Relation Name Comments ADD / ADHD Brother 1 Harvey [place] Anxiety disorder Brother 1 Harvey Jammie Diabetes Brother 2 Glenn 1/2 brother Anxiety disorder Father Don Stroke Father Don Diabetes Maternal Grandmother Richelle Anxiety disorder Mother Estelle Heart disease Mother Estelle Cad Seizures Mother Estelle Cancer Paternal Aunt Clementina Anxiety disorder Sister Martha Depression Sister Martha Relation Name Status Comments Brother 1 Harvey Jammie Brother 2 Glenn 09/28 brother Father Don Maternal Grandmother Richelle Mother Estelle Paternal Aunt Clementina Sister Martha Social History Tobacco Use Types Packs/Day Years [...] your living situation today? I have a [facility] place to live 11/21/2024 Think about [...] Do you speak a language other than Polish at [facility]? 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 Gender Identity Not on file Sexual Orientation [...] 11/21/2024 10:05 AM EST Plan of Treatment Health Maintenance Due Date Last Done Comments CT Colonography 1959 Colonoscopy 1959 Colorectal Cancer Screening 1959 DXA SCAN 1959 FOBT/FIT 1959 Fit-DNA (Cologuard) 1959 Sigmoidoscopy 1959 Depression Screening (12+) 1971 Tobacco Cessation Counseling and Screening (12+) 1971 HIV Screening 11/29/1974 Hepatitis C Screening 11/29/1977 DTAP/TDAP/TD VACCINES (1 - Tdap) 11/29/1978 Pap Smear 11/29/1980 Breast Cancer Screening 1999 Lipid Panel 11/29/2004 Lung cancer screening 11/29/2009 COVID-19 VACCINE ( season) 2024, 01/02/2021 Falls Risk Screening 09/27/2024 Medicare IPPE (Welcome to Medicare) [id number] 09/27/2024 Influenza Vaccine (#1) 2025 07/07/2022 Respiratory Syncytial Virus (RSV) Adult or (1 - 1-dose 75+ series) 11/29/2034 Pneumococcal 50+ years Completed 07/22/2022 Shingles Vaccine (Zoster) Completed 12/30/2023, 09/2023 Insurance [facility] MEDIC[facility] PPO Advance Directives For more information, please contact: [phone] * Full Code (Latest Code Status on File) Date Activated Date Inactivated Comments 11/21/2024 9:28 AM 11/23/2024 4:12 PM Care Teams Vegetable Cutter Relationship Specialty Start Date End Date Rita Spence, DO [address] [facility] [address] [place] [address] PCP - General Family Medicine 11/21/24
--- OUTSIDE RECORDS SUMMARY | 2025-04-11 13:51 | XMS_ITS | Encounter Summary ---
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 Name Role Phone Rita Spence Primary Care Provider [phone] Encounter Details Date Type Department Care Team (Late Contact Info) Description 12/01/2024 Community [facility] Community Practice [address] [place] [address] Mckayla Diaz MD [address] [facility] [address] [place] [address] Social History Tobacco Use Types [...] Department Care Team (Late Contact Info) Description 06/27/2025 1:00 PM EDT Consult [facility] [address] [facility], [address] [place] [address] Darrel Cruz MD [address] [facility] [address] [place] [address] documented as of this encounter Visit Diagnoses [...] documented as of this encounter Care Teams Golf Club Head Inspector Relationship Specialty Start Date End Date Rita Spence DO [address] [place] [address] PCP - General 11/20/24 documented as of this encounter
--- OUTSIDE RECORDS SUMMARY | 2025-04-11 13:52 | XMS_ITS | Data Portability ---
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 Refilled as below. Discussed plan with patient, who expressed understanding . Follow up as noted below. [email or web address] Not available 11/08/2023 13:45:14 Plan of Treatment Reminders Order Date Submit Date Provider Last Modified By Organization Details Last Modified Time Details Appointments None recorded. Lab vitamin D, 25-hydroxy, total, serum 2023 024 [facility], [address], [place], [address], 4 06:45:59 lipid panel, serum 2023 024 [facility], [address], [place], [address], 4 06:45:57 CBC w/ auto diff 2023 024 [facility], [address], [place], [address], 4 06:45:58 CMP, serum or plasma 2023 024 [facility], [address], [place], [address], 4 06:45:58 TSH, serum or plasma 2023 024 [facility], [address], [place], [address], 4 06:45:59 lipid panel, serum 2022 023 [facility], [address], [place], [address], 3 04:35:10 TSH, serum or plasma 2022 023 [facility], [address], [place], [address], 3 04:35:13 vitamin B12, serum 2022 023 [facility], [address], [place], [address], 3 04:35:12 vitamin D, 25-hydroxy, total, serum 2022 023 [facility], [address], [place], [address], 3 04:35:13 CMP, serum or plasma 2022 023 [facility], [address], [place], [address], 3 04:35:11 CBC w/ auto diff 2022 023 [facility], [address], [place], [address], 3 04:35:[address] referral - first available appt please 2022 023 [facility], [address], [place], [address], 3 11:48:31 Procedures None recorded. Surgeries None recorded. Imaging CT, abdomen + pelvis, w/o contrast 2023 024 [facility], [address], [place], [address], 4 16:59:42 Medication Orders azelastine 137 mcg (0.1 %) nasal spray 2022 023 [facility], [address], [place], [address], 3 13:58:26 Flonase Allergy Relief 50 mcg/actuati on nasal spray,suspe nsion 2022 023 [facility], [address] , [place], [address], 3 13:58:22 albuterol sulfate HFA 90 mcg/actuati on aerosol inhaler 2022 023 [facility], [address] [facility] [address], [place], [address], 3 13:58:24 simvastatin 20 mg tablet 2022 023 [facility], [address] , [place], [address], 3 13:58:22 omeprazole 20 mg capsule,del ayed release 2022 023 [email or web address] 1 [facility], [address] , [place], [address], 4 13:07:42 bisoprolol fumarate 5 mg tablet 2022 023 [facility], [address] [facility] [facility] [address], [place], [address], 3 13:58:26 lisinopril 20 mg tablet 2022 023 [facility], [address], [place], [address], 3 13:58:25 albuterol sulfate 1.25 mg/3 mL solution for nebulizatio n 2022 023 [facility], [address], [place], [address], 3 13:58:25 Flonase Allergy Relief 50 mcg/actuati on nasal spray,suspe nsion 2022 023 [facility], [address], [place], [address], 3 13:40:25 azelastine 137 mcg (0.1 %) nasal spray 2022 023 [facility], [address], [place], [address], 3 13:40:28 omeprazole 20 mg capsule,del ayed release 2022 023 [email or web address] 1 [facility], [address], [place], [address], 4 13:07:42 bisoprolol fumarate 5 mg tablet 2022 023 [facility], [address], [place], [address], 3 13:40:26 albuterol sulfate 1.25 mg/3 mL solution for nebulizatio n 2022 023 [facility], [address], [place], [address], 3 13:40:25 Patient TargetsNo targets recorded. Patient InstructionsNo instructions recorded. 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 first available appt please Referring Physician: Iraida Zavala, Family Medicine, Encounter Date: 01/25/2023 Results Created Date Observation Date Name Description Value Unit Range Abnormal Flag Note LastModifiedBy Organization Detail LastModifiedTime 08/05/2008/06/2023 LIPID PANEL , STAND SHARON cholesterol, total 194 mg/dL <200 normal Not Available [facility] [address], [place], [address], 08/06/2023 07:59:33 08/05/2008/06/2023 LIPID PANEL , STAND SHARON HDL cholesterol 89 mg/dL > or = 50 normal Not Available [facility] [address], [place], [address], 08/06/2023 07:59:33 08/05/20 23 08/06/2023 LIPID PANEL , STAND SHARON triglyceride s 119 mg/dL <150 normal Not Available [facility] [address], [place], [address], 08/06/2023 07:59:33 08/05/2008/06/2023 LIPID PANEL , STAND SHARON LDL-choleste rol 83 mg/dL _(autumn c) normal Refer ence range : <100 Keny able range <100 mg/dL for prima ry preve ntion ; <70 mg/dL for patie nts with CHD or diabe tic patie nts with > or = 2 CHD risk facto rs. LDL-C is now calcu lated using the Pari n-Hop kins helneu herber n, which is a valid ated novel shayna garg accur acy than the Fried aydee equat ion in the estim ation of LDL-C . Pari jarrell SS et al. NICOLE. 2013; 310(1 9): 2061- 2068 (http ://ed ucati on.Qu estDi agnos tics. com/f aq/FA Q164) Not Available [facility] [address] [facility] [place] [place], [address], 08/06/2023 07:59:33 08/05/20 23 08/06/2023 LIPID PANEL , STAND SHARON chol/HDLC ratio 2.2 (calc ) <5.0 normal Not Available [facility] [address] [facility] [facility], [place], [address], 08/06/2023 07:59:33 08/05/20 23 08/06/2023 LIPID PANEL , STAND SHARON non HDL cholesterol 105 mg/dL _(autumn c) <130 normal For patie nts with diabe tl plus 1 major ASCVD risk facto r, treat ing to a non-H DL-C goal of <100 mg/dL (LDL- C of <70 mg/dL ) is consi dered a thera peuti c optio n. Not Available [facility] [address] [facility] [place], [address], 08/06/2023 07:59:33 08/05/20 23 08/06/2023 COMPR EHENS ELIF METAB OLIC PANEL glucose 99 mg/dL 65-99 normal Fasti ng refer ence inter familia Not Available [facility] [address] [facility] [place], [address], 08/06/2023 07:59:33 08/05/20 23 08/06/2023 COMPR EHENS ELIF METAB OLIC PANEL urea nitrogen (BUN) 14 mg/dL 7-25 normal Not Available [facility] [address] [facility] [place], [address], 08/06/2023 07:59:33 08/05/20 23 08/06/2023 COMPR EHENS ELIF METAB OLIC PANEL creatinine 0.48 mg/dL 0.50-1 .05 low Not Available [facility] [address] [place], [address], 08/06/2023 07:59:33 08/05/20 23 08/06/2023 COMPR EHENS ELIF METAB OLIC PANEL eGFR 106 mL/mi n/1.7 3m2 > or = 60 normal Not Available [facility] [address] [place], [address], 08/06/2023 07:59:33 08/05/20 23 08/06/2023 COMPR EHENS ELIF METAB OLIC PANEL BUN/creatini ne ratio 29 (calc ) 6-22 high Not Available [facility] [address] [place], [address], 08/06/2023 07:59:33 08/05/20 23 08/06/2023 COMPR EHENS ELIF METAB OLIC PANEL sodium 139 mmol/ L 135-14 6 normal Not Available [facility] [address] [place], [address], 08/06/2023 07:59:33 08/05/20 23 08/06/2023 COMPR EHENS ELIF METAB OLIC PANEL potassium 4.6 mmol/ L 3.5-5. 3 normal Not Available [facility] [address] [place], [address], 08/06/2023 07:59:33 08/05/20 23 08/06/2023 COMPR EHENS ELIF METAB OLIC PANEL chloride 104 mmol/ L 98-110 normal Not Available [facility] [address] [place] [place], [address], 08/06/2023 07:59:33 08/05/20 23 08/06/2023 COMPR EHENS ELIF METAB OLIC PANEL carbon dioxide 27 mmol/ L 20-32 normal Not Available [facility] [address] [place], [address], 08/06/2023 07:59:33 08/05/20 23 08/06/2023 COMPR EHENS ELIF METAB OLIC PANEL calcium 9.6 mg/dL 8.6-10 .4 normal Not Available [facility] [address] [facility] [place], [address], 08/06/2023 07:59:33 08/05/20 23 08/06/2023 COMPR EHENS ELIF METAB OLIC PANEL protein, total 6.8 g/dL 6.1-8. 1 normal Not Available [facility] [address] [facility] [place] [place], [address], 08/06/2023 07:59:33 08/05/20 23 08/06/2023 COMPR EHENS ELIF METAB OLIC PANEL albumin 4.4 g/dL 3.6-5. 1 normal Not Available [facility] [address] [facility] [place], [address], 08/06/2023 07:59:33 08/05/20 23 08/06/2023 COMPR EHENS ELIF METAB OLIC PANEL globulin 2.4 g/dL_ (calc ) 1.9-3. 7 normal Not Available [facility] [address] [facility] [place], [address], 08/06/2023 07:59:33 08/05/20 23 08/06/2023 COMPR EHENS ELIF METAB OLIC PANEL albumin/glob ulin ratio 1.8 (calc ) 1.0-2. 5 normal Not Available [facility] [address] [facility] [place], [address], 08/06/2023 07:59:33 08/05/20 23 08/06/2023 COMPR EHENS ELIF METAB OLIC PANEL bilirubin, total 0.4 mg/dL 0.2-1. 2 normal Not Available [facility] [address] [facility] [place], [address], 08/06/2023 07:59:33 08/05/20 08/06/2023 COMPR EHENS ELIF METAB OLIC PANEL alkaline phosphatase 100 U/L 37-153 normal Not Available [facility] [address] [place], [address], 08/06/2023 07:59:33 08/05/20 23 08/06/2023 COMPR EHENS ELIF METAB OLIC PANEL AST 23 U/L 10-35 normal Not Available [facility] [address] [place], [address], 08/06/2023 07:59:33 08/05/2008/06/2023 COMPR EHENS ELIF METAB OLIC PANEL ALT 25 U/L 6-29 normal Not Available [facility] [address] [place], [address], 08/06/2023 07:59:33 08/05/20 23 08/06/2023 CBC (INCL UDES DIFF/ PLT) white blood cell count 7.2 thous and/u L 3.8-10 .8 normal Not Available [facility] [address] [place], [address], 08/06/2023 04:35:12 08/05/2008/06/2023 CBC (INCL UDES DIFF/ PLT) red blood cell count 4.58 jimmy on/uL 3.80-5 .10 normal Not Available [facility] [address] [place], [address], 08/06/2023 04:35:12 08/05/2008/06/2023 CBC (INCL UDES DIFF/ PLT) hemoglobin 14.0 g/dL 11.7-1 5.5 normal Not Available [facility] [address], [place], [address], 08/06/2023 04:35:12 08/05/20 23 08/06/2023 CBC (INCL UDES DIFF/ PLT) hematocrit 41.7 % 35.0-4 5.0 normal Not Available [facility] [address] [facility] [place], [address], 08/06/2023 04:35:12 08/05/2008/06/2023 CBC (INCL UDES DIFF/ PLT) MCV 91.0 fL 80.0-1 00.0 normal Not Available [facility] [address] [facility] [address] [facility] [place], [address], 08/06/2023 04:35:12 08/05/2008/06/2023 CBC (INCL UDES DIFF/ PLT) MCH 30.6 pg 27.0-3 3.0 normal Not Available [facility] [address] [facility] [place], [address], 08/06/2023 04:35:12 08/05/2008/06/2023 CBC (INCL UDES DIFF/ PLT) MCHC 33.6 g/dL 32.0-3 6.0 normal Not Available [facility] [address] [facility] [place], [address], 08/06/2023 04:35:12 08/05/2008/06/2023 CBC (INCL UDES DIFF/ PLT) RDW 13.2 % 11.0-1 5.0 normal Not Available [facility] [address] [facility] [place], [address], 08/06/2023 04:35:12 08/05/2008/06/2023 CBC (INCL UDES DIFF/ PLT) platelet count 323 thous and/u L 140-40 0 normal Not Available [facility] [address] [facility] [place], [address], 08/06/2023 04:35:12 08/05/20 23 08/06/2023 CBC (INCL UDES DIFF/ PLT) MPV 8.7 fL 7.5-12 .5 normal Not Available [facility] [address], [place], [address], 08/06/2023 04:35:12 08/05/20 23 08/06/2023 CBC (INCL UDES DIFF/ PLT) absolute neutrophils 4680 cells /uL 1500-7 800 normal Not Available [facility] [address], [place], [address], 08/06/2023 04:35:12 08/05/20 23 08/06/2023 CBC (INCL UDES DIFF/ PLT) absolute lymphocytes 1778 cells /uL 850-39 00 normal Not Available [facility] [address], [place], [address], 08/06/2023 04:35:12 08/05/2008/06/2023 CBC (INCL UDES DIFF/ PLT) absolute monocytes 576 cells /uL 200-95 0 normal Not Available [facility] [address], [place], [address], 08/06/2023 04:35:12 08/05/20 23 08/06/2023 CBC (INCL UDES DIFF/ PLT) absolute eosinophils 122 cells /uL 15-500 normal Not Available [facility] [address], [place], [address], 08/06/2023 04:35:12 08/05/20 23 08/06/2023 CBC (INCL UDES DIFF/ PLT) absolute basophils 43 cells /uL 0-200 normal Not Available [facility] [address], [place], [address], 08/06/2023 04:35:12 08/05/20 23 08/06/2023 CBC (INCL UDES DIFF/ PLT) neutrophils 65 % normal Not Available [facility] [address], [place], [address], 08/06/2023 04:35:12 08/05/20 23 08/06/2023 CBC (INCL UDES DIFF/ PLT) lymphocytes 24.7 % normal Not Available [facility] [address] [place], [address], 08/06/2023 04:35:12 08/05/20 23 08/06/2023 CBC (INCL UDES DIFF/ PLT) monocytes 8.0 % normal Not Available [facility] [address] [place], [address], 08/06/2023 04:35:12 08/05/2008/06/2023 CBC (INCL UDES DIFF/ PLT) eosinophils 1.7 % normal Not Available [facility] [place], [address], 08/06/2023 04:35:12 08/05/20 23 08/06/2023 CBC (INCL UDES DIFF/ PLT) basophils 0.6 % normal Not Available [facility] [place], [address], 08/06/2023 04:35:12 08/05/2008/06/2023 VITAM IN B12 vitamin B12 413 pg/mL 200-11 00 normal Not Available [facility] [place], [address], 08/06/2023 07:21:41 08/05/2008/06/2023 TSH W/REF KELSY TO FT4 TSH w/reflex to FT4 1.27 mIU/L 0.40-4 .50 normal Not Available [facility] [address] [place], [address], 08/06/2023 07:21:42 08/05/20 23 08/06/2023 VITAM IN [...] /MS is recom heather d: order code 10631 (tyron ents >2yrs ). See Note 1 Note 1 For addit ional infor atilio naranjo refer to http: //[facility] kiera Serra stDia gnost ics.c om/fa q/FAQ 199 (This link is being provi ded for infor bonnie mayers/ braden ba purpo ses only. ) Not Available [facility] [address] [facility], [place], [address], 08/06/2023 07:21:42 10/28/19 24 10/29/2023 VITAM IN [...] /MS is recom heather d: order code 16801 (tyron ents >2yrs ). See Note 1 Note 1 For addit ional infor atilio naranjo refer to http: //[facility] kiera Serra stDia gnost ics.c om/fa q/FAQ 199 (This link is being provi ded for infor bonnie nal/ educa lorena l purpo ses only. ) Not Available [facility] [address] [facility], [place], [address], 10/29/2023 09:52:54 02/03/20 24 02/04/2024 LIPID PANEL , STAND SHARON cholesterol, total 156 mg/dL <200 normal Not Available [facility] [address] [facility], [place], [address], 02/04/2024 10:14:33 02/03/20 24 02/04/2024 LIPID PANEL , STAND SHARON HDL cholesterol 74 mg/dL > or = 50 normal Not Available [facility] [address] [facility] [facility], [place], [address], 02/04/2024 10:14:33 02/03/20 24 02/04/2024 LIPID PANEL , STAND SHARON triglyceride s 148 mg/dL <150 normal Not Available [facility] [address] [facility] [address] [facility], [place], [address], 02/04/2024 10:14:33 02/03/20 24 02/04/2024 LIPID PANEL [...] calcu lated using the Pari n-Hop kins tyler craven n, which is a valid ated novel shayna hart than the Fried aydee thackerat ion in the estim ation of LDL-C . Pari jarrell SS et al. NICOLE. 2013; 310(1 9): 2061- 2068 (http ://ed bettieati on.Qu estKim nicolasAseptias. com/f aq/FA Q164) Not Available [facility] [address] [facility] [place], [address], 02/04/2024 10:14:33 02/03/20 24 02/04/2024 LIPID PANEL , STAND SHARON chol/HDLC ratio 2.1 (calc ) <5.0 normal Not Available [facility] [address] [facility], [place], [address], 02/04/2024 10:14:33 02/03/20 24 02/04/2024 LIPID PANEL , STAND SHARON non HDL cholesterol 82 mg/dL _(autumn c) <130 normal For patie nts with diabe tl plus 1 major ASCVD risk facto r, treat ing to a non-H DL-C goal of <100 mg/dL (LDL- C of <70 mg/dL ) is consi dered a thera peuti c optio n. Not Available [facility] [address] [place], [address], 02/04/2024 10:14:33 02/03/20 24 02/04/2024 COMPR EHENS ELIF METAB OLIC PANEL glucose 105 mg/dL 65-99 high Fasti ng refer ence inter familia For someo ne witho ut known diabe tl, a gluco se value betwe en 100 and 125 mg/dL is consi stent with predi abete s and shoul d be confi rmed with a follo w-up test. Not Available [facility] [address] [facility] [place], [address], 02/04/2024 10:14:34 02/03/20 24 02/04/2024 COMPR EHENS ELIF METAB OLIC PANEL urea nitrogen (BUN) 14 mg/dL 7-25 normal Not Available [facility] [address] [facility], [place], [address], 02/04/2024 10:14:34 02/03/20 24 02/04/2024 COMPR EHENS ELIF METAB OLIC PANEL creatinine 0.56 mg/dL 0.50-1 .05 normal Not Available [facility] [address] [facility] [address] [facility] [place], [address], 02/04/2024 10:14:34 02/03/20 24 02/04/2024 COMPR EHENS ELIF METAB OLIC PANEL eGFR 102 mL/mi n/1.7 3m2 > or = 60 normal Not Available [facility] [address] [place], [address], 02/04/2024 10:14:34 02/03/20 24 02/04/2024 COMPR EHENS ELIF METAB OLIC PANEL BUN/creatini ne ratio SEE NOTE: (calc ) 6-22 Not Repor jenni: BUN and Creat inine are withi n refer ence range . Not Available [facility] [address] [place], [address], 02/04/2024 10:14:34 02/03/20 24 02/04/2024 COMPR EHENS ELIF METAB OLIC PANEL sodium 132 mmol/ L 135-14 6 low Not Available [facility] [address] [place], [address], 02/04/2024 10:14:34 02/03/20 24 02/04/2024 COMPR EHENS ELIF METAB OLIC PANEL potassium 4.4 mmol/ L 3.5-5. 3 normal Not Available [facility] [address] [place], [address], 02/04/2024 10:14:34 02/03/20 24 02/04/2024 COMPR EHENS ELIF METAB OLIC PANEL chloride 96 mmol/ L 98-110 low Not Available [facility] [address] [place], [address], 02/04/2024 10:14:34 02/03/20 24 02/04/2024 COMPR EHENS ELIF METAB OLIC PANEL carbon dioxide 26 mmol/ L 20-32 normal Not Available [facility] [address] [facility] [address] [facility] [place], [address], 02/04/2024 10:14:34 02/03/20 24 02/04/2024 COMPR EHENS ELIF METAB OLIC PANEL calcium 9.8 mg/dL 8.6-10 .4 normal Not Available [facility] [address] [facility] [address] [facility] [place], [address], 02/04/2024 10:14:34 02/03/20 24 02/04/2024 COMPR EHENS ELIF METAB OLIC PANEL protein, total 6.8 g/dL 6.1-8. 1 normal Not Available [facility] [address] [facility] [facility] [place], [address], 02/04/2024 10:14:34 02/03/20 24 02/04/2024 COMPR EHENS ELIF METAB OLIC PANEL albumin 4.5 g/dL 3.6-5. 1 normal Not Available [facility] [address] [facility] [place], [address], 02/04/2024 10:14:34 02/03/20 24 02/04/2024 COMPR EHENS ELIF METAB OLIC PANEL globulin 2.3 g/dL_ (calc ) 1.9-3. 7 normal Not Available [facility] [address] [facility] [address] [facility] [place], [address], 02/04/2024 10:14:34 02/03/20 24 02/04/2024 COMPR EHENS ELIF METAB OLIC PANEL albumin/glob ulin ratio 2.0 (calc ) 1.0-2. 5 normal Not Available [facility] [address] [place], [address], 02/04/2024 10:14:34 02/03/20 24 02/04/2024 COMPR EHENS ELIF METAB OLIC PANEL bilirubin, total 0.3 mg/dL 0.2-1. 2 normal Not Available [facility] [address] [place], [address], 02/04/2024 10:14:34 02/03/20 24 02/04/2024 COMPR EHENS ELIF METAB OLIC PANEL alkaline phosphatase 92 U/L 37-153 normal Not Available [facility] [address] [place], [address], 02/04/2024 10:14:34 02/03/20 24 02/04/2024 COMPR EHENS ELIF METAB OLIC PANEL AST 17 U/L 10-35 normal Not Available [facility] [employer] [facility] [address] [facility] [address] [facility] [place], [address], 02/04/2024 10:14:34 02/03/20 24 02/04/2024 COMPR EHENS ELIF METAB OLIC PANEL ALT 15 U/L 6-29 normal Not Available [facility] [address] [facility] [address] [facility] [place], [address], 02/04/2024 10:14:34 02/03/20 24 02/04/2024 CBC (INCL UDES DIFF/ PLT) white blood cell count 7.7 thous and/u L 3.8-10 .8 normal Not Available [facility] [address] [facility] [place], [address], 02/04/2024 06:45:58 02/03/20 24 02/04/2024 CBC (INCL UDES DIFF/ PLT) red blood cell count 4.40 jimmy on/uL 3.80-5 .10 normal Not Available [facility] [address] [facility] [place], [address], 02/04/2024 06:45:58 02/03/20 24 02/04/2024 CBC (INCL UDES DIFF/ PLT) hemoglobin 13.5 g/dL 11.7-1 5.5 normal Not Available [facility] [address] [facility] [place], [address], 02/04/2024 06:45:58 02/03/2002/04/2024 CBC (INCL UDES DIFF/ PLT) hematocrit 40.9 % 35.0-4 5.0 normal Not Available [facility] [address] [facility] [place], [address], 02/04/2024 06:45:58 02/03/20 24 02/04/2024 CBC (INCL UDES DIFF/ PLT) MCV 93.0 fL 80.0-1 00.0 normal Not Available [facility] [address] [facility] [place], [address], 02/04/2024 06:45:58 02/03/2002/04/2024 CBC (INCL UDES DIFF/ PLT) MCH 30.7 pg 27.0-3 3.0 normal Not Available [facility] [address] [facility] [place], [address], 02/04/2024 06:45:58 02/03/2002/04/2024 CBC (INCL UDES DIFF/ PLT) MCHC 33.0 g/dL 32.0-3 6.0 normal Not Available [facility] [address] [facility] [place], [address], 02/04/2024 06:45:58 02/03/20 24 02/04/2024 CBC (INCL UDES DIFF/ PLT) RDW 13.1 % 11.0-1 5.0 normal Not Available [facility] [address] [facility] [place], [address], 02/04/2024 06:45:58 02/03/20 24 02/04/2024 CBC (INCL UDES DIFF/ PLT) platelet count 325 thous and/u L 140-40 0 normal Not Available [facility] [address], [place], [address], 02/04/2024 06:45:58 02/03/2002/04/2024 CBC (INCL UDES DIFF/ PLT) MPV 8.2 fL 7.5-12 .5 normal Not Available [facility] [place] [facility] [address], [place], [address], 02/04/2024 06:45:58 02/03/20 24 02/04/2024 CBC (INCL UDES DIFF/ PLT) absolute neutrophils 5059 cells /uL 1500-7 800 normal Not Available [facility] [place] [facility] [address], [place], [address], 02/04/2024 06:45:58 02/03/20 24 02/04/2024 CBC (INCL UDES DIFF/ PLT) absolute lymphocytes 1879 cells /uL 850-39 00 normal Not Available [facility] [place] [facility] [address], [place], [address], 02/04/2024 06:45:58 02/03/2002/04/2024 CBC (INCL UDES DIFF/ PLT) absolute monocytes 593 cells /uL 200-95 0 normal Not Available [facility] [place] [facility] [address], [place], [address], 02/04/2024 06:45:58 02/03/20 24 02/04/2024 CBC (INCL UDES DIFF/ PLT) absolute eosinophils 139 cells /uL 15-500 normal Not Available [facility] [place] [facility] [address] [place], [address], 02/04/2024 06:45:58 02/03/2002/04/2024 CBC (INCL UDES DIFF/ PLT) absolute basophils 31 cells /uL 0-200 normal Not Available [facility] [place] [facility] [address], [place], [address], 02/04/2024 06:45:58 02/03/20 24 02/04/2024 CBC (INCL UDES DIFF/ PLT) neutrophils 65.7 % normal Not Available [facility] [address] [place], [address], 02/04/2024 06:45:58 02/03/20 24 02/04/2024 CBC (INCL UDES DIFF/ PLT) lymphocytes 24.4 % normal Not Available [facility] [place] [facility] [address] [place], [address], 02/04/2024 06:45:58 02/03/2002/04/2024 CBC (INCL UDES DIFF/ PLT) monocytes 7.7 % normal Not Available [facility] [place] [address] [place], [address], 02/04/2024 06:45:58 02/03/20 24 02/04/2024 CBC (INCL UDES DIFF/ PLT) eosinophils 1.8 % normal Not Available [facility] [place] [facility] [address] [place], [address], 02/04/2024 06:45:58 02/03/20 24 02/04/2024 CBC (INCL UDES DIFF/ PLT) basophils 0.4 % normal Not Available [facility] [place] [address] [place], [address], 02/04/2024 06:45:58 02/03/2002/04/2024 TSH W/REF KELSY TO FT4 TSH w/reflex to FT4 1.98 mIU/L 0.40-4 .50 normal Not Available [facility] [place] [facility] [address] [place], [address], 02/04/2024 07:45:11 02/03/20 24 02/04/2024 VITAM IN [...] /MS is recom heather d: order code 64236 (tyron ents >2yrs ). See Note 1 Note 1 For addit ional infor atilio naranjo refer to http: //malou Serra stDia gnost ics.c om/fa q/FAQ 199 (This link is being provi ded for infor bonnie mayers/ braden ba purpo ses only. ) Not Available [facility] [place] [facility] [address] [facility], [place], [address], 02/04/2024 07:45:12 11/17/19 24 11/17/2023 CT, abdom en + pelvi s, w/o contr ast No observ ation record ed. [email or web address] [facility] (Radiology) [address] [place], [address], 11/23/2023 17:50:58 11/17/19 24 11/17/2023 CT ABD/p michelle oral contr only [facility] [address] [place] [address] Phone: Fax: Name: CHARLES CANO Exam Date: 024 : [birth year] 60 Age 62 years Gender : F Access ion: [id number] Physic zoey: SONG ZAVALA Facili ty: [facility] Facili ty HSV: Outpat ient Exam: [...] you for referr CHARLES Pena A to [facility] terrance Karissa al. Legall y authen ticate d by JENNIFER Gutiérrez MD 11-17 15:31: 16 CC'ed Logic: Orderi ng Provid er: ULISES RICE CC Provid er: ULISES RICE Attend ing Provid er: ULISES RICE Referr ing Provid er: ULISES RICE Admitt ing Provid er: ULISES RICE [email or web address] [facility] (Radiology) [address] , [place], [address], 11/25/2023 15:18:03 Result Notes None recorded. Problems Name Problem SNOMED Code Status Onset Date Resolution Date Notes Provider Name and Address Organization Details Recorded Time Anxiety 66777341 Active 2022 [employer] 3 09:12:14 Depressive disorder 80311659 Active 2022 [employer] 3 09:12:20 Hyperlipidemia 15386579 Active 2022 [employer] 3 09:12:28 Problem Notes None recorded. Procedures Surgical History Date Name Laterality Status Provider Name and Address Organization Details Recorded Time 3 Most Recent Mammogram completed Danna Lopez [employer] 01/25/2023 12:53:33 0 Date of Last Pap Smear completed Shahab P. Tabatabai[employer] 10/29/2022 09:34:18 Breast Biopsy completed Shahab P. Tabatabai, [employer] 10/29/2022 09:09:56 Caesarean Section completed Shahab P. Tabatabai, [employer] 10/29/2022 09:09:56 Mastectomy completed Shahab P. Tabatabai, [employer] 10/29/2022 09:09:56 Tubal Ligation completed [employer] 10/29/2022 09:09:56 Gallbladder Surgery completed [facility]. 10/29/2022 09:09:56 Imaging Results None recorded. Procedure Notes None recorded. Medical Equipment None Reported. Allergies Allergen ID Allergen Name Allergen Category Reaction Reaction Severity Criticality Documentation Date Start Date Code Code System Note Provider Name and Address Organization Details Recorded Time 01188 metoprolo l Not available Not available Not available Not available 01/25/2023 6918 RxNorm Tamar Plumasanju carrera [employer] 13:07:10 Medications Name Sig Start Date Stop [...] azelastine 137 mcg (0.1 %) nasal spray Huron 2 sprays twice a day by intranasa l route. active Not Available Not Available No t Available albuterol sulfate HFA 90 mcg/actuat ion aerosol inhaler INHALE 1 TO 2 PUFFS BY MOUTH EVERY 4 TO 6 HOURS active Not Available Not Available No t Available fluticason e propionate 50 mcg/actuat ion nasal spray,susp ension Huron 1 spray every day by intranasa l [...] in Arterial blood by Pulse oximetry Systolic And Diastolic Provider Name and Address Organization Details Last Updated DateTime 4 157.48 cm 34.6 kg/m2 03842.9 6 g 75 /min 97 % 97 % 134/80 mm[Hg] Danna Lopez [facility] [employer] [facility]. 4 13:18:01 Date Recorded Body height Body mass index (BMI) Body weight Body temperature Heart rate Oxygen saturation Oxygen saturation in Arterial blood by Pulse oximetry Systolic And Diastolic Systolic And Diastolic Provider Name and Address Organization Details Last Updated DateTime 3 157.48 cm 33.6 kg/m2 59291.2 8 g 98.2 [degF] 68 /min 95 % 95 % 159/108 mm[Hg] 140/82 mm[Hg] Tamar Machado [employer]. 3 13:05:29 Date Recorded Body height Body mass index (BMI) Body weight Heart rate Oxygen saturation Oxygen saturation in Arterial blood by Pulse oximetry Systolic And Diastolic Provider Name and Address Organization Details Last Updated DateTime 4 157.48 cm 33.5 kg/m2 61889.8 g 75 /min 97 % 97 % 120/83 mm[Hg] Danna [employer] 4 13:09:17 Date Recorded Body height Body mass index (BMI) Body weight Heart rate Oxygen saturation Oxygen saturation in Arterial blood by Pulse oximetry Systolic And Diastolic Provider Name and Address Organization Details Last Updated DateTime 3 157.48 cm 33.7 kg/m2 12106.1 g 66 /min 98 % 98 % 136/88 mm[Hg] Danna Lirally [employer] 3 13:08:38 Date Recorded Body height Body mass index (BMI) Body weight Heart rate Oxygen saturation Oxygen saturation in Arterial blood by Pulse oximetry Systolic And Diastolic Provider Name and Address Organization Details Last Updated DateTime 3 157.48 cm 33.7 kg/m2 98542.4 3 g 64 /min 97 % 97 % 130/88 mm[Hg] Danna [employer] 3 13:27:40 Social History Question Answer Notes LastModified by Organizat ion Details LastModified Time Tobacco Smoking Status Former Smoker CLARY carrera [employer] 10/29/2022 09:09:56 Do You Have An Advance Directive? No [email or web address] Information not available 10/29/2022 Is Your Home Air Conditioned? Yes [email or web address] Information not available 10/29/2022 How Many Years Have You Consumed Alcohol? 25 [email or web address] Information not available 10/29/2022 Do You Wear A Helmet When Biking? No Information not available 10/29/2022 Are You Blind Or Do You Have Difficulty Seeing? No [email or web address] Information not available 10/29/2022 What Is Your Level Of Caffeine Consumption? Occasional Information not available 10/29/2022 In The 14 Days Before Symptom Onset, Have You Had Close Contact With A Laboratory-confir med COVID-19 While That Case Was Ill? No Information not available 10/29/2022 In The 14 Days Before Symptom Onset, Have You Had Close Contact With A Person Who Is Under Investigation For COVID-19 While That Person Was Ill? No [email or web address] Information not available 10/29/2022 Have You Been To An Area Known To Be High Risk For COVID-19? No Information not available 10/29/2022 Are You Deaf Or Do You Have Serious Difficulty Hearing? No [email or web address] Information not available 10/29/2022 What Type Of Diet Are You Following? SPECIFIC Information not available 10/29/2022 How Many Days Of Moderate To Strenuous Exercise, Like A Brisk Walk, Did You Do In The Last 7 Days? 5 [email or web address] Information not available 10/29/2022 Have There Been Any Changes To Your Family Or Social Situation? Yes [email or web address] Information no t available 10/29/2022 When Did You Quit Smoking? 6-10yearssince lastcigarette aduhxbww04 Information not available 10/29/2022 Are There Any Guns Present In Your Home? Yes [email or web address] Information not available 10/29/2022 Which Of Your Hands Is Dominant? Right ocqbwtmb42 Information not available 10/29/2022 What Is Your Home Situation? Other [email or web address] Information not available 10/29/2022 Do You Have A Medical Power Of Watch Train Assembler? Yes [email or web address] Information not available 10/29/2022 What Was The Date Of Your Most Recent Tobacco Screening? 02/03/2024 [email or web address] Information not available 02/03/2024 Do You Have Any Pets? No [email or web address] Information not available 10/29/2022 What Is Your Relationship Status? [email or web address] Information not available 10/29/2022 Have You Repeated Any Grades? No tnfwwatv90 Information not available 10/29/2022 Do You Use Your Seat Belt Or Car Seat Routinely? No [email or web address] Information not available 10/29/2022 Are You Sexually Active? No [email or web address] Information not available 10/29/2022 Do You Have Any Siblings? Yes jswzecbm92 Information not available 10/29/2022 Do You Have Smoke And Carbon Monoxide Detectors In Your Home? Yes bcssyleg15 Information not available 10/29/2022 At What Age Did You Start Smoking Tobacco? 16 ctssrpka76 Information not available 10/29/2022 Are You Passively Exposed To Smoke? Yes qnndputs76 Information no t available 10/29/2022 Are There Any Smokers In Your House? No [email or web address] Information not available 10/29/2022 How Much Tobacco Do You Smoke? 2 PPD qtxmidkg05 Information not available 10/29/2022 Do You Use Sunscreen Routinely? No weiyseaf74 Information not available 10/29/2022 How Many Years Have You Smoked Tobacco? 35 uyunobax26 Information not available 10/29/2022 Have You Recently Traveled Abroad? No rpssanuw79 Information not available 10/29/2022 Do You Have Difficulty Walking Or Climbing Stairs? Yes lssyjphy93 Information not available 10/29/2022 Are You Currently In School? No vmhtrajb29 Information not available 10/29/2022 Sex: Female Functional Status Question Answer Note LastModified by Organizat ion Details LastModified Time Do you use any illicit or recreational drugs? No otaquuzo69 Information not available 10/29/2022 What is your level of alcohol consumption? Moderate fwqgbozs17 Information not available 10/29/2022 Are you currently employed? No Information not available 10/29/2022 Do you have transportation difficulties? No mgczszej98 Information not available 10/29/2022 Are you able to walk? YESASSIST jyljmgsa68 Information not available 10/29/2022 Do you have difficulty doing errands alone? No jlhmccay80 Information not available 10/29/2022 Are you able to care for yourself? Yes kahreynp23 Information not available 10/29/2022 Do you have difficulty dressing or bathing? No ppytfyde62 Information not available 10/29/2022 What is your exercise level? Moderate qwefwlkh96 Information not available 10/29/2022 Mental Status Question Answer Note LastModified by Organizat ion Details LastModified Time Do you feel stressed (tense, restless, nervous, or anxious, or unable to sleep at night)? FA43040-0 ygzoyevx63 Information not available 10/29/2022 Do you have difficulty concentrating, remembering or making decisions? No Information no t available 10/29/2022 Are you or have you been involved with bullying? No qoshosql26 Information not available 10/29/2022 Family History Relationship Description Onset Age of this Age Resolved Age Notes LastModified by Organization Details LastModified Time Mother Hypercholest erolemia [email or web address] Not available 10/29 09:09:54 Mother Asthma Not available 10/29/2022 09:09:54 Mother Anxiety disorder [email or web address] Not available 10/29 09:09:54 Mother Hypertensive disorder kqhhvmus05 Not available 10/29 09:09:54 Mother Seizure tegrmbfp85 Not availabl e 10/29/2022 09:09:54 Father Hypercholest erolemia gyladqvt62 Not available 10/29 09:09:54 Father Anxiety disorder diqkgqtm47 Not available 10/29 09:09:54 Father Depressive disorder xzihnllk28 Not available 10/29 09:09:54 Father Hypertensive disorder iokrxfnw51 Not available 10/29 09:09:54 Brother Asthma hanxfxmi17 Not availabl e 10/29/2022 09:09:54 Brother Anxiety disorder orkcfwmv01 Not available 10/29 09:09:54 Brother Depressive disorder qqppktfy34 Not available 10/29 09:09:54 Sister Hypercholest erolemia cinfdiqf81 Not available 10/29 09:09:54 Sister Asthma qjvmubye79 Not available 10/29/2022 09:09:54 Sister Anxiety disorder [email or web address] Not available 10/29 09:09:54 Sister Depressive disorder Not available 10/29 09:09:54 Sister Hypertensive disorder arixcplx68 Not available 10/29 09:09:54 Medical History Condition Response Breast Cancer Y Lung Disease Y Depression Y Anxiety Disorder Y Obesity Y Vision or Eye Problems Y Acid Reflux (GERD) Y High Cholesterol Y GI Problems Y Asthma Y Hypertension Y Gynecological History Statement/Question Response Menses Monthly N HPV Vaccine N Date of Last Pap Smear 09/27/2009 Most Recent Mammogram 11/19/2022 Age at First Child 18 Obstetrics History GPAL:G 0 P 0 0 0 0 Immunizations Vaccine Type Date Status Note Provider Nam e and Address Organization Details Recorded Time Influenza, split virus, quadrivalent, preservative 7 completed CLARY FERRER [employer], [employer] 10/29/2022 09:11:56 Influenza, split virus, quadrivalent, preservative 8 completed CLARY NABIL [employer], [employer] 10/29/2022 09:11:56 Influenza, MDCK, quadrivalent, PF 2 completed CLARY NABIL [employer], [employer] 10/29/2022 09:11:56 COVID-19, mRNA, LNP-S, PF, 100 mcg/0.5mL dose or 50 mcg/0.25mL dose 2 completed CLARY NABIL [employer], [employer] 10/29/2022 09:11:56 COVID-19 vaccine, vector-nr, rS-Ad26, PF, 0.5 mL 1 completed CLARY NABIL [employer], [employer] 10/29/2022 09:11:56 Pneumococcal conjugate PCV20, polysaccharide FRN662 conjugate, adjuvant, PF 2 completed CLARY NABIL [employer] 10/29/2022 09:11:56 influenza, unspecified formulation 7 completed CLARY carrera, [employer] 10/29/2022 09:11:56 Influenza, split virus, quadrivalent, PF 0 completed CLARY carrera, [employer] 10/29/2022 09:11:56 Influenza, split virus, quadrivalent, PF 1 completed CLARY carrera, [employer] 10/29/2022 09:11:56 Influenza, split virus, quadrivalent, PF 9 completed CLARY carrera, [employer] 10/29/2022 09:11:56 COVID-19, mRNA, LNP-S, PF, 50 mcg/0.5 mL 3 completed Danna Lopez deandre, [employer] 02/03/2024 13:07:16 Past Encounters Encounter ID Performer Location Encounter Start Date Encounter Closed Date Diagnosis/Indication Diagnosis SNOMED-CT Code Diagnosis ICD10 Code Diagnosis Note [id number] [place] [address] 10/29/2022 09:06:02 10/29/2022 10:03:41 Hyperlipidemia 01710142 E78.5 Screening mammography of bilateral breasts 1836159594 26832 Z12.31 Essential hypertension 73169997 I10 Fatigue 63544587 R53.83 Body mass index 30+ - obesity 248608664 Z68.33 [id number] [place] [address] 0 01/25/2023 12:44:39 01/25/2023 13:32:49 Skin nodule 53323048 R22.9 Hyperlipidemia 20460829 E78.5 Essential hypertension 76340263 I10 Body mass index 30+ - obesity 391162786 Z68.33 [id number] Iraida Zavala [place] [address] 0 04/27/2023 12:46:06 04/27/2023 13:40:42 Essential hypertension 67638893 I10 Gastroesop hageal reflux disease without esophagitis 692951161 K21.9 Allergic rhinitis 016158 04 J30.9 Mild inter mittent asthma 677630166 J45.20 Body mass index 30+ - obesity 252594541 Z68.33 [id number] [place] [address] 0 08/05/2023 13:14:19 08/05/2023 13:48:59 Hyperlipidemia 60731358 E78.5 Essential hypertension 12445529 I10 Fatigue 74079080 R53.83 Vitamin B deficiency 479 16902 E53.9 Vitamin D deficiency 347 00865 E55.9 Mild inter mittent asthma 485039704 J45.20 Chronic ob structive pulmonary disease 81460170 J44.9 Allergic rhinitis 486388 04 J30.9 Gastroesop hageal reflux disease without esophagitis 540094143 K21.9 Body mass index 30+ - obesity 713976133 Z68.33 [id number] [place] [address] 0 11/08/2023 12:51:16 11/08/2023 16:26:24 Abdominal pain 39102437 R10.9 Low back pain 866730494 M54.50 Body mass index 30+ - obesity 504858270 Z68.33 [id number] [place] [address] 0 02/03/2024 12:48:55 02/03/2024 13:31:56 Hyperlipidemia 56353813 E78.5 Fatigue 43561681 R53.83 Vitamin D deficiency 347 85739 E55.9 Essential hypertension 32841881 I10 Body mass index 30+ - obesity 692801631 Z68.33 Health Concerns Section Related Observation LastModified by Organization Detai ls LastModified Time None Recorded Concern Status LastModified by Organization Details LastModified Time None Recorded Advance Directives Directive N: Payers Insurance Date Sequence Insurance Name Policy Number Policy Martell Covered Member ID Martell Member ID Guarantor Name 08/01/2024 MEDICARE [place]: CIGNA [employer] [facility] Kaykay Wakefield [id number] Kaykay Wakefield 10/29/2022 1 *SELF PAY* Th lion Wakefield 07/31/2024 1 [employer] (MEDICARE REPLACEMENT/A DVANTAGE - PPO) Kaykay Wakefield [id number] Kaykay Wakefield Notes Date Note Type Note [...] refer to derm for further evaluation. Iraida Zavala APRN [address] [facility], [place], [address], [facility] [employer], [facility]. 01/25/2023 14:27:08 04/27/2023 text/html pt here for [...] could be the eye glasses and if bronzer framed glasses would help if not i will refer to ENT. pt voiced understanding. Iraida Zavala, [employer] [address] [facility], [place], [address], [employer], [employer]. 04/27/2023 13:54:40 08/05/2023 text/html pt here today fo r medication refills. pt states shes doing well on current medication regime and has no new complaints today. ordered routine labwork. pt states that she had her mammogram earlier this year, states she has a colonoscopy yearly and declines a pap. Iraida Zavala, [employer] IN[employer] [address] [place], [address], [employer], [employer]. 08/05/2023 14:00:45 11/08/2023 text/html pt here today [...] hasnt taken buspar in 5 days. Iraida Zavala, [employer] IN[employer] [address] [facility], [place], [address], [employer], [employer]. 11/08/2023 16:41:59 02/03/2024 text/html pt here today [...] pt voiced understanding. Iraida Zavala APRN [address] [place], [address], [facility] [employer] 02/03/2024 13:29:00 OBGyn Episode No OBEpisode recorded.
--- OUTSIDE RECORDS SUMMARY | 2025-04-11 13:52 | XMS_ITS | Encounter Summary ---
Author Organization [facility] Address [address] [place] [address] Care Team Providers Care Machine Sewer Name Role Phone Ro Hines HUDSON Primary Care Provider [phone] Rita Spence DO Primary Care Provider [phone] Reason for Referral * Consultation (Routine) - Closed Specialty Diagnoses / Procedures Referred By Contac t Referred To Contact Rheumatology Diagnoses Weakness Mckayla Diaz MD [address] [facility] [address] [place] [address] Phone: tel: fax: Referral ID Status Reason Start Date Expiration Date V isits Requested Visits Authorized [id number] Closed Specialty Services Required 08/30/2024 03/01/2026 1 1 Encounter Details Date Type Department Care Team (Late st Contact Info) Description 08/30/2024 [facility] [address] [place] [address] Mckayla Daiz MD [address] [facility] [address] [place] [address] Weakness (Primary Dx) Social History Tobacco [...] 06/27/2025 1:00 PM EDT Consult [employer] [facility] [address] [facility], [address] [place] [address] Darrel Cruz MD [address] [place] [address] Scheduled Referrals Name Type Priority Associated Diagnoses Order Schedule Ambulatory referral to Rheumatology Outpatient Referral Routine Weakness Expected: 08/30/2024 (Approximate), Expires: 02/28/2026 documented as of this encounter Visit Diagnoses Diagnosis Weakness- Primary Other malaise and fatigue documented in this encounter Care Teams Machine Sewer Relationship Specialty Start Date End Date Ro Hines APRN [address] [facility] [address] [place] [address] PCP - General 02/07/21 11/19/24 Rita Spence DO [address] [place] [address] PCP - General 11/20/24 documented as of this encounter
[2025-04-11 14:20] VITALS: BP 127/94; BP 141/98; PULSE 95; RESP 16; O2SAT 93; BMI 32.0
--- NOTE | 2025-04-11 16:25 | EXP.PAIN.SOA ---
[facility] Disclaimer: The information contained in this section may have been updated after the patient was seen, as this information can be updated by other users. Medical History Preop examination Fibromyalgia Pre-syncope Confusion History of emphysema History of vertigo Restless leg syndrome Brain lesion Hx of breast cancer Palpitations TIA (transient ischemic attack) Left-sided weakness Aphasia Asthma COPD (chronic obstructive pulmonary disease) Anxiety Depression IBS (irritable bowel syndrome) delivery delivered Surgical History History of section History of colonoscopy Hx of cholecystectomy H/O partial mastectomy Family History Mother Brain tumor Other Blood disorder Cancer Coronary artery disease Heart attack Hypertension Social History Smoking Status: Former smoker (quit 8 years ago) alcohol intake: current alcohol intake frequency: holidays/special occasions only (very rarely) counseling provided: provider counseling substance use type: denies use current occupational status: other Travel in the last 8 weeks?: None household members: spouse housing: house number of children: 2 (46 and 44 years old) current occupational exposures/hazards: No caffeine: Yes PM Subjective & Objective Subjective Subjective:: Patient is a pleasant 64-year-old female who presents today for 1 month follow-up. Today she rates her pain a 2 out of 10 more prominent in her right hip. Patient does state that she is still not yet been to see the neurosurgeon that the soonest they could get her in was May 14 with [facility]. Patient is in the process of trying to see about a spinal cord stimulator trial. She denies any other changes. Patient is currently managed with ropinirole 0.5 mg at bedtime from our office and did states she felt like this helped. Her Clarence has been reviewed and is appropriate. Review of Systems: General: No recent weight changes, no fever, no sleep disturbances Respiratory: No cough, no shortness of air, no recurring pulmonary infections Cardiovascular/peripheral vascular: No chest pain, no palpitations, no edema, no shortness of breath Gastrointestinal: No new onset incontinence, normal bowel movements reported Genitourinary: No new onset incontinence Musculoskeletal: Chronic back pain, hip pain Psychiatric: [Normal mood/affect] Neurological: [Denies weakness in extremities], [denies balance issues] Pain at rest (0-10 scale): 2 Objective Objective:: Physical Exam: General: Alert and oriented x3, no acute distress, pleasant and cooperative Lungs: Respirations even and unlabored, symmetrical chest expansion Eyes: PERRL Musculoskeletal: Flexion and extension of lumbar [spine] somewhat guarded secondary to pain, [antalgic gait noted] Neurological: Speech clear, no gross sensory deficit Has patient had previous pain injection?: No Conservative treatment options previously tried: Home exercise plan Length of treatment: Longer than 12 weeks Meds Home Medications and Allergies Home Medications ?Medication ?Instructions ?Recorded ?Confirmed ?Type fluticasone fur. 100 mcg-umeclid 1 inh inhalation DAILY allergies 04/05/19 04/11/25 History 62.5 mcg-vilant 25 mcg inhalat.powder (Trelegy Ellipta) azelastine 205.5 mcg (0.15 %) 205.5 mcg intranasal BID PRN 04/18/24 04/11/25 History nasal spray allergies bisoprolol fumarate 5 mg tablet 5 mg PO DAILY 04/18/24 04/11/25 History simvastatin 20 mg tablet 20 mg PO DAILY 04/18/24 04/11/25 History albuterol sulfate 90 mcg/actuation 1 mcg inhalation DIRECTED PRN 08/09/24 04/11/25 History aerosol inhaler Asthma duloxetine 60 mg capsule,delayed 60 mg PO ONCE 11/28/24 04/11/25 History release lisinopril 20 mg tablet 20 mg PO DAILY 11/28/24 04/11/25 History ropinirole 0.5 mg tablet 0.5 mg PO HS #90 tabs 01/29/25 04/11/25 Rx rivaroxaban 20 mg tablet (Xarelto) 20 mg PO DAILY #30 tabs 03/08/25 04/11/25 Rx New Prescriptions to Start Prescriptions: Allergies Allergy/AdvReac Type Severity Reaction Status Date / Time metoprolol AdvReac Intermediate Dizziness Verified 03/08/25 09:18 Assessment and Plan *Assessment and plan (1) Fibromyalgia: Status: Acute Category: Medical Code(s): M79.7 - Fibromyalgia (2) Lumbar radiculopathy: Status: Chronic Category: Medical Code(s): M54.16 - Radiculopathy, lumbar region (3) Degenerative disc disease, lumbar: Status: Chronic Category: Medical Code(s): M51.369 - Other intervertebral disc degeneration, lumbar region without mention of lumbar back pain or lower extremity pain Plan I did discuss with her that we will still plan on proceeding forward with the stimulator trial once she has seen neurosurgery. We will have her follow-up back in office in 1 month following that consult. Patient agrees with this plan of care. Patient has been instructed to contact the clinic with any concerns before the next appointment. Dr. Holguin has reviewed this note and agrees with this plan of care. This note was dictated using voice recognition software and make contain errors or omissions. All injections are used with Lidocaine, Bupivacaine and dexamethasone. Occasionally urine drug screen is needed to verify patient's compliance with our office pain contract. This is ordered based off specific treatments related to chronic pain with the potential to abuse certain medications.
== END 2025-04-11 23:59 | disposition home or self-care (01) ==
LOC: SC.PAIN 13:40
PROVIDERS: PCP Family Medicine; Visit Provider Nurse Practitioner Family
DX: M79.7 Fibromyalgia (principal); M51.16 Intervertebral disc disorders with radiculopathy, lumbar region; Z79.899 Other long term (current) drug therapy
CPT/HCPCS: 99212; G0463

== ENCOUNTER 2025-05-21 14:13 | Outpatient (POV) | payer MEDICARE, SELFPAY ==
--- OUTSIDE RECORDS SUMMARY | 2024-12-30 17:30 | XMS_ITS ---
Author Organization [facility] Address [address] [place] [address] Care Team Providers Care Banana Carrier Name Role Phone Paul Mclaughlin Primary Care Provider [phone], [place] Unavailable [phone] Paul Mclaughlin Unavailable Unavailable Migration, Provider Unavailable Unavailable Allergies Allergen (clinical drug ingredient) Drug/Non Drug Allergy documented on EMR Reaction Allergy Type Onset Date Status metoprolol Metoprolol dizziness Drug Allergy Activ [facility] Conversion Encounter Medications Medication SIG (Take, [...] review and pick correct strength-formulatio n from [employer] options. If intended option is not shown, [...] review and pick correct strength-formulatio n from [employer] options. If intended option is not shown, discontinue and re-order from Quick Search* Active Multivitamin - 1 tab(s) orally once a day; Duration: 30 day(s) Active Encounters Encounter Location Date Provider Diagnosis [facility] [place] [address] [facility] [address] [place] [address] 12/30/2024 Provider Migration Chronic obstructive pulmonary disease, [...] * Kaykay WALTER ADOB:01/1961 (64 yo F)Acc No.[id number]:12/30/2024 Patient: Kaykay MEDINA A Provider: Eben Zhao :1960 A ge:64 Y S ex:Female Date:12/30/2024 Address:[address] [place] [address], [facility], [id number] Pcp:Paul Mclaughlin Subjective: * Chief Complaints: * [...] Electronic signature of Prov ider Migration on 05/21/2025 at 02:20 PM EDT Sign off status: Pending * Provider: Eben valdivia Migration Date: 0 12/30/2024 Generated for Jerzy gresham/Mango/Raf on: 0 05/21/2025 02:20 PM EDT
--- OUTSIDE RECORDS SUMMARY | 2025-05-21 14:20 | XMS_ITS | Encounter Summary ---
Author Organization [facility] Address [address] [place] [address] Care Team Providers Care Truss Assembler Name Role Phone Rita Spence DO Primary Care Provider [phone] Reason for Referral * Consultation (Routine) - Authorized Specialty Diagnoses / Procedures Referred By Contac t Referred To Contact Neurology Diagnoses Weakness generalized Myotonia Mckayla Diaz MD [address] [facility] [address] [place] [address] Phone: tel: fax: Referral ID Status Reason Start Date Expiration Date Visits Requested Visits Authorized [id number] Authorized Specialty Services Required 02/02/2025 08/04/2026 1 1 Encounter Details Date Type Department Care Team (Late st Contact Info) Description 02/02/2025 [facility] Practice [address] [place] [address] Mckayla Diaz MD [address] [facility] [address] [place] [address] Weakness generalized (Primary [...] Info) Description 06/27/2025 1:00 PM EDT Consult [facility] [address] [facility], [address] [place] [address] Darrel Cruz MD [address] [place] [address] Scheduled Referrals Name Type Priority [...] documented as of this encounter Care Teams Truss Assembler Relationship Specialty Start Date End Date Rita Spence DO [address] [place] [address] PCP - General 11/20/24 documented as of this encounter
--- OUTSIDE RECORDS SUMMARY | 2025-05-21 14:20 | XMS_ITS | Clinical Summary ---
Author Organization [facility] Address [address] [place] [address] Care Team Providers Care Mail Processor Name Role Phone Provider, No Known Primary Care Provider Unavail able Allergies No known active allergies Social History Tobacco Use Types Packs/Day Years Used Date Smoking Tobacco: Never Assessed Abuse Screen Answer Date Recorded Unsafe at Home or Work/School Not on file Feels Threatened by Someone? Not on file 07/2023 Does Anyone Keep You from Co ntacting Others or Doint Things Outside the Home? Not on file 07/07/2023 Physical Sign of Abuse Present Not on file 1 Housing Stability Answer Date Recorded Current Living Arrangements Not on file 06/27 Potentially Unsafe Housing Conditions Not on grecia e 07/07/2023 Family and Community Support Answer Valdo e Recorded Help with Day-to-Day Activities Not on file 07/07/2023 Lonely or Isolated Not on file 07/07/2023 Employment Answer Date Recorded Do you want help finding or keeping work or a maria elena b? Not on file 07/07/2023 Disabilities Answer Date Recorded Concentrating, Remembering, or Making Decisions Difficulty Not on file 07/07/2023 Doing Errands Independently Difficulty Not on fi le 07/07/2023 Education Answer Date Recorded Help with school or training? Not on file Preferred Language Not on file 07/07/2023 Comments Unknown Sex and Gender Information Value Date Recorded Sex Assigned at Not on file Legal Sex Female 11:21 AM EST Gender Identity Not on file Sexual Orientation Not on file Plan of Treatment Health Maintenance Due Date Last Done Comments DXA SCAN 1960 TDAP/TD VACCINES (1 - Tdap) 11/29/1978 MAMMOGRAM 1999 COLOGUARD 11/29/2004 COLON CANCER SCREENING 5 YEAR SIGMOIDOSCOPY 11/29/2004 COLONOSCOPY 11/29/2004 COLORECTAL CANCER SCREENING 11/29/2004 CT COLONOGRAPHY 11/29/2004 FECAL OCCULT BLOOD TEST 11/29/2004 FIT Testing (1 year) 11/29/2004 Pneumococcal Vaccine 50+ (1 of 1 - PCV) 11/29/2009 ZOSTER VACCINE (1 of 2) 11/29/2009 ANNUAL PHYSICAL 08/04/2017 HEPATITIS C SCREENING 08/04/2017 COVID-19 Vaccine ( season) 2024 INFLUENZA VACCINE 06/27/2025 Insurance PPO Care Teams Mail Processor Relationship Specialty Start Date End Date Provider, [place] [address] PCP - General 08/04/17
--- OUTSIDE RECORDS SUMMARY | 2025-05-21 14:20 | XMS_ITS | Clinical Summary ---
Author Organization [facility] Address [address] [place] [address] Care Team Providers Care Toe Puller Name Role Phone JordyRita Primary Care Provider [phone] Allergies Active Allergy Reactions Criticality Noted Date [...] 04/19/2017 10/09/2024 Asthma-COPD overlap syndrome 04/19/2017 10/09/2024 Immunizations Immunization Administration Dates Next Due Influenza, Unspecified 08/23/2017 Influenza, injectable, MDCK, preservative free, quadrivalent 07/07/2022 Influenza, injectable, quadrivalent 08/31/2018,1 10/12/2016 Influenza, injectable, quadr ivalent, preservative free 07/15/2021,06/02/2020,08/18/2019 Influenza, seasonal, injectable 08/27/2016 Antonio COVID-19 Vaccine (Blue Cap) 18+ 01/01/20 21 [...] Info) Description 06/27/2025 1:00 PM EDT Consult [facility] [address], [address] [place] [address] Darrel Cruz MD [address] [place] [address] Health Maintenance Due Date Last [...] [facility]-Cervical Cancer Screening 04/05/2012 [facility]-HPV/Cotest 04/05/2012 04/05/2007 [id number] Vaccine ( season) 2025 08/28/2024, 07/09/2023, 04/16/2022, [...] Narrative SUNQUEST - 04/06/2007 10:27 AM EDT [facility] MR #: [id number] [place], [place] [address] 1960 (Age: 46) FW Collect Date: 04/05/2007 00:00 Receipt Date: 04/06/2007 07:48 Page 1 DEPARTMENT OF PATHOLOGY AND LABORATORY MEDICINE CYTOPATHOLOGY REPORT Email: [email or web address] [phone] ATTENDING MD/Practitioner: Isis Mitchell MD Service: [facility] Location: [facility] OTHER MD(S): Nazario Pires MD [...] PERSONAL HISTORY OF MALIGNANT NEOPLASM F: A; 87965 ASP INTER, 88020 FNA PATHO SNOMED CODES: A; E05431 [id number] [id number] P1149 A resident has participated in this service. A pathologist has performed and is responsible for the reported pathologic evaluation. us Historical Provider LAB PATHOLOGY ORDERABLES Fin al Result SUNQUEST from Last 3 Months or Most Recently Relevant to Health Maintenance Insurance MEDICARE Care Teams Toe Puller Relationship Specialty Start Date End Date Rita Spence DO [address] [place] [address] PCP - General 11/20/24
--- OUTSIDE RECORDS SUMMARY | 2025-05-21 14:20 | XMS_ITS | Patient Health Record ---
Author Organization [facility] Address [address] [place] [address] [place] [address] Care Team Providers Care Sales Incentive Analyst Name Role Phone Paul Mclaughlin Primary Care Provider McNees, Ro Unavailable [phone] Paul Mclaughlin Unavailable Unavailable Migration, Provider Unavailable [...] W/U Status Risk Notes Problem Mixed hyperlipidemia (410271088) Mixed hyperlipidemia (E78.2) Active confirmed Problem Irritable bowel syndrome with diarrhea (594293864) Irritable bowel syndrome with diarrhea (K58.0) Active confirmed Problem Sciatica (61846175) Lumbago with sciatica, right side (M54.41) Active confirmed Problem Sciatica (79389316) Lumbago with sciatica, left side (M54.42) Active confirmed Problem Mixed anxiety and depressive disorder (920399402) Depression with anxiety (F41.8) Active confirmed Problem Paresthesia (96631190) Paresthesia (R20.2) Active confirmed Problem Vitamin D deficiency (71023588) Vitamin D deficiency (E55.9) Active confirmed Problem Essential hypertension (34044753) Essential hypertension (I10) Active confirmed Problem Rupture of right rotator cuff (3367151670503849 3) Rotator cuff syndrome of right shoulder (M75.101) Active confirmed Problem Obese class I (491277705337116) BMI 33.0-33.9,adult (Z68.33) Active confirmed Problem Chronic pain (19191335) Other chronic pain (G89.29) Active confirmed Problem BMI 30+ - obesity (496480498) BMI 32.0-32.9,adult (Z68.32) Active confirmed Problem COPD - Chronic obstructive pulmonary disease (57523573) Chronic obstructive pulmonary disease, unspecified COPD type (J44.9) Active confirmed Problem Personal history of primary malignant neoplasm of breast (675938283) History of breast cancer (Z85.3) Active confirmed Problem Degeneration of lumbar intervertebral disc (02717104) Lumbar degenerative disc disease (M51.36) Active confirmed Problem Left rotator cuff syndrome (682108079238244) Rotator cuff syndrome of left shoulder (M75.102) Active confirmed Problem Urinary incontinence (838724201) Urinary incontinence, unspecified type (R32) Active confirmed Problem Incontinence of feces (21490900) Incontinence of feces, unspecified fecal incontinence type (R15.9) Active confirmed Problem Multiple premature ventricular complexes (disorder) (227628608) PVC's (premature ventricular contractions) (I49.3) Active confirmed Encounters Encounter Location Date Provider Diagnosis [facility] [address] [place] [address] [facility] [address] [place] [address] 12/30/2024 Provider Migration Chronic obstructive pulmonary disease, [...] End Date [employer] MED[employer]ARE [address] [address] [place] [address] [id number] Kaykay Valencia Self - patient is the [...]
--- OUTSIDE RECORDS SUMMARY | 2025-05-21 14:20 | XMS_ITS | Encounter Summary ---
Author Organization [facility] Address [address] [place] [address] Care Team Providers Care Surgical Tech Name Role Phone Rita Spence Primary Care Provider Encounter Details Date Type Department Care Team (Late Contact Info) Description 12/01/2024 [facility] Practice [address] [place] [address] Mckayla Diaz MD [address] [facility] [address] [place] [address] Social History Tobacco Use Types [...] [facility] [address] [facility] [address] [facility] [address] [facility] [address], [address] [place] [address] Darrel Cruz MD [address] [facility] [address] [place] [address] documented as of this encounter Visit Diagnoses [...] documented as of this encounter Care Teams Surgical Tech Relationship Specialty Start Date End Date Rita Spence DO [address] [place] [address] PCP - General 11/20/24 documented as of this encounter
--- OUTSIDE RECORDS SUMMARY | 2025-05-21 14:21 | XMS_ITS | Encounter Summary ---
Author Organization [facility] Address [address] [place] [address] Care Team Providers Care Him Assistant Name Role Phone Ro Hines HUDSON Primary Care Provider [phone] Rita Spence DO Primary Care Provider [phone] Reason for Referral * Consultation (Routine) - Closed Specialty Diagnoses / Procedures Referred By Contac t Referred To Contact Rheumatology Diagnoses Weakness Mckayla Diaz MD [address] [facility] [address] [place] [address] Phone: tel: fax: Referral ID Status Reason Start Date Expiration Date V isits Requested Visits Authorized [id number] Closed Specialty Services Required 08/30/2024 03/01/2026 1 1 Encounter Details Date Type Department Care Team (Late st Contact Info) Description 08/30/2024 Community [facility] Practice [address] [place] [address] Mckayla Diaz MD [address] [facility] [address] [place] [address] Weakness (Primary Dx) Social History Tobacco [...] 06/27/2025 1:00 PM EDT Consult [facility] [address] [facility] [address], [address] [place] [address] Darrel Cruz MD [address] [place] [address] Scheduled Referrals Name Type Priority Associated Diagnoses Order Schedule Ambulatory referral to Rheumatology Outpatient Referral Routine Weakness Expected: 08/30/2024 (Approximate), Expires: 02/28/2026 documented as of this encounter Visit Diagnoses Diagnosis Weakness- Primary Other malaise and fatigue documented in this encounter Care Teams Him Assistant Relationship Specialty Start Date End Date Ro Hines APRN [address] [facility] [address] [place] [address] PCP - General 02/07/21 11/19/24 Rita Spence DO [address] [place] [address] PCP - General 11/20/24 documented as of this encounter
--- OUTSIDE RECORDS SUMMARY | 2025-05-21 14:21 | XMS_ITS | Referral Summary ---
Author Organization [employer] ([place], [place], [place], [place]) Address [address] [place] [place] [address] Care Team Providers Care School Occupational Therapist Name Role Phone JordyRita Amber TERAN Primary Care Provider [phone] Allergies Active Allergy Reactions Criticality Noted Date [...] you? Never 11/21/2024 How often does anyone, maragux bueno family and friends, threaten you with harm? Never 11/21/2024 How often does anyone, margaux bueno family and friends, scream or curse at you? Never 11/21/2024 Housing Stability Answer Date Recorded What is your living situation today? I have a [facility] place to live 11/21/2024 Think about [...] Do you speak a language other than [place] at [facility]? No 11/21/2024 Do you want help [...] on file Legal Sex Female 1:13 PM CHANGE OVER Gender Identity Not on file Sexual Orientation [...] Plan of Treatment Not on file Insurance [facility] MEDICARE PPO Advance Directives For more information, please contact: [phone] * Full Code (Latest Code Status on File) Date Activated Date Inactivated Comments 11/21/2024 9:28 AM 11/23/2024 4:12 PM Care Teams School Occupational Therapist Relationship Specialty Start Date End Date Rita Spence, DO [address] [facility] [address] [place] [address] PCP - General Family Medicine 11/21/24
--- OUTSIDE RECORDS SUMMARY | 2025-05-21 14:21 | XMS_ITS | Clinical Summary ---
Author Organization [employer] ([place], [place], [place], [place]) Address [address] [place] [address] Care Team Providers Care Reactor Technician Name Role Phone Rita Spence DO Primary Care Provider [phone] Allergies Active Allergy Reactions Criticality Noted Date [...] Comments ADD / ADHD Brother 1 Harvey [place] Anxiety disorder Brother 1 [place] Diabetes Brother 2 Glenn 1/2 brother Anxiety [...] living situation today? I have a [facility] place to live 11/21/2024 Think about the [...] Do you speak a language other than [place] [facility]? No 11/21/2024 Do you want help [...] on file Legal Sex Female 1:13 PM IT TRAINING SPECIALIST Gender Identity Not on file Sexual Orientation [...] Shingles Vaccine (Zoster) Completed 12/30/2023, 09/2023 Insurance [facility] PPO Advance Directives For more information, please contact: [phone] * Full Code (Latest Code Status on File) Date Activated Date Inactivated Comments 11/21/2024 9:28 AM 11/23/2024 4:12 PM Care Teams Reactor Technician Relationship Specialty Start Date End Date Rita Spence, DO [address] [facility] [address] [place] [address] PCP - General Family Medicine 11/21/24
[2025-05-21 14:38] VITALS: BP 135/90; PULSE 94; RESP 14; O2SAT 95; BMI 32.0
--- NOTE | 2025-05-21 14:54 | EXP.PAIN.SOA ---
[facility] Disclaimer: The information contained in this section may have been updated after the patient was seen, as this information can be updated by other users. Medical History Preop examination Fibromyalgia Pre-syncope Confusion History of emphysema History of vertigo Restless leg syndrome Brain lesion Hx of breast cancer Palpitations TIA (transient ischemic attack) Left-sided weakness Aphasia Asthma COPD (chronic obstructive pulmonary disease) Anxiety Depression IBS (irritable bowel syndrome) delivery delivered Surgical History History of section History of colonoscopy Hx of cholecystectomy H/O partial mastectomy Family History Mother Brain tumor Other Blood disorder Cancer Coronary artery disease Heart attack Hypertension Social History Smoking Status: Former smoker (quit 8 years ago) alcohol intake: current alcohol intake frequency: holidays/special occasions only (very rarely) counseling provided: provider counseling substance use type: denies use current occupational status: other Travel in the last 8 weeks?: None household members: spouse housing: house number of children: 2 (46 and 44 years old) current occupational exposures/hazards: No caffeine: Yes Have you lived/traveled outside [place] in past 30 days?: No Contact w/someone who lives/traveled outside [place] past 30 days?: No Exposure to someone with infectious disease in past 14 days?: No Do you have a fever (greater than 100.4 F or 38 C)?: No Have you tested positive for COVID-19?: No Exposed to someone with COVID-19 in past 14 days?: No Do you have a sore throat?: No Do you have a cough?: No Do you have any weakness?: No Do you have any diarrhea?: No Are you experiencing any unusual bleeding?: No Do you have any muscle aches/pain?: No Do you have any abdominal pain?: No Are you experiencing loss of taste or smell?: No PM Subjective & Objective Subjective Subjective:: Patient is a pleasant 64-year-old female who presents today for worsening low back and hip pain bilaterally. Patient does also state that she has been to see neurosurgery there at [facility] and would like to proceed forward with the spinal cord stimulator trial. Patient does state that she still having the chronic pain that goes into her low back and upper thighs. Patient is managed with ropinirole 0.5 mg at bedtime from our office. She denies any side effects. Patient does state that overall she just has chronic pain that just continues to increase and does interfere with her ability to perform activities of daily living such as cooking and cleaning. Patient does state her pain currently is worse with prolonged positioning such as sitting or laying down and is very severe. Patient has tenderness to touch. Patient has continued conservative therapy with no additional improvement. Her Clarence has been reviewed and is appropriate. Review of Systems: General: No recent weight changes, no fever, no sleep disturbances Respiratory: No cough, no shortness of air, no recurring pulmonary infections Cardiovascular/peripheral vascular: No chest pain, no palpitations, no edema, no shortness of breath Gastrointestinal: No new onset incontinence, normal bowel movements reported Genitourinary: No new onset incontinence Musculoskeletal: Low back pain, bilateral hip pain Psychiatric: [Normal mood/affect] Neurological: [Denies weakness in extremities], [denies balance issues] Pain at rest (0-10 scale): 8 Objective Objective:: Physical Exam: General: Alert and oriented x3, no acute distress, pleasant and cooperative Lungs: Respirations even and unlabored, symmetrical chest expansion Eyes: PERRL Musculoskeletal: Flexion and extension of lumbar [spine] somewhat guarded secondary to pain, [antalgic gait noted] point tenderness along bilateral SIs with positive bilateral Sharon's, Tanner's, Gaenslen's, compression and distraction exam Neurological: Speech clear, no gross sensory deficit Has patient had previous pain injection?: No Conservative treatment options previously tried: Home exercise plan Length of treatment: Longer than 12 weeks Meds Home Medications and Allergies Home Medications ?Medication ?Instructions ?Recorded ?Confirmed ?Type fluticasone fur. 100 mcg-umeclid 1 inh inhalation DAILY allergies 04/05/19 05/21/25 History 62.5 mcg-vilant 25 mcg inhalat.powder (Trelegy Ellipta) azelastine 205.5 mcg (0.15 %) 205.5 mcg intranasal BID PRN 04/18/24 05/21/25 History nasal spray allergies bisoprolol fumarate 5 mg tablet 5 mg PO DAILY 04/18/24 05/21/25 History simvastatin 20 mg tablet 20 mg PO DAILY 04/18/24 05/21/25 History albuterol sulfate 90 mcg/actuation 1 mcg inhalation DIRECTED PRN 08/09/24 05/21/25 History aerosol inhaler Asthma duloxetine 60 mg capsule,delayed 60 mg PO ONCE 11/28/24 05/21/25 History release lisinopril 20 mg tablet 20 mg PO DAILY 11/28/24 05/21/25 History ropinirole 0.5 mg tablet 0.5 mg PO HS #90 tabs 01/29/25 05/21/25 Rx rivaroxaban 20 mg tablet (Xarelto) 20 mg PO DAILY #30 tabs 03/08/25 05/21/25 Rx New Prescriptions to Start Prescriptions: Allergies Allergy/AdvReac Type Severity Reaction Status Date / Time metoprolol AdvReac Intermediate Dizziness Verified 03/08/25 09:18 Assessment and Plan *Assessment and plan (1) Bilateral sacroiliitis: Status: Acute Category: Medical Code(s): M46.1 - Sacroiliitis, not elsewhere classified Plan Patient is experiencing worsening pain along the low back and bilateral hips. They did have limited range of motion of the lumbar spine along with point tenderness along bilateral SI joints and a positive bilateral Sharon's, Tanner's, Gaenslen's, compression and distraction exam. I did discuss with the patient that I do believe they would benefit from bilateral SI injections. Risk and benefits were discussed with the patient and they would like to proceed forward with this option. Patient has tried and failed conservative therapy. Patient has been actively doing conservative treatment including oral medication, heat and ice, topicals, at home exercising and stretching for longer than 12 weeks. Patient is having to adjust their activity based off the increased pain resulting in activity modification. I do believe the patient would benefit from SI injection. Patient has had SI injections in the past as this is a chronic condition that has been going on for longer than 6 months. Patient had her last injections in January that did provide 80% relief and lasted longer than 3 months. Patient may still be a candidate for SI fusion in future. We will continue to monitor this. This will be a therapeutic injection with less than 1.5 mL solution to be injected. Patient will be scheduled for bilateral SI injections under fluoroscopy. I did also review over with the patient due to her continuing chronic pain that I do believe she would benefit from the spinal cord stimulator trial. Risk and benefits were discussed with the patient regarding this procedure and she would like to proceed forward with this plan of care. Patient has continued conservative therapy and has also seen neurosurgery who was not recommending surgical intervention. Patient has tried and failed oral medications, heat and ice, topicals, physical therapy and continued at home stretching exercise for longer than 12 weeks. Patient will also be submitted for a spinal cord stimulator trial under fluoroscopy. We will plan on doing this in the [facility] due to the patient's worsening pain and not being able to be scheduled here sooner than June. Patient agrees with this plan of care. Patient has been instructed to contact the clinic with any concerns before the next appointment. Dr. Holguin has reviewed this note and agrees with this plan of care. This note was dictated using voice recognition software and make contain errors or omissions. All injections are used with Lidocaine or Bupivacaine and dexamethasone unless diagnostic in which no steroids were injected.
== END 2025-05-21 23:59 | disposition home or self-care (01) ==
LOC: SC.PAIN 14:16
PROVIDERS: PCP Family Medicine; Visit Provider Nurse Practitioner Family
DX: M46.1 Sacroiliitis, not elsewhere classified (principal); Z79.899 Other long term (current) drug therapy
CPT/HCPCS: 99212; G0463

== ENCOUNTER 2025-07-02 12:47 | Outpatient (CLI) | payer MEDICARE, SELFPAY ==
--- OUTSIDE RECORDS SUMMARY | 2024-12-30 17:30 | XMS_ITS ---
Author Organization [facility] Address [address] [place] [address] Care Team Providers Care Supervising Floorperson Name Role Phone Paul Mclaughlin Primary Care Provider [place], [place] Unavailable [phone] Paul Mclaughlin Unavailable Unavailable Migration, Provider Unavailable Unavailable Allergies Allergen (clinical drug ingredient) Drug/Non Drug Allergy documented on EMR Reaction Allergy Type Onset Date Status metoprolol Metoprolol dizziness Drug Allergy Activ e [facility] Conversion Encounter Medications Medication SIG (Take, Route, Frequency, Duration) Notes Start Date End Date Status Bisoprolol Fumarate 5 MG 1 tab(s) orally once a day; Duration: 90 days Active Singulair 10 MG 1 tab(s) orally once a day; Duration: 90 days Active busPIRone HCl 5 MG 1 tab(s) orally 2 times a day; Duration: 90 days Active Omeprazole 20 MG 1 cap(s) orally once a day; Duration: 90 days Active PROAIR HFA 90 MCG/INH 2 PUFF(S) INHALED 4 TIMES A DAY PRN; Duration: 90 DAYS *Please review for potential replacement for e-prescription and drug interaction check* Active Escitalopram Oxalate 10 MG 1 tab(s) orally once a day; Duration: 30 day(s) Active ASTELIN 2 SPRAY TWICE A DAY PRN *Please review for potential replacement for e-prescription and drug interaction check* Active Loratadine 10 MG 1 tab(s) orally once a day Active OXYGEN 2 LITERS DIRECTED DAILY at night *Plea se review for potential replacement for e-prescription and drug interaction check* Active IBU 600 MG 1 tab(s) orally three times a day prn; Duration: 30 day(s) 10/13/2019 Active Colestipol HCl 1 GM 1 tab(s) every monring and 2 tabs at bedtime orally 2 times a day Active Albuterol Sulfate (2.5 MG/3ML) 0.083% 3 mL by nebulizer every 6 hours prn Active Align 4 MG 1 CAP(S) ORALLY ONCE A DAY; Duration: 28 DAY(S) *Please review and pick correct strength-formulatio n from [employer] options. If intended option is not shown, discontinue and re-order from Quick Search* Active Simvastatin 20 MG 1 tab(s) orally once a day (at bedtime); Duration: 90 days Active Lisinopril 20 MG 1 tab(s) orally once a day; Duration: 90 days 06/20/2021 Active FiberCon 625 MG 2 tabs orally daily Active Trelegy Ellipta 100 MCG-62.5 MCG-25 MCG/INH 1 PUFF(S) INHALED ONCE A DAY; Duration: 90 DAYS *Please review and pick correct strength-formulatio n from [employer] options. If intended option is not shown, discontinue and re-order from Quick Search* Active Multivitamin - 1 tab(s) orally once a day; Duration: 30 day(s) Active Encounters Encounter Location Date Provider Diagnosis [facility] [place] [address] [facility] [address] [place] [address] 12/30/2024 Provider Migration Chronic obstructive pulmonary disease, unspecified COPD type J44.9 Assessments Encounter Date Diagnosis (ICD Code) Assessment Notes Treatment Notes Treatment Clinical Notes Section Notes 12/30/2024 Chronic obstructive pulmonary disease, unspecified COPD type (ICD-10 - J44.9) Plan Of Treatment Medication Medication Name Sig Start Date Stop Date Notes busPIRone HCl 5 MG 1 tab(s) orally 2 times a day; Duration: 90 days Escitalopram Oxalate 10 MG 1 tab(s) orally once a day; Duration: 30 day(s) Simvastatin 20 MG 1 tab(s) orally once a day (at bedtime); Duration: 90 days Lisinopril 20 MG 1 tab(s) orally once a day; Duration: 90 days 06/20/2021 Trelegy Ellipta 100 MCG-62.5 MCG-25 MCG/INH 1 PUFF(S) INHALED ONCE A DAY; Duration: 90 DAYS *Please review and pick correct strength-formulation from [employer] options. If intended option is not shown, discontinue and re-order from Quick Search* Progress Notes * Kaykay WALTER ADOB:01/1961 (64 yo F)Acc No.[id number]:12/30/2024 Patient: Kaykay MEDINA A Provider: Eben Zhao :1960 A ge:64 Y S ex:Female Date:12/30/2024 Address:[address] [place] [address], [facility], [id number] Pcp:Paul Mclaughlin Subjective: * Chief Complaints: * 1 . Multum To [facility] Conversion Encounter. * Medical History: * Medications: T aking Multivitamin - Tablet 1 tab(s) orally once a day , Taking FiberCon 625 MG Tablet 2 tabs orally daily , Taking Align 4 MG CAPSULE 1 CAP(S) ORALLY ONCE A DAY , Notes to Pharmacist: *Please review and pick correct strength-formulation from [employer] options. If intended option is not shown, [...] Electronic signature of Prov ider Migration on 07/02/2025 at 12:50 PM EDT Sign off status: Pending * Provider: Eben valdivia Migration Date: 0 12/30/2024 Generated for Jerzy gresham/Mango/Raf on: 1 12:50 PM EDT
--- OUTSIDE RECORDS SUMMARY | 2025-06-27 13:00 | XMS_ITS | Encounter Summary ---
Author Organization Healthcare Address [address] [place] [address] Care Team Providers Care Senior Data Warehouse Architect Name Role Phone Riat Spence DO Primary Care Provider [phone] Reason for Referral * Consultation (Routine) - Authorized Specialty Diagnoses / Procedures Referred By Marilyn bennett Referred To Contact Neurology Diagnoses Weakness Myopathy Darrel Cruz MD [address] [place] [address] Phone: tel: fax: Referral ID Status Reason Start Date Expiration Date Visits Requested Visits Authorized [id number] Authorized Specialty Services Required 06/27/2025 12/27/2026 1 1 Scheduling Instructions Need genetic testing for hereditary myopathies (including myotonic dystrophy type 1 and 2, Myotonia congenita and paramyotonia congenita) Reason for Visit * Reason Comments Consult * Consultation (Routine) - Closed Specialty Diagnoses / Procedures Referred By Marilyn bennett Referred To Contact Neurology Diagnoses Weakness generalized Myotonia Mckayla Diaz MD [address] [place] [address] [place] [address] Phone: tel: fax: Referral ID Status Reason Start Date Expiration Date V isits Requested Visits Authorized [id number] Closed Specialty Services Required 02/02/2025 08/04/2026 1 1 Encounter Details Date Type Department Care Team ([facility] st Contact Info) Description 06/27/2025 1:00 PM EDT Consult [facility] [address], [address] [place] [address] Darrel Cruz MD [address] [place] [address] Weakness (Primary Dx); Myopathy Social History Tobacco Use Types Packs/Day Years Used Date Smoking Tobacco: Former Cigarettes 1.5 84 0 09/27/1974 - 09/27/2018 Smokeless Tobacco: Never Tobacco Cessation:Counseling Given: Not Answered Alcohol Use Standard Drinks/Week Comments Defer 0 (1 standard drink = 0.6 oz pur e alcohol) PHQ-2 Answer Date Recorded Patient Health Questionnaire-2 Score 0 06/27/2025 PHQ-9 Answer Date Recorded Patient Health Questionnaire-9 Score 5 06/27/2025 Comments Unknown Sex and Gender Information Value Date Recorded Sex Assigned at Female 03/20/2024 3:24 PM EDT Legal Sex Female 7:51 PM EDT Gender Identity Female 12/19/2024 4:01 PM EDT Sexual Orientation Not on file documented as of this encounter Last Filed Vital Signs Vital Sign Reading Time Taken Comments Blood Pressure 141/91 06/27/2025 12:58 PM EDT Pulse 86 06/27/2025 12:58 PM EDT Temperature 36.9 C (98.4 F) 06/27/2025 12:58 PM EDT Respiratory Rate - - Oxygen Saturation 96% 06/27/2025 12: 58 PM EDT Inhaled Oxygen Concentration - - Weight 83.9 kg (184 lb 15.5 oz) 025 12:58 PM EDT Height 157.5 cm (5' 2 ) 06/27/2025 12:5 8 PM EDT Body Mass Index 33.83 06/27/2025 12:58 PM EDT documented in this encounter Functional Status * Over the past 2 weeks, how often have you been bothered by any of the following problems? Question Answer Date of Assessment Author Little interest or pleasure in doing things Not at all 06/27/2025 12:56 PM EDT Sweat, Summa L Feeling down, depressed, or hopeless Not at all 06/27/2025 12:56 PM EDT Sweat, Summa L Patient Health Questionnaire -2 Score 0 06/27/2025 12:56 PM EDT Sweat Summa L * Question Answer Date of Assessment Author Trouble falling or staying asleep, or sleeping too much Not at all 06/27/2025 12:56 PM EDT Sweat, Summa L Feeling tired or having little energy Nearly every day 06/27/2025 12:56 PM EDT Sweat, Summa L Poor appetite or overeating Not at all 06/27/2025 12 :56 PM EDT Sweat, Summa L Feeling bad about yourself - or that you are a failure or have let yourself or your family down Not at all 06/27/2025 12:56 PM EDT Sweat, Summa L Trouble concentrating on things, such as reading the newspaper or watching television Several days 06/27/2025 12:56 PM EDT Sweat, Summa L Moving or speaking so slowly that other people could have noticed? Or the opposite - being so fidgety or restless that you have been moving around a lot more than usual. Several days 06/27/2025 12:56 PM EDT Sweat Summa L Thoughts that you would be better off or hurting yourself in some way Not at all 06/27/2025 12:56 PM EDT Sweat Summa L Patient Health Questionnaire-9 Score 5 06/27/2025 12:56 PM EDT Sweat Summa L * How difficult have these problems made it for you to do your work, take care of things at home, or get along with other people? Answer Date of Assessment Author Somewhat difficult 06/27/2025 12:56 PM EDT Sweat Summa L documented as of this encounter Miscellaneous Notes * Progress Notes - Darrel Cruz MD - 06/27/2025 1:00 PM EDT Images from the original note were not included. [facility] Mckayla Diaz MD [address] [place] [address] PATIENT: Ms. Kaykay Wakefield MR NO: [id number] DATE OF : 1960 DATE OF VISIT: 06/27/[address] Diaz, Thank you for requesting consultation regarding the diagnosis and treatment of Ms. Kaykay Wakefield. She is a 64 y.o. female seen today in our [facility] for concern of muscle weakness andmyopathy . She comes today accompanied by her , who contributes to the history. 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 She did not play much sport in school. Denies any difficulty running as a kid. She worked at [employer], in a [employer]. About 10 years back, she noted difficulty from getting up from floor and lower seats position. Overthe years, weakness progressed. Few years back, she noted difficulty throwing a ball, playing volleyball. Her arms started getting tired on washing her hair. She mentioned having difficulty swallowing. Food get stuck at the back of the throat. She has to drink water to get it down. She sometime chokes on dry food. She denies any difficulty with chewing. She denies any weight loss. She mentioned having intermittent constipation and diarrhea. She reported having intermittent blurry vision, rare episode of double vision, unclear if mono-ocular or binocular. She reported some episodes of droopingof eyes and mouth, got better with facial exercises. She denies any neck weakness. She had episodesof incontinence in past but not currently. She started using a walker for ambulation in 2019. In the last few years, she has been experiencing episodes of excessive weakness in her arms and legs, described as them getting stuck where she is unable to move them for variable amount of time, generally few seconds. She doesn't loose consciousness during these episodes. These episodes have occurred twice in the last few years. She mentioned having some stiffness in her legs in the morning and after sitting for a long time. She has noted decline in the muscle bulk in her calves over time. Shementioned having a couple episodes of difficulty opening her hands. She think symptoms are worse inwinters and after exertion. She also reported having difficulty with her memory and comprehending words. She was admitted to [facility] in Oct 2024 for concern of spells of whole body jerking followed by appearing frozen with inability to move. While on EEG monitoring, she had few body jerks that were not epileptic in origin. Continuous EEG recordings showed abnormalities including occasional sharply contoured slow waves and sharp waves in the central parietal and temporal electrodes. MRI brain ([facility]) in November 2024 per notes (no images available) showed persistent nodular enhancement along the undersurface of calvarium unchanged from prior exam. May represent dural/calvarial enhancement. Seen by hematology/oncology, per their assessment, unlikely that these were less likely to be from prior malignancy. Cramps: Sometime. Stiffness: Yes Dark/Zelda-cola colored urine: None Myotonia: Yes Fasciculations: No Myoclonic movements: Yes Sensory: None Family history: Sister had some type of muscle dystrophy, she 10 years back. She had difficulty with ambulation. Mom had CAD and weakness in her legs. She has 2 kids (Son is 46, daughter is 44).Daughter has some episodes of pain in her body. Medical history: COPD, IBS, HTN, PVC, Afib, HLD, RLS, breast cancer s/p right- sided partial mastectomy, chemotherapy and radiation (2000) Endocrine or autoimmune illness: None Social: She drink alcohol occasionally, denies smoking, recreational drug use. Past workup: I reviewed records of office visits, imaging, lab values today. Records scanned into [employer]. Labs: 08/2024-10/2024: Abnormal: BMP: Tax Advisor: 0.44 L, glucose: 103 Normal/negative: RF, CCP, DAYNE, Anti SCM, Centromere Ab, Myositis panel, TSH, Aldolase, CK, ESR, CRP, MUSK, MG ab panel. MRI brain: 12/07/2024: Per report, no images available: Persistent nodular enhancement along the undersurface of calvarium unchanged from prior exam. May represent dural/calvarial enhancement. CEE11/23/2024: CLINICAL INTERPRETATION: Per report: There was one event reported during the period of monitoring. The patient was off camera view and reported to a nurse having a body jerk. Concomitant EEG showed no change from baseline background activity. The reported event was therefore nonepileptic in origin. Continuous EEG recordings showed focal slow wave activity in the temporal electrodes, consistent with focal cerebral dysfunction in the temporal regions. Rare sharp waves were seen in the left temporal electrodes raising the possibilityof potential epileptogenicity in the left temporal region. EM11/02/2024: Chronic, non irritative myopathic process affecting left proximal and distal upper extremity with myotonia limited to biceps muscle. Chronic, left L4-S1 radiculopathy of mild electrophysiologic severity. XR C and T spine: 10/09/2024: Moderate degenerative disc changes at C4-C5 and C5-C6. 2.Moderate degenerative disc changes at T12-L1. Review of Systems: Pertinent positives are as noted in the HPI. A 14-system review was performed and was otherwise unremarkable. Physical Examination: Neurologic & Musculoskeletal Examination: Mental Status: Oriented to person, place, and time. Normal memory for recent and remote events. Attention span and concentration are normal during examination and command following. Fund of knowledge is appropriate. Language is normal without evidence of dysphasia. Cranial nerves: Pupils equal and reactive to light. Visual vick full. Extraocular movements full and no diplopia elicited. No ptosis. Normal facial sensation and strength. Normal hearing to finger rub. Normal elevation of the palate and uvula. Speech normal in quality. Trapezius full strength. Tongue normal in bulk and strength. Motor: Reduced muscle bulk in bilateral calves. Normal tone in all 4 limbs. No evidence of percussion, yarn dry room worker and eyelid closure myotonia. Neck flexion 5 Neck extension 5 Muscle Right Left Muscle Right Left Shoulder ABD 5 5 Hip flexion 4+ 4+ Elbow Flex 5 5 Thigh Adduction 5 5 Elbow Ext 5 5 Thigh Abduction 5- 5- Wrist Ext 5 5 Knee Ext 5 5 Wrist Flex 5 5 Knee Flex 5 5 Finger Ext 5 5 Ankle DF 5 5 Finger Flex @ D2 5 5 Ankle PF 5 5 Finger Flex @ D5 5 5 Ankle Ever 5 5 FDI 5 5 Ankle Inver 5 5 ADM 5 5 EHL 5 5 Thumb APB 5 5 EDB 5 5 Toe Flex 5 5 Vibration Right (Seconds) Left (Seconds) Toe 8 8 Pinprick: Mildly reduced at dorsum of bilateral toes. Stretch Reflexes: Reflexes Right Left Biceps 2+ 2+ Brachioradialis 2+ 2+ Triceps 2+ 2+ Patellar 2+ 2+ Achilles 1 Trace Plantar responses downgoing bilaterally. No hoffmans Cerebellar: Finger to nose: No dysmetria. Gait: Significant difficulty in getting up from a low chair. Rombergs negative, no swaying noted onwalking. Able to stand on heels and toes. Difficulty with walking in tandem. Impression: Myopathy with electrophysiologic myotonia Progressive muscle weakness Family history of muscular dystrophy (Sister) COPD Afib H/o Breast cancer s/p right-sided partial mastectomy, chemotherapy and radiation (2000) Ms. Kaykay Wakefield is a 64 y.o. female who presents for the evaluation of progressive muscle weakness of over 10 year duration. Of note, her sister had some sort of muscular dystrophy . Examination shows proximal bilateral lower extremity weakness. She has mildly reduced sensation to pinprick at dorsum of toes and reduced ankle reflexes. EMG testing showed chronic, non irritative myopathic process affecting left proximal and distal upper extremity with myotonia limited to biceps muscle. Inaddition, she had chronic, mild left L4-S1 radiculopathy. Progressive proximal muscle weakness and electrophysiologic evidence of myopathic changes raise concern for myopathy, likely hereditary as her sister also had some type of muscle problem. She describe episode of what appears to be myotonia (difficulty opening her hands, getting stuck for few seconds). Clinically, I did not appreciate any percussion, yarn dry room worker or eyelid myotonia. On EMG, myotonic changes were limited to left biceps. These findings require additional workup. I recommended obtaining genetic testing for hereditary muscle diseases including LGMD, DM1, DM2, myotonia congenita and paramyotonia congenita. I performed brief pre genetic testing counseling, explained how genetic testing works and that we can expect to see 3 different results. A positive test which identifies a disease causing mutation, a negative test and a variant of unclear clinical significance which may or may not be associated with disease and need to be interpreted with caution. She is interested in proceeding with genetic testing. I will refer her to our genetic counselor to obtain the genetic testing. If genetic testing is inconclusive, will obtain muscle biopsy of left biceps. I will order additional myopathy lab workup today. I discussed my diagnostic impression and next steps in detail with the patient who agrees with the plan. Recommendations: (1) Ordered labs: CK, aldolase, TSH, PTH, Vit D, SPEP, TEMO, A1c, B12, MMA, Folate, Myositis ab, HMGCR ab. (2) Referred to genetic counselor to obtain genetic testing (LGMD, DM1, DM1, MC and PMC) Thank you again for the opportunity to participate in the care of Ms. Kaykay Wakefield. I look forward to seeing her in 4 months. Sincerely, Darrel Cruz MD [facility] Department of Neurology [facility]. Counseling Documentation: The patient and was counseled regarding diagnostic results, prognosis, risk factor reductions, instructions for management, patient and family education, and impressions. Education provided was verbal counseling. Additional time was spent in care coordination including additional diagnostic research and medicalrecord review. The total time of encounter was 70 minutes and greater than 50% of the visit was spent in counseling/coordination of care. . documented in this encounter Plan of Treatment Upcoming Encounters Date Type Department Care Team (Late st Contact Info) Description 01/07/2026 2:00 PM EDT Office Visit [facility] [address], [address] [place] [address] Darrel Cruz MD [address] [place] [address] Pending Results Name Type Priority Associated Diagnoses Date /Time Immunofixation Electrophoresis Lab Routine Weakness Myopathy 06/27/2025 2:36 PM EDT Myositis Antibody Panel Lab Routine Weakness Myopathy 06/27/2025 2:36 PM EDT HMGCR AB IGG (SO) Lab Routine Weakness Myopathy 06/27/2025 2:36 PM EDT Scheduled Orders Name Type Priority Associated Diagnoses Orde r Schedule Immunofixation Electrophoresis Lab Routine Weakness Myopathy Expected: 06/27/2025 (Approximate), Expires: 12/26/2026 Myositis Antibody Panel Lab Routine Weakness Myopathy Expected: 06/27/2025 (Approximate), Expires: 12/29/2026 HMGCR AB IGG (SO) Lab Routine Weakness Myopathy Expected: 06/27/2025 (Approximate), Expires: 12/29/2026 Scheduled Referrals Name Type Priority Associated Diagnoses Order Schedule Ambulatory referral to Neurology Genetics Outpatient Referral Routine Weakness Myopathy 1 Occurrences starting 06/27/2025 until 12/29/2026 documented as of this encounter Results * Folate (06/27/2025 2:36 PM EDT) Folate, Serum 17.2 >4.6 ng/mL 06/27/2025 6:30 PM EDT [facility] Blood Venous blood specimen / Unknown Venipuncture / Unknown 06/27/2025 2:36 PM EDT 06/27/2025 2:37 PM EDT us Darrel Cruz MD LAB BLOOD ORDERABLES Final Resul t Performing Organization Address [facility] Co de Phone Number [facility] [address] [place] [address] * (ABNORMAL) Hemoglobin A1c (06/27/2025 2:36 PM EDT) Hemoglobin A1c 6.0(H) <5.7 % 06/27/2025 7:10 PM EDT [facility] Blood Venous blood specimen / Unknown Venipuncture / Unknown 06/27/2025 2:36 PM EDT 06/27/2025 2:37 PM EDT Narrative [facility] - 06/27/2025 7:10 PM EDT HA1C Interpretive Data: Diagnosis of Diabetes: Diabetic > or = 6.5% Pre-diabetic 5.7 to 6.4% Non-diabetic < or = 5.6% Glycemic Targets for Type I and Type II Diabetics: Non- Adults <7.0% Adults <6.0% Children and Adolescents <7.5% Source: [place] [employer]. Standards of medical care in diabetes,2017. Diabetes Care.2017:40 (suppl 1):S1-S135. us Darrel Cruz MD LAB BLOOD ORDERABLES Final Resul t Performing Organization Address [facility] Co de Phone Number [facility] [address] [place] [address] * Methylmalonic Acid (06/27/2025 2:36 PM EDT) Methylmalonic Acid 172 50 - 400 nmol/L 06/30/2025 9:58 AM EDT [facility] Blood Venous blood specimen / Unknown Venipuncture / Unknown 06/27/2025 2:36 PM EDT 06/27/2025 2:37 PM EDT Narrative [facility] - 06/30/2025 9:58 AM EDT Test performed by LC-MS/MS at the [facility]. This test was developed and its performance characteristics determined by [facility]. It has not been cleared or approved by the FDA. The laboratory is regulated under CLIA as qualified to perform high-complexity testing. This test is used for clinical purposes. us Darrel Cruz MD LAB BLOOD ORDERABLES Final Resul t Performing Organization Address [facility] Co de Phone Number [facility] [address] [place] [address] * Vitamin B12, Serum (06/27/2025 2:36 PM EDT) Vitamin B12, Serum 529 210 - 1,033 pg/mL 06/27/2025 6:30 PM EDT [facility] Blood Venous blood specimen / Unknown Venipuncture / Unknown 06/27/2025 2:36 PM EDT 06/27/2025 2:37 PM EDT us Darrel Cruz MD LAB BLOOD ORDERABLES Final Resul t Performing Organization Address [facility] Co de Phone Number [facility] [address] [place] [address] * TSH Reflex FT4 (06/27/2025 2:36 PM EDT) Thyroid Stimulating Hormone, Plasma 2.32 0.40 - 4.20 uIU/mL 06/27/2025 5:51 PM EDT [facility] Blood Venous blood specimen / Unknown Venipuncture / Unknown 06/27/2025 2:36 PM EDT 06/27/2025 2:37 PM EDT us Darrel Cruz MD LAB BLOOD ORDERABLES Final Resul t Performing Organization Address [facility] Co de Phone Number [facility] [address] [place] [address] * Vitamin D 1,25 dihydroxy (06/27/2025 2:36 PM EDT) VITAMIN D, 1, 25-DIHYDROXY 36.0 19.9 - 79.3 pg/mL 06/28/2025 5:03 AM EDT [facility] Blood Venous blood specimen / Unknown Venipuncture / Unknown 06/27/2025 2:36 PM EDT 06/27/2025 2:37 PM EDT us Darrel Cruz MD LAB BLOOD ORDERABLES Final Resul t [facility] [address] [place] [address] * Aldolase (06/27/2025 2:36 PM EDT) ALDOLASE 3.6 1.2 - 7.6 U/L 06/30/2025 2:09 PM EDT [facility] ([facility]) Blood Venous blood specimen / Unknown Venipuncture / Unknown 06/27/2025 2:36 PM EDT 06/27/2025 2:37 PM EDT Narrative [facility] ([facility]) - 06/30/2025 2:09 PM EDT REFERENCE INTERVAL: Aldolase Access complete set of age- and/or gender-specific reference intervals for this test in the [facility] Test Directory ([employer] Performed By: [facility] [address] [place] [address] Funeral Director And Embalmer: Kevin Min MD, PhD CLIA Number: [id number] Result [facility] us Darrel Cruz MD LAB BLOOD ORDERABLES Final Resul t Performing Organization Address [facility] de Phone Number [facility] ([facility]) [address] [place] [address] * Creatine Kinase, Total, Plasma (06/27/2025 2:36 PM EDT) Creatine Kinase, Plasma 41 37 - 168 U/L 06/27/2025 5:51 PM EDT [facility] Blood Venous blood specimen / Unknown Venipuncture / Unknown 06/27/2025 2:36 PM EDT 06/27/2025 2:37 PM EDT Result Lauren Cruz MD LAB BLOOD ORDERABLES Final Resul t [facility] [address] [place] [address] documented in this encounter Visit Diagnoses Diagnosis Weakness- Primary Other malaise and fatigue Myopathy Unspecified myopathy documented in this encounter Additional Health Concerns Assessment Noted Time PHQ-9 Depression Total Score: 5 06/27/20 25 12:56 PM EDT A fall risk assessment has been complete d for the patient 06/27/2025 12:55 PM EDT A Body Mass Index follow-up plan has been documented for the patient 06/29/2025 1:03 AM EDT documented as of this encounter Care Teams Senior Data Warehouse Architect Relationship Specialty Start Date End Date Rita Spence DO [address] [place] [address] PCP - General 11/20/24 documented as of this encounter
--- OUTSIDE RECORDS SUMMARY | 2025-06-27 14:20 | XMS_ITS | Encounter Summary ---
Author Organization [facility] Address [address] [place] [address] Care Team Providers Care Construction Coordinator Name Role Phone Rita Spence DO Primary Care Provider [phone] Encounter Details Date Type Department Care Team ([facility] st Contact Info) Description 06/27/2025 2:20 PM EDT Clinical Support Professional [facility] [address] [facility] [place] [address] Weakness; Myopathy Social History Tobacco Use Types Packs/Day [...] on file documented as of this encounter Functional Status * Over the [...] -2 Score 0 06/27/2025 12:56 PM EDT Sweat, Summa L * Question Answer Date of Assessment Author Trouble falling or staying asleep, or sleeping too much Not at all 06/27/2025 12:56 PM EDT SweatKen Feeling tired or having little energy Nearly every day 06/27/2025 12:56 PM EDT SweatKen L Poor appetite or overeating Not at all 06/27/2025 12 :56 PM EDT SweatKen Feeling bad about yourself - or that you are a failure or have let yourself or your family down Not at all 06/27/2025 12:56 PM EDT SweatKen Trouble concentrating on things, such as reading the newspaper or watching television Several days 06/27/2025 12:56 PM EDT SweatKen Moving or speaking so slowly that other people could have noticed? Or the opposite - being so fidgety or restless that you have been moving around a lot more than usual. Several days 06/27/2025 12:56 PM EDT SweatKen Thoughts that you would be better off or hurting yourself in some way Not at all 06/27/2025 12:56 PM EDT SweatKen Patient Health Questionnaire-9 Score 5 06/27/2025 12:56 PM EDT Ken Penaloza * How difficult have these problems made it for you to do your work, take care of things at home, or get along with other people? Answer Date of Assessment Author Somewhat difficult 06/27/2025 12:56 PM EDT Ken Penaloza documented as of this encounter Plan of Treatment Upcoming Encounters Date Type Department Care Team (Late st Contact Info) Description 01/07/2026 2:00 PM EDT Office Visit [facility] [address] [facility], [address] [place] [address] Darrel Cruz MD [address] [facility] [address] [place] [address] Pending Results Name Type Priority Associated Diagnoses Date /Time Immunofixation Electrophoresis Lab Routine Weakness Myopathy 06/27/2025 2:36 PM EDT [facility] AB IGG (SO) Lab Routine Weakness Myopathy 06/27/2025 2:36 PM EDT Myositis Antibody Panel Lab Routine Weakness Myopathy 06/27/2025 2:36 PM EDT Immunofixation Electrophoresis Lab Routine Weakness Myopathy 06/27/2025 2:36 PM EDT documented as of this encounter Procedures Procedure Name Priority Date/Time Associated Diagnosis Comments QIG, SERUM Routine 06/27/2025 2:36 PM EDT Weakness Myopathy TSH REFLEX FT4 Routine 06/27/2025 2:36 PM EDT Weakness Myopathy TOTAL PROTEIN, SERUM Routine 06/27/2025 2:36 PM EDT Weakness Myopathy PROTEIN ELECTROPHORESIS, SERUM Routine 06/27/2025 2:36 PM EDT Weakness Myopathy PROTEIN ELECTROPHORESIS, PATHOLOGIST INTERPRETATION Routine 06/27/2025 2:36 PM EDT Weakness Myopathy IONIZED CALCIUM, SERUM Routine 2:36 PM EDT Weakness Myopathy CREATINE KINASE, TOTAL, PLASMA Routine 06/27/2025 2:36 PM EDT Weakness Myopathy IG PROFILE Routine 06/27/2025 2:36 PM EDT Weakness Myopathy METHYLMALONIC ACID SERUM Routine 06/27/2025 2:36 PM EDT Weakness Myopathy PTH PANEL 1 Routine 06/27/2025 2:36 PM EDT Weakness Myopathy ALDOLASE Routine 06/27/2025 2:36 PM EDT Weakness Myopathy VITAMIN D, 1, 25-DIHYDROXY Routine 06/27/2025 2:36 PM EDT Weakness Myopathy PROTEIN ELECTROPHORESIS, SERUM Routine 06/27/2025 2:36 PM EDT Weakness Myopathy PTH INTACT TOTAL Routine 06/27/2025 2:36 PM EDT Weakness Myopathy HEMOGLOBIN A1C Routine 06/27/2025 2:36 PM EDT Weakness Myopathy FOLATE, SERUM Routine 06/27/2025 2:36 PM EDT Weakness Myopathy VITAMIN B12, SERUM Routine 06/27/2025 2: 36 PM EDT Weakness Myopathy documented in this encounter Results * (ABNORMAL) IG Profile (06/27/2025 2:36 PM EDT) IGA 112 75 - 400 mg/dL 06/28/2025 3:45 PM EDT [facility] IGG 600(L) 720 - 1,589 mg/dL 06/28/2025 3:45 PM EDT [facility] IGM 60 35 - 225 mg/dL 06/28/2025 3:45 PM EDT [facility] Blood Venous blood specimen / Unknown Venipuncture / Unknown 06/27/2025 2:36 PM EDT 06/27/2025 2:37 PM EDT us Darrel Cruz MD LAB BLOOD ORDERABLES Final Resul t [facility] [address] [id number] * Protein electrophoresis serum, pathologist interpretation (06/27/2025 2:36 PM EDT) Clinical Diagnosis, SPEP Weakness; Myopathy 06/28/2025 11:23 AM EDT [facility] Interpretation , SPEP The otherwise unremarkable protein electrophoretic pattern reveals a mildly irregular contour of the gamma region, which could represent a monoclonal protein in low concentration. Correlate with the pending results of serum immunofixation electrophoresis. A resident was involved in the service. I attest I examined the relevant preparations for the specimens and confirmed the diagnosis or interpretation. 06/28/2025 11:23 AM EDT [facility] Pathologist Signature, SPEP Reviewed by: Giovanni Hanson MD 06/28/2025 11:23 AM EDT [facility] CP ASR DISCLAIMER Yes 06/28/2025 11:23 AM EDT [facility] Blood Venous blood specimen / Unknown Venipuncture / Unknown 06/27/2025 2:36 PM EDT 06/27/2025 2:37 PM EDT us Darrel Cruz MD LAB PATHOLOGY ORDERABLES Final R esult Performing Organization Address City/[facility] [address]/ZIP Co de Phone Number [facility] [address] [place] [address] * Ionized calcium, serum (06/27/2025 2:36 PM EDT) Ionized Calcium, Serum 5.0 4.6 - 5.3 mg/dL LAB HEMATOLOGY METHOD 06/27/2025 5:36 PM EDT [facility] Blood Venous blood specimen / Unknown Venipuncture / Unknown 06/27/2025 2:36 PM EDT 06/27/2025 2:37 PM EDT us Darrel Cruz MD LAB BLOOD ORDERABLES Final Resul t Performing Organization Address [facility] de Phone Number [facility] [address] [place] [address] * (ABNORMAL) PTH Intact Total (06/27/2025 2:36 PM EDT) PTH Intact Total 107(H) 9 - 77 pg/mL 06/27/2025 6:22 PM EDT [facility] Blood Venous blood specimen / Unknown Venipuncture / Unknown 06/27/2025 2:36 PM EDT 06/27/2025 2:37 PM EDT Narrative [facility] - 06/27/2025 6:22 PM EDT Assay performed by immunoassay at the [facility]. Performed on [employer]isher chemiluminescent immunoassay, tractable to the World Health Organization's first international standard for PTH from the NIBS, Code 79/500. Results obtained from different test methods or kits cannot be used interchangeably. us Darrel Cruz MD LAB BLOOD ORDERABLES Final Resul t [facility] [address] [place] [address] * Total Protein, Serum (06/27/2025 2:36 PM EDT) Total Protein 6.9 6.2 - 7.7 g/dL 06/27/2025 6:24 PM EDT [facility] Blood Venous blood specimen / Unknown Venipuncture / Unknown 06/27/2025 2:36 PM EDT 06/27/2025 2:37 PM EDT us Darrel Cruz MD LAB BLOOD ORDERABLES Final Resul t [facility] [address] [place] [address] * Protein Electrophoresis, Serum (06/27/2025 2:36 PM EDT) Albumin Electrophoresis, Serum 4.2 3.6 - 4.7 g/dL 06/28/2025 2:36 AM EDT [facility] Alpha 1 Globulin Electrophoresis, Serum 0.3 0.2 - 0.4 g/dL 06/28/2025 2:36 AM EDT [facility] Alpha 2 Globulin Electrophoresis, Serum 0.9 0.5 - 0.9 g/dL 06/28/2025 2:36 AM EDT [facility] Beta 1 Globulin Electrophoresis, Serum 0.5 0.3 - 0.5 g/dL 06/28/2025 2:36 AM EDT [facility] Beta 2 Globulin Electrophoresis, Serum 0.4 0.2 - 0.5 g/dL 06/28/2025 2:36 AM EDT [facility] Gamma Globulin Electrophoresis, Serum 0.6 0.6 - 1.5 g/dL 06/28/2025 2:36 AM EDT [facility] Interpretation, Serum Protein Electrophoresis Pathology report to follow. 06/28/2025 2:36 AM EDT [facility] Blood Venous blood specimen / Unknown Venipuncture / Unknown 06/27/2025 2:36 PM EDT 06/27/2025 2:37 PM EDT us Darrel Cruz MD LAB BLOOD ORDERABLES Final Resul t Performing Organization Address City/[facility] [address]/ZIP Co de Phone Number [facility] [address] [place] [address] * (ABNORMAL) QIG, Serum (06/27/2025 2:36 PM EDT) IGA 114 75 - 400 mg/dL 06/27/2025 6:24 PM EDT [facility] IGG 598(L) 720 - 1,589 mg/dL 06/27/2025 6:24 PM EDT [facility] IGM 60 35 - 225 mg/dL 06/27/2025 6:24 PM EDT [facility] Blood Venous blood specimen / Unknown Venipuncture / Unknown 06/27/2025 2:36 PM EDT 06/27/2025 2:37 PM EDT us Darrel Cruz MD LAB BLOOD ORDERABLES Final Resul t Performing Organization Address City/[facility] [address]/ZIP Co de Phone Number [facility] [address] [place] [address] * Creatine Kinase, Total, Plasma (06/27/2025 2:36 PM EDT) Pathologist [facility] Creatine Kinase, Plasma 41 37 - 168 U/L 06/27/2025 5:51 PM EDT [facility] Blood Venous blood specimen / Unknown Venipuncture / Unknown 06/27/2025 2:36 PM EDT 06/27/2025 2:37 PM EDT us Darrel Cruz MD LAB BLOOD ORDERABLES Final Resul t [facility] [address] [place] [address] * Aldolase (06/27/2025 2:36 PM EDT) ALDOLASE 3.6 1.2 - 7.6 U/L 06/30/2025 2:09 PM EDT [facility] ([place]) Blood Venous blood specimen / Unknown Venipuncture / Unknown 06/27/2025 2:36 PM EDT 06/27/2025 2:37 PM EDT Narrative [facility] ([place]) - 06/30/2025 2:09 PM EDT REFERENCE INTERVAL: Aldolase Access complete set of age- and/or gender-specific reference intervals for this test in the [facility] Test Directory ([employer]). Performed By: [email or web address] [address] [place] [id number] Medical Assistant Cardiology: Kevin Min MD, PhD CLIA Number: [id number] us Darrel Cruz MD LAB BLOOD ORDERABLES Final Resul t Performing Organization Address City/[facility] [address]/ZIP Co de Phone Number [facility] ([place]) [address] [place] [address] * Vitamin D 1,25 dihydroxy (06/27/2025 2:36 PM EDT) VITAMIN D, 1, 25-DIHYDROXY 36.0 19.9 - 79.3 pg/mL 06/28/2025 5:03 AM EDT [facility] Blood Venous blood specimen / Unknown Venipuncture / Unknown 06/27/2025 2:36 PM EDT 06/27/2025 2:37 PM EDT Result Lauren Cruz MD LAB BLOOD ORDERABLES Final Resul t Performing Organization Address City/[facility] [address]/ZIP Co de Phone Number [facility] [address] [place] [address] * TSH Reflex FT4 (06/27/2025 2:36 PM EDT) Thyroid Stimulating Hormone, Plasma 2.32 0.40 - 4.20 uIU/mL 06/27/2025 5:51 PM EDT [facility] Blood Venous blood specimen / Unknown Venipuncture / Unknown 06/27/2025 2:36 PM EDT 06/27/2025 2:37 PM EDT Result Lauren Cruz MD LAB BLOOD ORDERABLES Final Resul t [facility] [address] [place] [address] * Vitamin B12, Serum (06/27/2025 2:36 PM EDT) Vitamin B12, Serum 529 210 - 1,033 pg/mL 06/27/2025 6:30 PM EDT [facility] Blood Venous blood specimen / Unknown Venipuncture / Unknown 06/27/2025 2:36 PM EDT 06/27/2025 2:37 PM EDT Darrel Cruz MD LAB BLOOD ORDERABLES Final Resul t Performing Organization Address City/[facility] [address]/ZIP Co de Phone Number [facility] [address] [place] [address] * Methylmalonic Acid (06/27/2025 2:36 PM EDT) Methylmalonic Acid 172 50 - 400 nmol/L 06/30/2025 9:58 AM EDT [facility] Blood Venous blood specimen / Unknown Venipuncture / Unknown 06/27/2025 2:36 PM EDT 06/27/2025 2:37 PM EDT Narrative [facility] - 06/30/2025 9:58 AM EDT Test performed by LC-MS/MS at the [facility]. This test was developed and its performance characteristics determined by [facility]. It has not been cleared or approved by the FDA. The laboratory is regulated under CLIA as qualified to perform high-complexity testing. This test is used for clinical purposes. us Darrel rCuz MD LAB BLOOD ORDERABLES Final Resul t [facility] [address] [place] [address] * (ABNORMAL) Hemoglobin A1c (06/27/2025 2:36 PM EDT) Hemoglobin A1c 6.0(H) <5.7 % 06/27/2025 7:10 PM EDT [facility] Blood Venous blood specimen / Unknown Venipuncture / Unknown 06/27/2025 2:36 PM EDT 06/27/2025 2:37 PM EDT Narrative [facility] - 06/27/2025 7:10 PM EDT HA1C Interpretive Data: Diagnosis of Diabetes: Diabetic > or = 6.5% Pre-diabetic 5.7 to 6.4% Non-diabetic < or = 5.6% Glycemic Targets for Type I and Type II Diabetics: Non- Adults <7.0% Adults <6.0% Children and Adolescents <7.5% Source: [place] [employer]. Standards of medical care in diabetes,2017. Diabetes Care.2017:40 (suppl 1):S1-S135. Darrel Cruz MD LAB BLOOD ORDERABLES Final Resul t Performing Organization Address [facility] Co de Phone Number [facility] [address] [place] [address] * Folate (06/27/2025 2:36 PM EDT) Folate, Serum 17.2 >4.6 ng/mL 06/27/2025 6:30 PM EDT [facility] Blood Venous blood specimen / Unknown Venipuncture / Unknown 06/27/2025 2:36 PM EDT 06/27/2025 2:37 PM EDT us Darrel Cruz MD LAB BLOOD ORDERABLES Final Resul t Performing Organization Address [facility] Co de Phone Number [facility] [address] [place] [address] documented in this encounter Visit Diagnoses Diagnosis Weakness Other malaise and fatigue Myopathy Unspecified myopathy [...] documented as of this encounter Care Teams Construction Coordinator Relationship Specialty Start Date End Date Rita Spence DO [address] [place], [place] [address] [place] [address] (work) PCP - General 11/20/24 documented as of this encounter
--- NOTE | 2025-07-02 12:50 | MM_ITS ---
PROCEDURE INFORMATION: Exam: MG Bilateral Screening 3D Mammography Exam date and time: 07/02/2025 1:33 PM Age: 64 years old Clinical indication: Screening examination; Personal history of right breast cancer; Lumpectomy TECHNIQUE: Imaging protocol: Bilateral Screening tomosynthesis and 2D mammography including computer-aided detection (CAD) when performed. COMPARISON: 1. MG MM DIG SCREENING MAMM BI W/CAD 02/12/2021 10:38 AM 2. MG SCBI MM Dig screening mamm BI w/CAD 09/13/2018 11:00 AM FINDINGS: MAMMOGRAPHY: Breast composition: There are scattered areas of fibroglandular density. Mass: None. Architectural distortion: Stable post operative architectural distortion in the right upper outer quadrant due to prior lumpectomy for carcinoma. Calcifications: No suspicious calcifications. Asymmetric density: None. Skin thickening: None. Axillary adenopathy: None. IMPRESSION: 1. No mammographic evidence of malignancy. Annual screening is recommended unless otherwise clinically indicated. 2. In women diagnosed with breast cancer before age 50 or with personal histories of breast cancer and dense breasts, the [place] [employer] recommends annual supplemental MRI in addition to yearly mammography. Alternative supplemental studies may include breast sonography or contrast enhanced mammography. Please be aware that your insurance company will determine whether they will cover the cost of such screening, despite the recommendation of your doctors and the [employer] [place] [employer]. It is your responsibility to determine your insurance benefits. ASSESSMENT: BI-RADS Category 2: Benign.
--- NOTE | 2025-07-02 12:50 | XR_ITS ---
FINAL REPORT TECHNIQUE: Bone densitometry calculations of the lumbar spine and left hip were obtained. CLINICAL HISTORY: SCREENING COMPARISON: None FINDINGS: Using L1-4, the bone mineral density of the spine is 1.007 g/cm2, corresponding to T-score of -0.4 and a Z score of 1.4. This is within the range of normal limits. Using the left hip, the bone mineral density of the femoral neck is 0.739 g/cm2, corresponding to a T-score of -1.7 and a Z-score of -0.4. This is within the range of osteopenia. FRAX 10 year fracture risk is 0.7% for a hip fracture and 0.0% for a major osteoporotic fracture. NOTE: T-score: Standard deviation compared with peak bone mass of young adult mean. *Following the recommendations of the International Society of Bone densitometry, classification of hip BMD is based on the lower of two T-scores; total hip or femoral neck. IMPRESSION: 1. Bone mineral density of the lumbar spine within the range of normal limits. 2. Bone mineral density of the left femoral neck within the range of osteopenia. Reviewed, Interpreted and Dictated by Sonali Armenta MD Transcribed by Anu Philippe Authenticated and [facility]
--- OUTSIDE RECORDS SUMMARY | 2025-07-02 12:50 | XMS_ITS | Encounter Summary ---
Author Organization Healthcare Address [address] [place] [address] Care Team Providers Care Maintenance Mechanic Elevators Name Role Phone Rita Spence Primary Care Provider [phone] Encounter Details Date Type Department Care Team (Late Contact Info) Description 12/01/2024 [facility] [address] [place] [address] Mckayla Diaz MD [address] [facility] [address] [place] [address] Social History Tobacco Use Types [...] Department Care Team (Late Contact Info) Description 01/07/2026 2:00 PM EDT [facility] [address] [facility], [address] [place] [address] Darrel Cruz MD [address] [facility] [address] [place] [address] documented as of this encounter Visit Diagnoses [...] documented as of this encounter Care Teams Maintenance Mechanic Elevators Relationship Specialty Start Date End Date Rita Spence DO [address] [place] [address] PCP - General 11/20/24 documented as of this encounter
--- OUTSIDE RECORDS SUMMARY | 2025-07-02 12:50 | XMS_ITS | Patient Health Record ---
Author Organization [facility] Address [address] [place] [address] [place] [address] Care Team Providers Care Senior Safety Support Manager Name Role Phone Paul Mclaughlin Primary Care Provider McNees, Ro Unavailable [phone] Paul Mclaughlin Unavailable Unavailable Migration, Provider Unavailable [...] W/U Status Risk Notes Problem Mixed hyperlipidemia (187102381) Mixed hyperlipidemia (E78.2) Active confirmed Problem Irritable bowel syndrome with diarrhea (932933697) Irritable bowel syndrome with diarrhea (K58.0) Active confirmed Problem Sciatica (98088044) Lumbago with sciatica, right side (M54.41) Active confirmed Problem Sciatica (77901389) Lumbago with sciatica, left side (M54.42) Active confirmed Problem Mixed anxiety and depressive disorder (486638715) Depression with anxiety (F41.8) Active confirmed Problem Paresthesia (58720815) Paresthesia (R20.2) Active confirmed Problem Vitamin D deficiency (53966361) Vitamin D deficiency (E55.9) Active confirmed Problem Essential hypertension (09741690) Essential hypertension (I10) Active confirmed Problem Rupture of right rotator cuff (4299995803304237 3) Rotator cuff syndrome of right shoulder (M75.101) Active confirmed Problem Obese class I (000676241986628) BMI 33.0-33.9,adult (Z68.33) Active confirmed Problem Chronic pain (98642086) Other chronic pain (G89.29) Active confirmed Problem BMI 30+ - obesity (633381964) BMI 32.0-32.9,adult (Z68.32) Active confirmed Problem COPD - Chronic obstructive pulmonary disease (07861956) Chronic obstructive pulmonary disease, unspecified COPD type (J44.9) Active confirmed Problem Personal history of primary malignant neoplasm of breast (738855423) History of breast cancer (Z85.3) Active confirmed Problem Degeneration of lumbar intervertebral disc (62033911) Lumbar degenerative disc disease (M51.36) Active confirmed Problem Left rotator cuff syndrome (966880934521555) Rotator cuff syndrome of left shoulder (M75.102) Active confirmed Problem Urinary incontinence (623851887) Urinary incontinence, unspecified type (R32) Active confirmed Problem Incontinence of feces (53588719) Incontinence of feces, unspecified fecal incontinence type (R15.9) Active confirmed Problem Multiple premature ventricular complexes (disorder) (904364540) PVC's (premature ventricular contractions) (I49.3) Active confirmed Encounters Encounter Location Date Provider Diagnosis [facility] [address] [place] [address] [facility] [address] [place] [address] 12/30/2024 Provider Migration Chronic obstructive pulmonary disease, [...] End Date [employer] [address] [address] [place] [address] [id number] Kaykay Valencia Self - patient is the [...]
--- OUTSIDE RECORDS SUMMARY | 2025-07-02 12:50 | XMS_ITS | Encounter Summary ---
Author Organization Healthcare Address [address] [place] [address] Care Team Providers Care Fish Bait Processing Supervisor Name Role Phone Rita Spence Primary Care Provider [phone] Encounter Details Date Type Department Care Team (Latest Contact Info) Description 06/20/2025 Travel Social History Tobacco Use Types Packs/Day Years [...] 01/07/2026 2:00 PM EDT Office Visit [facility] [address] [facility], [address] [place] [address] Darrel Cruz MD [address] [facility] [address] [place] [address] documented as of this encounter [...] documented as of this encounter Care Teams Fish Bait Processing Supervisor Relationship Specialty Start Date End Date Rita Spence DO [address] [place] [address] PCP - General 11/20/24 documented as of this encounter
--- OUTSIDE RECORDS SUMMARY | 2025-07-02 12:50 | XMS_ITS | Encounter Summary ---
Author Organization [facility] Address [address] [place] [address] Care Team Providers Care Gas Prover Name Role Phone Carmella Spenceson Amber TERAN Primary Care Provider [phone] Reason for Referral * Consultation (Routine) - Closed Specialty Diagnoses / Procedures Referred By Contac t Referred To Contact Neurology Diagnoses Weakness generalized Myotonia Mckayla Diaz MD [address] [facility] [address] [place] [address] Phone: tel: fax: Referral ID Status Reason Start Date Expiration Date V isits Requested Visits Authorized [id number] Closed Specialty Services Required 02/02/2025 08/04/2026 1 1 Encounter Details Date Type Department Care Team (Late st Contact Info) Description 02/02/2025 [facility] [address] [place] [address] Mckayla Diaz MD [address] [facility] [address] [place] [address] Weakness generalized (Primary [...] 01/07/2026 2:00 PM EDT Office Visit [facility] [address] [facility], [address] [place] [address] Darrel Cruz MD [address] [place] [address] Scheduled Referrals Name Type Priority Associated Diagnoses Order Schedule Ambulatory referral to Neurology Outpatient Referral Routine Weakness generalized Myotonia Expected: 02/02/2025 (Approximate), Expires: 08/05/2026 documented as of this encounter Visit Diagnoses Diagnosis Weakness generalized- Primary Other malaise and fatigue Myotonia Spasm of muscle documented in this encounter Additional Health Concerns Assessment Noted Time PHQ-9 Depression Total Score: 0 09/11/20 24 1:56 PM EST A fall risk assessment has been complete d for the patient 11/20/2024 1:38 PM EST A Body Mass Index follow-up plan has been documented for the patient 11/20/2024 2:08 PM EST documented as of this encounter Care Teams Gas Prover Relationship Specialty Start Date End Date Rita Spence DO [address] [place] [address] PCP - General 11/20/24 documented as of this encounter
--- OUTSIDE RECORDS SUMMARY | 2025-07-02 12:50 | XMS_ITS | Clinical Summary ---
Author Organization [facility] Address [address] [place] [address] Care Team Providers Care Land Inspector Name Role Phone JordyRita Amber TERAN Primary Care Provider [phone] Allergies Active Allergy Reactions Criticality Noted Date Comments Metoprolol Dizziness,Other - pl ease document in the comment field,Unknown - Patient states they do not know rxn details High 03/20/2024 Pt does not know Medications [...] (one) time each day with dinner. Active meclizine (Antivert) 25 MG tablet Active Resolved Problems Problem Noted Date Diagnosed [...] Encounters Date Type Department Care Team Description 06/27/2025 2:20 PM EDT Clinical Support [facility] [address] [place] [address] Weakness; Myopathy 06/27/2025 1:00 PM EDT Consult [facility] [address] , [address] [place] [address] Darrel Cruz MD Weakness (Primary Dx); Myopathy 06/27/2025 Travel 06/20/2025 Travel from Last 3 Months Immunizations Immunization [...] Relation Name Comments ADD / ADHD Brother Harvey Anxiety disorder Brother Harvey Asthma Brother Harvey Obesity Brother Harvey Rheumatologic disease Brother Harvey Anxiety disorder Father Don Coronary artery disease Father Don Depression Father Don Heart disease Father Don Stroke Father Don Autoimmune disease Father's Sister Yoly Diabetes Maternal Grandmother Richelle Anxiety disorder Mother Estelle Asthma Mother Estelle Depression Mother Estelle Myopathy Mother Estelle Neuropathy Mother Estelle Seizures Mother Estelle Stroke Mother Estelle Cancer Paternal Grandfather Glad Anxiety disorder Sister Martha COPD Sister Martha Depression Sister Martha Muscular dystrophy Sister Martha Myopathy Sister Martha Neuropathy Sister Martha Obesity Sister Martha Restless legs syndrome Sister Martha Hepatitis, C Virus Son Teo [...] F) 06/27/2025 12:58 PM EDT Respiratory Rate 16 09/11/2024 1:45 PM EST Oxygen Saturation 96% 06/27/2025 12: 58 PM EDT Inhaled Oxygen Concentration - - Weight 83.9 kg (184 lb 15.5 oz) 025 12:58 PM EDT Height 157.5 cm (5' 2 ) 06/27/2025 12:5 8 PM EDT Body Mass Index 33.83 06/27/2025 12:58 PM EDT Plan of Treatment Upcoming Encounters Date Type Department Care Team (Late st Contact Info) Description 01/07/2026 2:00 PM EDT Office Visit Professional [facility] [address], [address] [place] [address] Darrel Cruz MD [address] [facility] [address] [place] [address] Health Maintenance Due Date Last [...] [facility]-Cervical Cancer Screening 04/05/2012 [facility]-HPV/Cotest 04/05/2012 04/05/2007 [facility]-Influenza Vaccine (#1) 05/28/202507/07, 07/15/2021, 06/02/2020, Additional history exists [facility]-Depression Screening 06/27/2026 06/27/2025, 1009/2024 [facility]-Diabetes: Hemoglobin A1C 06/27/2026 06/27/2025 [facility]-Pneumococcal Vaccine: 50+ Years Completed 07/22/2022, 08/27/2016 [facility]-RSV Vaccine: 60+ Years or Completed 09/30/2023 [facility]-Zoster Vaccines Completed 12/30/2023, [id number]-90 Vaccine Completed 06/25/2025, 08/28/2024, 07/09/2023, Additional history exists [facility]-Obesity Intervention Completed 025, 06/27/2025, 11/20/2024, Additional history exists HPV Vaccines Aged Out [...] Procedure Name Priority Date/Time Associated Diagnosis Comments PROTEIN ELECTROPHORESIS, PATHOLOGIST INTERPRETATION Routine 06/27/2025 2:36 PM EDT Weakness Myopathy IG PROFILE Routine 06/27/2025 2:36 PM EDT Weakness Myopathy IONIZED CALCIUM, SERUM Routine 2:36 PM EDT Weakness Myopathy PTH INTACT TOTAL Routine 06/27/2025 2:36 PM EDT Weakness Myopathy TOTAL PROTEIN, SERUM Routine 06/27/2025 2:36 PM EDT Weakness Myopathy PROTEIN ELECTROPHORESIS, SERUM Routine 06/27/2025 2:36 PM EDT Weakness Myopathy QIG, SERUM Routine 06/27/2025 2:36 PM EDT Weakness Myopathy CREATINE KINASE, [...] 06/27/2025 2: 36 PM EDT Weakness Myopathy METHYLMALONIC ACID SERUM Routine 06/27/2025 2:36 PM EDT Weakness Myopathy HEMOGLOBIN A1C Routine 06/27/2025 2:36 PM EDT Weakness Myopathy FOLATE, SERUM Routine 06/27/2025 2:36 PM EDT Weakness Myopathy CYTO DATA CONVERSION Routine 04/05/2007 12:00 AM EDT from Last 3 Months or Most Recently Relevant to Health Maintenance Results * (ABNORMAL) QIG, Serum (06/27/2025 2:36 PM EDT) IGA 114 75 - 400 mg/dL 06/27/2025 6:24 PM EDT [facility] IGG 598(L) 720 - 1,589 mg/dL 06/27/2025 6:24 PM EDT [facility] IGM 60 35 - 225 mg/dL 06/27/2025 6:24 PM EDT [facility] Blood Venous blood specimen / Unknown Venipuncture / Unknown 06/27/2025 2:36 PM EDT 06/27/2025 2:37 PM EDT us Darrel Cruz MD LAB BLOOD ORDERABLES Final Resul t Performing Organization Address City/[facility] Co de Phone Number [facility] [address] [place] [address] * TSH Reflex FT4 (06/27/2025 2:36 PM EDT) Thyroid Stimulating Hormone, Plasma 2.32 0.40 - 4.20 uIU/mL 06/27/2025 5:51 PM EDT [facility] Blood Venous blood specimen / Unknown Venipuncture / Unknown 06/27/2025 2:36 PM EDT 06/27/2025 2:37 PM EDT us Darrel Cruz MD LAB BLOOD ORDERABLES Final Resul t Performing Organization Address [facility] Phone Number [facility] [address] [place] [address] * Total Protein, Serum (06/27/2025 2:36 PM EDT) Total Protein 6.9 6.2 - 7.7 g/dL 06/27/2025 6:24 PM EDT [facility] Blood Venous blood specimen / Unknown Venipuncture / Unknown 06/27/2025 2:36 PM EDT 06/27/2025 2:37 PM EDT us Darrel Cruz MD LAB BLOOD ORDERABLES Final Resul t Performing Organization Address City/[facility] Co de Phone Number [facility] [address] [place] [address] * Protein Electrophoresis, Serum (06/27/2025 2:36 PM EDT) Albumin Electrophoresis, Serum 4.2 3.6 - 4.7 g/dL 06/28/2025 2:36 AM EDT [facility] Alpha 1 Globulin Electrophoresis, Serum 0.3 0.2 - 0.4 g/dL 06/28/2025 2:36 AM EDT [facility] Alpha 2 Globulin Electrophoresis, Serum 0.9 0.5 - 0.9 g/dL 06/28/2025 2:36 AM EDT [facility] Beta 1 Globulin Electrophoresis, Serum 0.5 0.3 - 0.5 g/dL 06/28/2025 2:36 AM EDT [facility] Beta 2 Globulin Electrophoresis, Serum 0.4 0.2 - 0.5 g/dL 06/28/2025 2:36 AM EDT [facility] Gamma Globulin Electrophoresis, Serum 0.6 0.6 - 1.5 g/dL 06/28/2025 2:36 AM EDT [facility] Interpretation, Serum Protein Electrophoresis Pathology report to follow. 06/28/2025 2:36 AM EDT [facility] Blood Venous blood specimen / Unknown Venipuncture / Unknown 06/27/2025 2:36 PM EDT 06/27/2025 2:37 PM EDT us Darrel Cruz MD LAB BLOOD ORDERABLES Final Resul t [facility] [address] [place] [address] * Protein electrophoresis serum, pathologist interpretation (06/27/2025 2:36 PM EDT) Clinical Diagnosis, SPEP Weakness; Myopathy 06/28/2025 11:23 AM EDT [facility] Interpretation , SPEP The otherwise [...] diagnosis or interpretation. 06/28/2025 11:23 AM EDT [facility] Pathologist Signature, SPEP Reviewed by: Giovanni Hanson MD 06/28/2025 11:23 AM EDT [facility] LAB CP ASR DISCLAIMER Yes 06/28/2025 11:23 AM EDT [facility] Blood Venous blood specimen / Unknown Venipuncture / Unknown 06/27/2025 2:36 PM EDT 06/27/2025 2:37 PM EDT us Darrel Cruz MD LAB PATHOLOGY ORDERABLES Final R esult Performing Organization Address City/[facility]/ZIP Co de Phone Number [facility] [address] [place] [address] * Ionized calcium, serum (06/27/2025 2:36 PM EDT) Ionized Calcium, Serum 5.0 4.6 - 5.3 mg/dL LAB HEMATOLOGY METHOD 06/27/2025 5:36 PM EDT [facility] Blood Venous blood specimen / Unknown Venipuncture / Unknown 06/27/2025 2:36 PM EDT 06/27/2025 2:37 PM EDT us Darrel Cruz MD LAB BLOOD ORDERABLES Final Resul t Performing Organization Address City/[facility] Co de Phone Number [facility] [address] [place] [address] * Creatine Kinase, Total, Plasma (06/27/2025 2:36 PM EDT) Creatine Kinase, Plasma 41 37 - 168 U/L 06/27/2025 5:51 PM EDT [facility] Blood Venous blood specimen / Unknown Venipuncture / Unknown 06/27/2025 2:36 PM EDT 06/27/2025 2:37 PM EDT us Darrel Cruz MD LAB BLOOD ORDERABLES Final Resul t Performing Organization Address City/[facility] Co de Phone Number [facility] [address] [place] [address] * (ABNORMAL) IG Profile (06/27/2025 2:36 PM EDT) IGA 112 75 - 400 mg/dL 06/28/2025 3:45 PM EDT [facility] IGG 600(L) 720 - 1,589 mg/dL 06/28/2025 3:45 PM EDT [facility] IGM 60 35 - 225 mg/dL 06/28/2025 3:45 PM EDT [facility] Blood Venous blood specimen / Unknown Venipuncture / Unknown 06/27/2025 2:36 PM EDT 06/27/2025 2:37 PM EDT Darrel Cruz MD LAB BLOOD ORDERABLES Final Resul t Performing Organization Address [facility] de Phone Number [facility] [address] [place] [address] * Methylmalonic Acid (06/27/2025 2:36 PM EDT) Methylmalonic Acid 172 50 - 400 nmol/L 06/30/2025 9:58 AM EDT [facility] Blood Venous blood specimen / Unknown Venipuncture / Unknown 06/27/2025 2:36 PM EDT 06/27/2025 2:37 PM EDT Narrative [facility] - 06/30/2025 9:58 AM EDT Test performed by LC-MS/MS at the [facility]. This test was developed and its performance characteristics determined by [facility]. It has not been cleared or approved by the FDA. The laboratory is regulated under CLIA as qualified to perform high-complexity testing. This test is used for clinical purposes. Darrel Cruz MD LAB BLOOD ORDERABLES Final Resul t Performing Organization Address [facility] de Phone Number [facility] [address] [place] [address] * Aldolase (06/27/2025 2:36 PM EDT) ALDOLASE 3.6 1.2 - 7.6 U/L 06/30/2025 2:09 PM EDT [facility] ([facility]) Blood Venous blood specimen / Unknown Venipuncture / Unknown 06/27/2025 2:36 PM EDT 06/27/2025 2:37 PM EDT Narrative [facility] ([facility]) - 06/30/2025 2:09 PM EDT REFERENCE INTERVAL: Aldolase Access complete set of age- and/or gender-specific reference intervals for this test in the [email or web address] Test Directory ([email or web address]). Performed By: [facility] [address] [place] [address] Supervisor Painting Shipyard: Kevin Min MD, PhD CLIA Number: [id number] us Darrel Cruz MD LAB BLOOD ORDERABLES Final Resul t Performing Organization Address City/[facility] Co de Phone Number [facility] ([facility]) [address] [place] [address] * Vitamin D 1,25 dihydroxy (06/27/2025 2:36 PM EDT) VITAMIN D, 1, 25-DIHYDROXY 36.0 19.9 - 79.3 pg/mL 06/28/2025 5:03 AM EDT [facility] Blood Venous blood specimen / Unknown Venipuncture / Unknown 06/27/2025 2:36 PM EDT 06/27/2025 2:37 PM EDT us Darrel Cruz MD LAB BLOOD ORDERABLES Final Resul t Performing Organization Address City/[facility]/ZIP Co de Phone Number [facility] [address] [place] [address] * (ABNORMAL) PTH Intact Total (06/27/2025 2:36 PM EDT) PTH Intact Total 107(H) 9 - 77 pg/mL 06/27/2025 6:22 PM EDT [facility] Blood Venous blood specimen / Unknown Venipuncture / Unknown 06/27/2025 2:36 PM EDT 06/27/2025 2:37 PM EDT Narrative [facility] - 06/27/2025 6:22 PM EDT Assay performed by immunoassay at the [facility]. Performed on [employer] Traffic Worker chemiluminescent immunoassay, tractable to the World Health Organization's first international standard for PTH from the NIBS, Code 79/500. Results obtained from different test methods or kits cannot be used interchangeably. us Darrel Cruz MD LAB BLOOD ORDERABLES Final Resul t Performing Organization Address City/[facility]/ZIP Co de Phone Number [facility] [address] [place] [address] * (ABNORMAL) Hemoglobin A1c (06/27/2025 2:36 PM EDT) Hemoglobin A1c 6.0(H) <5.7 % 06/27/2025 7:10 PM EDT [facility] Blood Venous blood specimen / Unknown Venipuncture / Unknown 06/27/2025 2:36 PM EDT 06/27/2025 2:37 PM EDT Narrative [facility] - 06/27/2025 7:10 PM EDT HA1C Interpretive Data: Diagnosis of Diabetes: Diabetic > or = 6.5% Pre-diabetic 5.7 to 6.4% Non-diabetic < or = 5.6% Glycemic Targets for Type I and Type II Diabetics: Non- Adults <7.0% Adults <6.0% Children and Adolescents <7.5% Source: [place] Diabetes Association. Standards of medical care in diabetes,2017. Diabetes Care.2017:40 (suppl 1):S1-S135. us Darrel Cruz MD LAB BLOOD ORDERABLES Final Resul t Performing Organization Address [facility] [place] [address] * Folate (06/27/2025 2:36 PM EDT) Folate, Serum 17.2 >4.6 ng/mL 06/27/2025 6:30 PM EDT [facility] Blood Venous blood specimen / Unknown Venipuncture / Unknown 06/27/2025 2:36 PM EDT 06/27/2025 2:37 PM EDT us Darrel Cruz MD LAB BLOOD ORDERABLES Final Resul t Performing Organization Address [facility]/ZIP Co de Phone Number [facility] [address] [place] [address] * Vitamin B12, Serum (06/27/2025 2:36 PM EDT) Vitamin B12, Serum 529 210 - 1,033 pg/mL 06/27/2025 6:30 PM EDT [facility] Blood Venous blood specimen / Unknown Venipuncture / Unknown 06/27/2025 2:36 PM EDT 06/27/2025 2:37 PM EDT us Darrel Cruz MD LAB BLOOD ORDERABLES Final Resul t [facility] [address] [place] [address] * Cytology (04/05/2007 12:00 AM EDT) Breast fine needle aspirate specimen (specimen) 04/05/2007 04/06/2007 7:48 AM EDT Narrative [facility] - 04/06/2007 10:27 AM EDT [facility] MR #: [id number] [place] [id number] [id number] (Age: 46) FW Collect Date: 04/05/2007 00:00 Receipt Date: 04/06/2007 07:48 Page 1 DEPARTMENT OF PATHOLOGY AND LABORATORY MEDICINE CYTOPATHOLOGY REPORT Email: [email or web address] ATTENDING MD/Practitioner: Isis Mitchell MD Service: [facility] Location: [facility] OTHER MD(S): Nazario Pires MD Reported: 04/06/2007 [...] PERSONAL HISTORY OF MALIGNANT NEOPLASM F: A; 54181 ASP INTER, 11041 FNA PATHO SNOMED CODES: A; S20361 [id number] P1149 A resident has participated in this service. A pathologist has performed and is responsible for the reported pathologic evaluation. us Historical Provider LAB PATHOLOGY ORDERABLES Fin al Result [facility] from Last 3 Months or Most Recently Relevant to Health Maintenance Insurance [facility] MEDICARE Care Teams Land Inspector Relationship Specialty Start Date End Date Rita Spence DO [address] [place], [place] [address] [place] [address] PCP - General 11/20/24
--- OUTSIDE RECORDS SUMMARY | 2025-07-02 12:50 | XMS_ITS | Clinical Summary ---
Author Organization [employer] ([place], [place], [place], [place]) Address [address] [place] [address] Care Team Providers Care Horse Racing Analyst Name Role Phone Rita Spenec DO Primary Care Provider [phone] Allergies Active Allergy Reactions Criticality Noted Date [...] Comments ADD / ADHD Brother 1 Harvey [place] Anxiety disorder Brother 1 Harvey [place] Diabetes Brother 2 Glenn 1/2 brother Anxiety [...] your living situation today? I have a [facility] place to live 11/21/2024 Think about [...] Do you speak a language other than [facility]? No 11/21/2024 Do you want help [...] you used [place] legal drugs? 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 Gender Identity Not on file Sexual Orientation [...] Lipid Panel 11/29/2004 Lung cancer screening 11/29/2009 Falls Risk Screening 09/27/2024 Medicare IPPE (Welcome to Medicare) [id number] 09/27/2024 COVID-19 VACCINE ( season) 2025, 01/02/2021 Influenza Vaccine (#1) 2025 07/07/2022 Respiratory Syncytial Virus (RSV) Adult or (1 - 1-dose 75+ series) 11/29/2034 Pneumococcal 50+ years Completed 07/22/2022 Shingles Vaccine (Zoster) Completed 12/30/2023, 09/2023 [place] [address] [facility] MEDICARE PPO Advance Directives For more information, please contact: [phone] * Full Code (Latest Code Status on File) Date Activated Date Inactivated Comments 11/21/2024 9:28 AM 11/23/2024 4:12 PM Care Teams Horse Racing Analyst Relationship Specialty Start Date End Date Rita Spence, [address] [facility] [address] [place] [address] PCP - General Family Medicine 11/21/24
--- OUTSIDE RECORDS SUMMARY | 2025-07-02 12:50 | XMS_ITS | Encounter Summary ---
Author Organization [facility] Address [address] [place] [address] Care Team Providers Care Tour Operator Name Role Phone Ro Hines HUDSON Primary Care Provider [phone] Rita Spence DO Primary Care Provider [phone] Reason for Referral * Consultation (Routine) - Closed Specialty Diagnoses / Procedures Referred By Contac t Referred To Contact Rheumatology Diagnoses Weakness Mckayla Diaz MD [address] [facility] [address] [place] [address] Phone: tel: fax: Referral ID Status Reason Start Date Expiration Date V isits Requested Visits Authorized [id number] Closed Specialty Services Required 08/30/2024 03/01/2026 1 1 Encounter Details Date Type Department Care Team (Late st Contact Info) Description 08/30/2024 [facility] [address] [place] [address] Mckayla Diaz MD [address] [facility] [address] [place] [address] Weakness (Primary Dx) Social History Tobacco [...] 01/07/2026 2:00 PM EDT Office Visit [facility] [address] [facility] [address], [address] [place] [address] Darrel Cruz MD [address] [place] [address] Scheduled Referrals Name Type Priority Associated Diagnoses Order Schedule Ambulatory referral to Rheumatology Outpatient Referral Routine Weakness Expected: 08/30/2024 (Approximate), Expires: 02/28/2026 documented as of this encounter Visit Diagnoses Diagnosis Weakness- Primary Other malaise and fatigue documented in this encounter Care Teams Tour Operator Relationship Specialty Start Date End Date Ro Hines APRN [address] [facility] [address] [place] [address] PCP - General 02/07/21 11/19/24 Rita Spence DO [address] [place] [address] PCP - General 11/20/24 documented as of this encounter
--- OUTSIDE RECORDS SUMMARY | 2025-07-02 12:50 | XMS_ITS | Referral Summary ---
Author Organization [employer] ([place], [place], [place], [place]) [address] [place] [address] Care Team Providers Care College Dean Name Role Phone JordyRita Amber TERAN Primary Care Provider [phone] Allergies Active Allergy Reactions Criticality Noted Date [...] your living situation today? I have a [facility] place to live 11/21/2024 Think about the [...] Do you speak a language other than [facility]? 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
--- OUTSIDE RECORDS SUMMARY | 2025-07-02 12:50 | XMS_ITS | Encounter Summary ---
Author Organization [facility] Address [facility] [address] Care Team Providers Care Cupola Liner Name Role Phone Rita Spence Primary Care Provider [phone] Encounter Details Date Type Department Care Team (Latest Contact Info) Description 06/27/2025 Travel Social History Tobacco Use Types Packs/Day [...] Nearly every day 06/27/2025 12:56 PM EDT SweatChentea L Poor appetite or overeating Not at all 06/27/2025 12 :56 PM EDT Sweat Summa L Feeling bad about yourself - or that you are a failure or have let yourself or your family down Not at all 06/27/2025 12:56 PM EDT SweatKen L Trouble concentrating on things, such as reading the newspaper or watching television Several days 06/27/2025 12:56 PM EDT SweatKen L Moving or speaking so slowly that [...] Questionnaire-9 Score 5 06/27/2025 12:56 PM EDT SweatKen * How difficult have these problems made [...] Description 01/07/2026 2:00 PM EDT Office Visit [facility] [address] [facility] [facility] [address], [address] [place] [address] Darrel Cruz MD [address] [facility] [address] [place] [address] documented as of this encounter [...] documented as of this encounter Care Teams Cupola Liner Relationship Specialty Start Date End Date Rita Spence DO [address] [place] [address] PCP - General 11/20/24 documented as of this encounter
--- OUTSIDE RECORDS SUMMARY | 2025-07-02 12:50 | XMS_ITS | Clinical Summary ---
[facility] Organization [facility] Address [address] [place] [address] Care Team Providers Care Blow Molding Machine Operator Name Role Phone Provider, No Known Primary [...] ANNUAL PHYSICAL 08/04/2017 HEPATITIS C SCREENING 08/04/2017 INFLUENZA VACCINE 04/27/2025 COVID-19 Vaccine ( season) 2025 Insurance PPO Care Teams Blow Molding Machine Operator Relationship Specialty Start Date End Date Provider, [place] [address] PCP - General 08/04/17
== END 2025-07-02 23:59 | disposition home or self-care (01) ==
LOC: RAD 12:47
PROVIDERS: PCP Family Medicine; Visit Provider Family Medicine
DX: Z12.31 Encounter for screening mammogram for malignant neoplasm of breast (principal); R92.323 Mammographic fibroglandular density, bilateral breasts; M85.852 Other specified disorders of bone density and structure, left thigh; Z85.3 Personal history of malignant neoplasm of breast; Z98.890 Other specified postprocedural states; Z13.820 Encounter for screening for osteoporosis
CPT/HCPCS: 77063; 77067; 77080

== ENCOUNTER 2025-09-04 10:03 | Outpatient (CLI) | payer MEDICARE, SELFPAY ==
[2025-09-04 09:07] VITALS: BMI 33.5
[2025-09-04 10:47] LABS: Anion Gap 16.9 mEq/L (5-15); Blood Urea Nitrogen 7 mg/dl (7-17); Calcium 9.1 mg/dl (8.4-10.2); Carbon Dioxide 22 mmol/L (22.0-30.0); Chloride 102 mmol/L (98-107); Creatinine Clearance Estimated 73 mL/min (50-200); Creatinine,Serum 0.50 mg/dl (0.52-1.04); Estimated Glomerular Filt Rate 124 ml/min (>60); GFR (African American) 150 ML/MIN (>60); Glucose 147 mg/dl (74-100); Potassium 3.9 mmoL/L (3.5-5.1); Sodium 137 mmol/L (136-145)
[2025-09-04 10:53] LABS: Hematocrit 38.1 % (37.0-47.0); Hemoglobin 13.4 g/dL (12.2-16.2); Immature Granulocytes % 0.4 %; Mean Corpuscular HGB Conc 35.2 g/dL (31.8-35.4); Mean Corpuscular Hemoglobin 31.7 pg (27.0-31.2); Mean Corpuscular Volume 90.1 fl (81-99); Nucleated Red Blood Cells % 0 %; Platelet Count 309 K/mm3 (142-424); Red Blood Count 4.23 M/mm3 (4.20-5.40); Red Cell Distribution Width-SD 39.2 fL; White Blood Count 9.6 K/mm3 (4.8-10.8)
== END 2025-09-04 23:59 | disposition home or self-care (01) ==
LOC: PREOP 10:04
PROVIDERS: PCP Family Medicine; Visit Provider Anesthesiology
DX: Z01.812 Encounter for preprocedural laboratory examination (principal)
CPT/HCPCS: 80048; 85025

== ENCOUNTER 2025-09-07 07:56 | Day surgery (SDC) | payer MEDICARE, SELFPAY ==
[2025-09-04 14:42] VITALS: BMI 32.0
[2025-09-07 08:21] VITALS: BP 136/83; PULSE 72; RESP 16; TEMP 36.4; O2SAT 98; BMI 32.0
[2025-09-07] MEDS: LACTATED RINGERS 1000ML 1,000 ML 25 ML IV (08:39)
--- NOTE | 2025-09-07 09:10 | EXP.ANES.CKL ---
[facility] Disclaimer: The information contained in this section may have been updated after the patient was seen, as this information can be updated by other users. Medical History Preop examination Fibromyalgia Pre-syncope Confusion History of emphysema History of vertigo Restless leg syndrome Brain lesion Hx of breast cancer On Xarelto Palpitations TIA (transient ischemic attack) Left-sided weakness Aphasia Asthma COPD (chronic obstructive pulmonary disease) Anxiety Depression IBS (irritable bowel syndrome) delivery delivered X2 Surgical History History of section History of colonoscopy Hx of cholecystectomy H/O partial mastectomy RIGHT Family History Mother Brain tumor Other Blood disorder Cancer Coronary artery disease Heart attack Hypertension Social History (Updated 09/07/25 @ 08:23 by Maryanne Austin RN) Smoking Status: Former smoker (quit 8 years ago) alcohol intake: never counseling provided: provider counseling substance use type: denies use current occupational status: retired Travel in the last 8 weeks?: None household members: spouse housing: house number of children: 2 (46 and 44 years old) current occupational exposures/hazards: No caffeine: Yes Have you lived/traveled outside [place] in past 30 days?: No Contact w/someone who lives/traveled outside US past 30 days?: No Exposure to someone with infectious disease in past 14 days?: No Do you have a fever (greater than 100.4 F or 38 C)?: No Have you tested positive for COVID-19?: No Exposed to someone with COVID-19 in past 14 days?: No Do you have a sore throat?: No Do you have a cough?: No Do you have any weakness?: No Are you experiencing any nausea/vomitting?: No Do you have any diarrhea?: No Are you experiencing any unusual bleeding?: No Do you have any muscle aches/pain?: No Do you have any abdominal pain?: No Are you experiencing loss of taste or smell?: No [facility] Anesthesia Checklist Patient Identification Patient Identification: Arm Band and Verbal (Name & ) Structural Data Admitted From: Home Planned Operative Procedure/s: SCS Trial Consent for Planned Operative Procedure(s) Verified: Yes Verified Documents: Surgical Consent NPO Status Verified Time NPO: 00:00 Additional verifications Anesthesia Reactions: No Hx Blood Transfusions: No Blood Transfusion Reaction: No Airway Assessment Mallampati Score:: Class II C-Spine Mobility Assessed: Yes TMJ Mobility Assessed: Yes Dentition: Good Dentition Neurological Assessment Level of Consciousness: Awake, Alert and Appropriate Hx Seizures: No Numbness or tingling in extremities: No Anesthesia Plan Anesthesia Risk discussed: Yes Anesthesia Plan: Verified ASA Class: III Anesthesia Type: MAC
[2025-09-07] MEDS: LIDOCAINE 1% W/EPI 1:100,000 20ML VIAL 20 ML (10:50)
[2025-09-07 11:09] VITALS: BP 144/70; PULSE 90; RESP 17; TEMP 36.3; O2SAT 98
[2025-09-07 11:30] VITALS: BP 162/67; PULSE 73; RESP 18; O2SAT 97
--- NOTE | 2025-09-07 12:29 | EXP.HP ---
History of Present Illness *Admission Date: 09/07/25 *Reason for visit:: Spinal cord stimulator trial *History of present illness: Patient is a pleasant 64-year-old white female who we are treating for degenerative disease of lumbar spine with lumbar radiculopathy symptoms. She presents for spinal cord stimulator trial today. [facility] Disclaimer: The information contained in this section may have been updated after the patient was seen, as this information can be updated by other users. Medical History Preop examination Fibromyalgia Pre-syncope Confusion History of emphysema History of vertigo Restless leg syndrome Brain lesion Hx of breast cancer On Xarelto Palpitations TIA (transient ischemic attack) Left-sided weakness Aphasia Asthma COPD (chronic obstructive pulmonary disease) Anxiety Depression IBS (irritable bowel syndrome) delivery delivered X2 Surgical History History of section History of colonoscopy Hx of cholecystectomy H/O partial mastectomy RIGHT Family History Mother Brain tumor Other Blood disorder Cancer Coronary artery disease Heart attack Hypertension Social History (Updated 09/07/25 @ 08:23 by Maryanne Austin RN) Smoking Status: Former smoker (quit 8 years ago) alcohol intake: never counseling provided: provider counseling substance use type: denies use current occupational status: retired Travel in the last 8 weeks?: None household members: spouse housing: house number of children: 2 (46 and 44 years old) current occupational exposures/hazards: No caffeine: Yes Have you lived/traveled outside US in past 30 days?: No Contact w/someone who lives/traveled outside US past 30 days?: No Exposure to someone with infectious disease in past 14 days?: No Do you have a fever (greater than 100.4 F or 38 C)?: No Have you tested positive for COVID-19?: No Exposed to someone with COVID-19 in past 14 days?: No Do you have a sore throat?: No Do you have a cough?: No Do you have any weakness?: No Are you experiencing any nausea/vomitting?: No Do you have any diarrhea?: No Are you experiencing any unusual bleeding?: No Do you have any muscle aches/pain?: No Do you have any abdominal pain?: No Are you experiencing loss of taste or smell?: No Other Medical History Have you received the Flu Vaccine for this season: Yes Have you received the Pneumonia Vaccine: No Review of Systems Review of Systems Review of systems:: pertinent systems reviewed and negative unless documented below Meds Home Medications and Allergies Home Medications ?Medication ?Instructions ?Recorded ?Confirmed ?Type fluticasone fur. 100 mcg-umeclid 1 inh inhalation DAILY allergies 04/05/19 09/07/25 History 62.5 mcg-vilant 25 mcg inhalat.powder (Trelegy Ellipta) azelastine 205.5 mcg (0.15 %) 205.5 mcg intranasal BID PRN 04/18/24 09/07/25 History nasal spray allergies bisoprolol fumarate 5 mg tablet 5 mg PO DAILY 04/18/24 09/07/25 History simvastatin 20 mg tablet 20 mg PO DAILY 04/18/24 09/07/25 History albuterol sulfate 90 mcg/actuation 1 mcg inhalation DIRECTED PRN 08/09/24 09/07/25 History aerosol inhaler Asthma duloxetine 60 mg capsule,delayed 60 mg PO ONCE 11/28/24 09/07/25 History release lisinopril 20 mg tablet 20 mg PO DAILY 11/28/24 09/07/25 History rivaroxaban 20 mg tablet (Xarelto) 20 mg PO DAILY #30 tabs 03/08/25 09/07/25 Rx ropinirole 0.5 mg tablet 0.5 mg PO HS #30 tabs 07/03/25 09/07/25 Rx sulfamethoxazole 800 1 tab PO BID 7 days #14 tabs 09/07/25 Rx mg-trimethoprim 160 mg tablet (Bactrim DS) New Prescriptions to Start Prescriptions: sulfamethoxazole-trimethoprim [Bactrim DS] Bux,[facility] Allergies Allergy/AdvReac Type Severity Reaction Status Date / Time metoprolol AdvReac Intermediate Dizziness Verified 09/07/25 08:38 Exam Data for Last 24 hours Vital signs and Labs for Last 24 Hours: Temp Pulse Resp BP Pulse Ox O2 Del Method 97.4 F L 73 18 162/67 H 97 Room Air 09/07/25 11:09 09/07/25 11:30 09/07/25 11:30 09/07/25 11:30 09/07/25 11:30 09/07/25 11:30 I & O for Last 24 hours: Intake & Output 09/05/25 09/06/25 09/07/25 09/08/25 11:59 11:59 11:59 11:59 Intake Total 1050 / 1050 Balance 1050 / 1050 Weight 175 lb 175 lb *Routine HEENT Exam Head: Present normocephalic Eye: Present EOMI ENT: Present mucous membranes moist *Routine Respiratory Exam Respiratory: Present CTA bilaterally *Routine Cardiovascular Exam Cardiovascular: Present RRR, Normal S1 and Normal S2 *Routine Abdominal Exam Abdominal: Present soft *Routine Rectal Exam Rectal:: deferred *Routine Genitalia Exam Genitalia:: deferred Assessment and Plan *Assessment and plan (1) Degenerative disc disease, lumbar: Status: Chronic Qualifiers: Disc-related pain type: discogenic back pain and lower extremity pain Qualified Code(s): M51.362 - Other intervertebral disc degeneration, lumbar region with discogenic back pain and lower extremity pain Category: Medical Code(s): M51.369 - Other intervertebral disc degeneration, lumbar region without mention of lumbar back pain or lower extremity pain Plan Spinal cord stimulator trial
--- NOTE | 2025-09-07 12:33 | P.OP_ITS ---
Date of procedure: 09/07/25 Pre-op Diagnosis:: Degenerative disc disease of lumbar spine with lumbar radiculopathy symptoms Post-op Diagnosis:: Same Procedure performed:: Spinal cord stimulator trial Surgeon:: Sanford Holguin MD BRAND STRATEGY MANAGER:: Faraz Brewer Anesthesia: MAC Estimated blood loss (mL): 1 Clinical Note:: This patient is a pleasant 64-year-old white female who we are treating for degenerative disc disease of lumbar colopathy symptoms. As for spinal cord stimulator trial today. She has failed all previous conservative treatments including injections, oral medications, physical therapy and she is not a candidate for surgery. She has had a successful psychological evaluation. Operative findings:: None Operative note:: Informed consent was obtained risk and benefits of the procedure were explained to the patient. Patient was taken operating room placed prone on the procedure table. She was prepped and draped in sterile C-arm fluoroscopy was used to view lumbar spine. The skin and subcutaneous tissues adjacent to the L1-L2 interspace were anesthetized using lidocaine. A 14-gauge epidural needle was inserted and advanced into the L1-L2 interspace. After confirmation needle placement in the epidural space a stimulating lead was inserted and advanced very easily to the T7-T8-T9. A second needle was inserted and advanced again into the L1-L2 interspace. Again after confirmation needle placement in the epidural space a second lead was inserted and advanced again into the T7-T8-T9 vertebral body. Both leads were left and right of midline at the posterior. We did test on the table with good stimulation in all areas of pain. The leads were secured and the patient was taken recovery in stable condition. The patient was programmed to the [employer] medical customer service representative with good relief of pain symptoms. Patient was discharged home neurologic intact with good relief of pain symptoms. Plan and disposition: Will follow-up with this patient in 1 week for lead pull. If successful plan on permanent placement. Condition: stable Disposition: PACU Complications:: none
== END 2025-09-07 11:40 | disposition home or self-care (01) ==
PROVIDERS: PCP Family Medicine; Visit Provider Anesthesiology
PROC: (CPT 63650; principal; 2025-09-07 09:45)
DX: M51.362 Other intervertebral disc degeneration, lumbar region with discogenic back pain and lower extremity pain (principal); J44.89 Other specified chronic obstructive pulmonary disease; M79.7 Fibromyalgia; Z86.73 Personal history of transient ischemic attack (TIA), and cerebral infarction without residual deficits; Z87.891 Personal history of nicotine dependence; Z79.01 Long term (current) use of anticoagulants; Z90.11 Acquired absence of right breast and nipple; Z90.49 Acquired absence of other specified parts of digestive tract
CPT/HCPCS: 63650; C1778; J2004; J7120